=== PATIENT | male | born 1940 | race Caucasian/White ===

== ENCOUNTER 2017-08-28 09:26 | Emergency (ER) | payer MEDICARE, BC ==
[2017-08-28 09:41] VITALS: BP 140/85
[2017-08-28] MEDS ORDERED: Sulfamethoxazole/Trimethoprim 800-160 MG Tab PO ONE (10:42)
--- NOTE | 2017-08-28 10:45 | EDM.PDOC ---
ED HPI GENERAL MEDICAL PROBLEM - General Chief Complaint: Genitourinary Problem Stated Complaint: CATHETHER IS PLUGGED Time Seen by Provider: 08/28/17 10:15 Source of Information: Reports: Patient History Limitations: Reports: No Limitations - History of Present Illness INITIAL COMMENTS - FREE TEXT/NARRATIVE: 77-year-old male attends the ED due to dysfunction or malfunction of his suprapubic catheter which was just replaced 9 days ago. Patient has had a chronic indwelling suprapubic catheter for 20 years. 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 He states over the last 4 days usually been 100 mils of drainage of urine in his drainage bag. He states he is dribbling continues continuously through the penis of urine soaking his depends. He has no abdominal pain. Bladder scan done by nursing staff revealed only 12 mils of urine to be within the bladder. He denies any fever chills. 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 (see below) - Related Data Allergies Allergy/AdvReac Type Severity Reaction Status Date / Time No Known Allergies Allergy Verified 08/28/17 09:41 Home Meds: Home Meds Bicalutamide [Casodex] 50 mg PO DAILY 03/21/15 [History] Leuprolide Acetate [Lupron Depot] 1 dose IM ASDIRECTED 03/21/15 [History] Multivitamin [Multivitamins] 1 each PO DAILY 03/21/15 [History] Polyethylene Glycol 3350 [MiraLAX] 17 gm PO ASDIRECTED 03/21/15 [History] Simvastatin [Zocor] 40 mg PO DAILY 03/21/15 [History] metFORMIN [Glucophage] 500 mg PO DAILY 03/21/15 [History] Sertraline [Zoloft] 50 mg PO DAILY 08/28/17 [History] Past Medical History Other HEENT History: reading glasses Other Gastrointestinal History: currently having rectal bleeding Other Musculoskeletal History: chronic leg pain Other Oncologic History: transitional cell bladder cancer - Past Surgical History GI Surgical History: Reports: Colostomy Male Surgical History: Reports: Suprapubic Catheter Placement, TURP- Transurethral Resection of Prostate Other Male Surgeries/Procedures: prostatectomy, TURP, calculous of bladder, diverticulum of bladder Social & Family History - Tobacco Use Smoking Status *Q: Current Every Day Smoker Years of Tobacco use: 60 Packs/Tins Daily: 0.7 - Caffeine Use Caffeine Use: Reports: Coffee, Soda - Alcohol Use Days Per Week of Alcohol Use: 0 - Recreational Drug Use Recreational Drug Use: No Drug Use in Last 12 Months: No - Living Situation & Occupation Living situation: Reports: Occupation: Retired ED ROS GENERAL - Review of Systems Review Of Systems: See Below Constitutional: Denies: Fever, Chills, Malaise, Weakness, Fatigue, Weight Loss HEENT: Reports: No Symptoms Respiratory: Reports: Shortness of Breath, Cough Cardiovascular: Reports: Blood Pressure Problem. Denies: Chest Pain, Claudication, Dyspnea on Exertion, Edema, Lightheadedness, Orthopnea, Palpitations Endocrine: Reports: Fatigue GI/Abdominal: Reports: Other (Has a chronic suprapubic Cristina catheter. Patient has an colostomy left lower quadrant of the abdomen.). Denies: Abdominal Pain, Anorexia, Black Stool, Bloody Stool : Reports: Other (Chronic suprapubic Cristina catheter. Currently drooping urine per penile urethra for the last 3-4 days due to malfunction occlusion of his suprapubic catheter.) Skin: Reports: No Symptoms Neurological: Reports: No Symptoms Psychiatric: Reports: No Symptoms ED EXAM, RENAL/ - Physical Exam Exam: See Below Exam Limited By: No Limitations General Appearance: Alert, WD/WN, Anxious, Mild Distress GI/Abdominal: Other (Suprapubic catheter wound site is slightly erythematous. He has some intertrigo from skin abutting skin across the lower abdomen.). No: Abnormal Bowel Sounds (Male) Exam: No Hernia, Other (Is oozing clear urine from the penile urethra. His current depends is soaked with urine.) Extremities: Normal Inspection, Normal Range of Motion, Non-Tender, No Pedal Edema Neurological: Alert, CN II-XII Intact, Normal Cognition Psychiatric: Normal Affect, Normal Mood Skin Exam: Warm, Dry, Intact, Normal Color Course - Vital Signs Last Recorded V/S: Last Vital Signs Temp 36.8 C 08/28/17 09:37 Pulse 100 08/28/17 09:37 Resp 16 08/28/17 09:37 BP 140/85 08/28/17 09:37 Pulse Ox 100 08/28/17 09:37 - Orders/Labs/Meds Orders: Active Orders 24 hr Category Date Time Status Insert Cristina Catheter [Insert Urinary Catheter] [OM.PC] Care 08/28/17 10:45 Ordered Q24H Urinary Catheter Assessment [RC] ASDIRECTED Care 08/28/17 10:42 Active Meds: Medications Discontinued Medications Generic Name Dose Route Start Last Admin Trade Name Frebea PRN Reason Stop Dose Admin Trimethoprim/Sulfamethoxazole 1 tab 08/28/17 10:42 08/28/17 10:48 Septra Ds PO 08/28/17 10:43 1 tab ONETIME ONE Administration - Radiology Interpretation Free Text/Narrative:: 77-year-old male presents to the ED with malfunction of his suprapubic catheter for the last 3-4 days. States it's only drained about 100 mils into his drainage bag over the last 3-4 days. The catheter was recently replaced suprapubically 9 days ago and he states initially he was functioning very well. Patient has had any chronic indwelling suprapubic catheter for about 20 years due to radiation damage to the prostatic and penile urethra inability to pass water through the urethra and unable to be catheterized in this fashion due to stenosis. Bladder scan done by nursing staff revealed only 12 mils of urine in the bladder. We were able to instill 180 mils of saline into the bladder through the suprapubic catheter without any issue.But we could not withdraw any of the instilled fluid.Therefore the suprapubic catheter was removed and a new 18-gauge Coude tipped Cristina catheter was placed back into the urinary bladder with good urine flow. This is a 5 mL balloon. She was given Bactrim double strength tablet 1 per ora to prevent bacteremia from catheter change. He will follow-up as necessary. Departure - Departure Time of Disposition: 10:40 Disposition: Home, Self-Care 01 Condition: Fair Clinical Impression: Blocked suprapubic catheter Qualifiers: Encounter type: initial encounter Qualified Code(s): T83.090A - Other mechanical complication of cystostomy catheter, initial encounter - Discharge Information Instructions: Suprapubic Catheter Replacement Referrals: Silvano Gregorio MD [Primary Care Provider] - Forms: ED Department Discharge Additional Instructions: Evaluation the emergency room today in regards to suprapubic catheter malfunction. This catheter was just replaced last Friday i.e. 9 days ago and initially seemed to be functioning well. However the last 3 days has been very minimal drainage of urine from the suprapubic catheter into the drainage bag. As you appreciated there is continues losing her dripping of urine through the penis soaking your depends. Able to irrigate the catheter easily but unable to get any return. This suggests partial occlusion of the catheter with Crustacean substance. Therefore a new suprapubic Cristina catheter was placed with good drainage of urine from the bladder. You were given 1 tablet of Bactrim double strength due to catheter change to prevent any infection from occurring due to catheter change and stagnant urine within the urinary bladder due to failure to drain completely over the last 3 days. Follow-up with personal care provider return to the ED if any further problems occur. - My Orders Last 24 Hours: My Active Orders 08/28/17 10:42 Urinary Catheter Assessment [RC] ASDIRECTED 08/28/17 10:45 Insert Cristina Catheter [Insert Urinary Catheter] [OM.PC] Q24H - Assessment/Plan Last 24 Hours: My Active Orders 08/28/17 10:42 Urinary Catheter Assessment [RC] ASDIRECTED 08/28/17 10:45 Insert Cristina Catheter [Insert Urinary Catheter] [OM.PC] Q24H
== END 2017-08-28 11:10 | disposition home or self-care (01) ==
LOC: JD.ED 09:26
DX: T83.090A Other mechanical complication of cystostomy catheter, initial encounter (principal); C67.9 Malignant neoplasm of bladder, unspecified; F17.210 Nicotine dependence, cigarettes, uncomplicated; Z79.899 Other long term (current) drug therapy
CPT/HCPCS: 51102; 51798; 99283; A9270

== ENCOUNTER 2017-09-03 09:39 | Emergency (ER) | payer MEDICARE, BC ==
[2017-09-03 09:56] VITALS: BP 138/88
--- NOTE | 2017-09-03 11:01 | EDM.PDOC ---
ED HPI GENERAL MEDICAL PROBLEM - General Chief Complaint: Genitourinary Problem Stated Complaint: CATHETER ISSUES Time Seen by Provider: 09/03/17 10:12 Source of Information: Reports: Patient, RN Notes Reviewed - History of Present Illness INITIAL COMMENTS - FREE TEXT/NARRATIVE: 77-year-old male comes in with Cristina catheter concerns. He does have a pubic catheter which was just changed out a bit over a week ago. States he does have history of prostate and bladder cancer. He had A lot of radiation with subsequent scar tissue, difficulty voiding leading to suprapubic catheter placement about 3-4 months ago. His catheter did plug or quit draining about 10 days ago, was replaced and working well up until "last evening". However he he does not feel like his bladder is distended or full at this time. No lower abdominal pain or cramping. He states he actually was able to void quite normally this morning which she has not done in a long time. No fever chills nausea vomiting or other unusual symptomatology. - Related Data Allergies Allergy/AdvReac Type Severity Reaction Status Date / Time No Known Allergies Allergy Verified 09/03/17 09:56 Home Meds: Home Meds Bicalutamide [Casodex] 50 mg PO DAILY 03/21/15 [History] Leuprolide Acetate [Lupron Depot] 1 dose IM ASDIRECTED 03/21/15 [History] Multivitamin [Multivitamins] 1 each PO DAILY 03/21/15 [History] Polyethylene Glycol 3350 [MiraLAX] 17 gm PO ASDIRECTED 03/21/15 [History] Simvastatin [Zocor] 40 mg PO DAILY 03/21/15 [History] metFORMIN [Glucophage] 500 mg PO DAILY 03/21/15 [History] Sertraline [Zoloft] 50 mg PO DAILY 08/28/17 [History] Past Medical History Other HEENT History: reading glasses Other Gastrointestinal History: currently having rectal bleeding Other Musculoskeletal History: chronic leg pain Other Oncologic History: transitional cell bladder cancer - Past Surgical History GI Surgical History: Reports: Colostomy Male Surgical History: Reports: Suprapubic Catheter Placement, TURP- Transurethral Resection of Prostate Other Male Surgeries/Procedures: prostatectomy, TURP, calculous of bladder, diverticulum of bladder Social & Family History - Tobacco Use Smoking Status *Q: Current Every Day Smoker Years of Tobacco use: 60 Packs/Tins Daily: 0.5 - Caffeine Use Caffeine Use: Reports: Coffee - Alcohol Use Days Per Week of Alcohol Use: 0 - Recreational Drug Use Recreational Drug Use: No Drug Use in Last 12 Months: No - Living Situation & Occupation Living situation: Reports: Occupation: Retired ED ROS GENERAL - Review of Systems Review Of Systems: See Below Constitutional: Denies: Fever, Chills HEENT: Reports: No Symptoms Respiratory: Denies: Shortness of Breath Cardiovascular: Denies: Chest Pain GI/Abdominal: Denies: Abdominal Pain, Nausea, Vomiting : Reports: Other (Plugged catheter or catheter that has not been draining since last evening) Musculoskeletal: Reports: No Symptoms Skin: Reports: No Symptoms Neurological: Reports: No Symptoms ED EXAM, RENAL/ - Physical Exam Exam: See Below General Appearance: Alert, No Apparent Distress Throat/Mouth: Normal Inspection Head: Atraumatic Neck: Supple, Full Range of Motion Respiratory/Chest: No Respiratory Distress, Lungs Clear, Normal Breath Sounds Cardiovascular: Regular Rate, Rhythm GI/Abdominal: Soft, Non-Tender, Other (Suprapubic catheter present, no drainage at this time from around the catheter, lower abdomen and pelvis not distended, nontender) Extremities: Normal Inspection, Normal Range of Motion Neurological: Alert, Oriented, No Motor/Sensory Deficits Skin Exam: Warm, Dry, Normal Color Course - Vital Signs Last Recorded V/S: Last Vital Signs Temp 97.7 F 09/03/17 09:53 Pulse 100 09/03/17 09:53 Resp 16 09/03/17 09:53 BP 138/88 09/03/17 09:53 Pulse Ox 100 09/03/17 09:53 - Re-Assessments/Exams Free Text/Narrative Re-Assessment/Exam: 09/03/17 15:21 Bladder scan showed a very minimal amount of urine in the bladder. With irrigation there was no resistance to flow into the bladder and then this did drain out as well without any difficulty. Discharge instructions as documented. Departure - Departure Time of Disposition: 11:00 Disposition: Home, Self-Care 01 Clinical Impression: Complication, blocked Cristina catheter Qualifiers: Encounter type: initial encounter Qualified Code(s): T83.091A - Other mechanical complication of indwelling urethral catheter, initial encounter - Discharge Information Instructions: Suprapubic Catheter Home Guide Referrals: Silvano Gregorio MD [Primary Care Provider] - Forms: ED Department Discharge Additional Instructions: Drink plenty of water to maintain hydration, continue current Cristina catheter management. It irrigated and drained well while here in the ED at this time.
== END 2017-09-03 11:19 | disposition home or self-care (01) ==
LOC: JD.ED 09:39
DX: T83.091A Other mechanical complication of indwelling urethral catheter, initial encounter (principal); F17.210 Nicotine dependence, cigarettes, uncomplicated; Z79.84 Long term (current) use of oral hypoglycemic drugs; Z79.899 Other long term (current) drug therapy; Z85.46 Personal history of malignant neoplasm of prostate; Z85.51 Personal history of malignant neoplasm of bladder
CPT/HCPCS: 51700; 51798; 99283; 99283-25

== ENCOUNTER 2017-09-07 09:20 | Emergency (ER) | payer MEDICARE, BC ==
[2017-09-07 09:42] VITALS: BP 132/74
--- NOTE | 2017-09-07 10:11 | EDM.PDOC ---
ED HPI GENERAL MEDICAL PROBLEM - General Chief Complaint: Genitourinary Problem Stated Complaint: CATHETER ISSUE Time Seen by Provider: 09/07/17 09:54 Source of Information: Reports: Patient History Limitations: Reports: No Limitations - History of Present Illness INITIAL COMMENTS - FREE TEXT/NARRATIVE: The patient presents with a plugged suprapubic cath. He was here 2 weeks ago for the same and it was removed and a pederson cath was inserted in the existing hole. That got plugged last week and they flushed it and it worked for a few more days until Friday evening. He is not having any out now and some urine is leaking out of his penis. He had a suprapubic cath for about 20 years after cancer treatment and radiation. He cannot urinate out of his penis anymore. Onset: Gradual Duration: Day(s): (2) Severity: Moderate Improves with: Reports: None Worsens with: Reports: None Associated Symptoms: Reports: No Other Symptoms - Related Data Allergies Allergy/AdvReac Type Severity Reaction Status Date / Time No Known Allergies Allergy Verified 09/07/17 09:42 Home Meds: Home Meds Bicalutamide [Casodex] 50 mg PO DAILY 03/21/15 [History] Leuprolide Acetate [Lupron Depot] 1 dose IM ASDIRECTED 03/21/15 [History] Multivitamin [Multivitamins] 1 each PO DAILY 03/21/15 [History] Polyethylene Glycol 3350 [MiraLAX] 17 gm PO ASDIRECTED 03/21/15 [History] Simvastatin [Zocor] 40 mg PO DAILY 03/21/15 [History] metFORMIN [Glucophage] 500 mg PO DAILY 03/21/15 [History] Sertraline [Zoloft] 50 mg PO DAILY 08/28/17 [History] Past Medical History Other HEENT History: reading glasses Other Gastrointestinal History: currently having rectal bleeding Other Musculoskeletal History: chronic leg pain Other Oncologic History: transitional cell bladder cancer - Past Surgical History GI Surgical History: Reports: Colostomy Male Surgical History: Reports: Lithotripsy (ESWL), Prostatectomy, Suprapubic Catheter Placement, TURP-Transurethral Resection of Prostate Social & Family History - Tobacco Use Smoking Status *Q: Current Every Day Smoker Years of Tobacco use: 60 Packs/Tins Daily: 0.5 - Caffeine Use Caffeine Use: Reports: Coffee, Soda - Alcohol Use Days Per Week of Alcohol Use: 0 - Recreational Drug Use Recreational Drug Use: No Drug Use in Last 12 Months: No - Living Situation & Occupation Living situation: Reports: Occupation: Retired ED ROS GENERAL - Review of Systems Review Of Systems: See Below Constitutional: Reports: No Symptoms HEENT: Reports: No Symptoms Respiratory: Reports: No Symptoms Cardiovascular: Reports: No Symptoms Endocrine: Reports: No Symptoms GI/Abdominal: Reports: No Symptoms : Reports: Other (Suprapubic cath plugged) Musculoskeletal: Reports: No Symptoms ED EXAM, GI/ABD - Physical Exam Exam: See Below Exam Limited By: No Limitations General Appearance: Alert, No Apparent Distress Ears: Normal External Exam Nose: Normal Inspection Head: Atraumatic, Normocephalic Neck: Normal Inspection Respiratory/Chest: No Respiratory Distress GI/Abdominal Exam: Other (Soft nontender. Suprapubic cath in place and colostomy bag.) Course - Vital Signs Last Recorded V/S: Last Vital Signs Temp 97.6 F 09/07/17 09:40 Pulse 94 09/07/17 09:40 Resp 16 09/07/17 09:40 BP 132/74 09/07/17 09:40 Pulse Ox 100 09/07/17 09:40 - Orders/Labs/Meds Orders: Active Orders 24 hr Category Date Time Status UA W/MICROSCOPIC [URIN] Stat Lab 09/07/17 10:25 Ordered Suprapubic Catheter Management [OM.PC] Routine Oth 09/07/17 10:02 Ordered Labs: Laboratory Tests 09/07/17 Range/Units 10:25 Urine Color Yellow (Yellow) Urine Appearance Cloudy H (Clear) Urine pH 6.0 (5.0-8.0) Ur Specific [place] 1.025 (1.005-1.030) Urine Protein 2+ H (Negative) Urine Glucose (UA) Negative (Negative) Urine Ketones Negative (Negative) Urine Occult Blood 3+ H (Negative) Urine Nitrite Negative (Negative) Urine Bilirubin Negative (Negative) Urine Urobilinogen 0.2 (0.2-1.0) Ur Leukocyte Esterase 3+ H (Negative) Urine RBC 50-75 H (0-5) /hpf Urine WBC 30-40 H (0-5) /hpf Ur Epithelial Cells 0-5 (0-5) /hpf Amorphous Sediment Few H (NOT SEEN) /hpf Urine Bacteria Few (FEW) /hpf Urine Mucus Not seen (FEW) /hpf - Re-Assessments/Exams Free Text/Narrative Re-Assessment/Exam: 09/07/17 10:11 I will have my nurse put a pederson cath back in. 09/07/17 11:06 My nurse put it back in. His UA shows a UTI. He is on an antibiotic already. Departure - Departure Time of Disposition: 11:10 Disposition: Home, Self-Care 01 Condition: Good Clinical Impression: Blocked suprapubic catheter Qualifiers: Encounter type: initial encounter Qualified Code(s): T83.090A - Other mechanical complication of cystostomy catheter, initial encounter - Discharge Information Referrals: Silvano Gregorio MD [Primary Care Provider] - Forms: ED Department Discharge Additional Instructions: Take your medication as prescribed. Follow up with Dr Patel. Please return if you are worse. - My Orders Last 24 Hours: My Active Orders 09/07/17 10:02 Suprapubic Catheter Management [OM.PC] Routine 09/07/17 10:25 UA W/MICROSCOPIC [URIN] Stat - Assessment/Plan Last 24 Hours: My Active Orders 09/07/17 10:02 Suprapubic Catheter Management [OM.PC] Routine 09/07/17 10:25 UA W/MICROSCOPIC [URIN] Stat
== END 2017-09-07 11:13 | disposition home or self-care (01) ==
LOC: JD.ED 09:20
DX: T83.090A Other mechanical complication of cystostomy catheter, initial encounter (principal); F17.210 Nicotine dependence, cigarettes, uncomplicated; Z79.899 Other long term (current) drug therapy; Z79.84 Long term (current) use of oral hypoglycemic drugs; Z85.51 Personal history of malignant neoplasm of bladder
CPT/HCPCS: 51702; 51798; 81001; 99283; 99283-25

== ENCOUNTER 2018-01-18 10:29 | Emergency (ER) | payer MEDICARE, BC | END 2018-01-18 10:34 | LOC: JD.ED 10:29 | DX: Z53.21 Procedure and treatment not carried out due to patient leaving prior to being seen by health care provider (principal) ==

== ENCOUNTER 2019-01-24 10:09 | Emergency (ER) | payer MEDICARE, BC ==
[2019-01-24 11:05] VITALS: BP 148/73
--- NOTE | 2019-01-24 11:18 | EDM.PDOC ---
ED HPI GENERAL MEDICAL PROBLEM - General Chief Complaint: Genitourinary Problem Stated Complaint: CATHETER ISSUE Time Seen by Provider: 01/24/19 11:17 - History of Present Illness INITIAL COMMENTS - FREE TEXT/NARRATIVE: 78-year-old male presents emergency room after his suprapubic catheter came out This fell out in his sleep. He thinks approximately 6-7 hours prior to arrival here. He's not had any unusual symptoms associated with this. He's not any recent fevers or chills. He does provide the catheter that came out. This does not have any associated attachment devices the balloon is not inflated. - Related Data Allergies Allergy/AdvReac Type Severity Reaction Status Date / Time No Known Allergies Allergy Verified 09/07/17 09:42 Home Meds: Home Meds Bicalutamide [Casodex] 50 mg PO DAILY 03/21/15 [History] Leuprolide Acetate [Lupron Depot] 1 dose IM ASDIRECTED 03/21/15 [History] Multivitamin [Multivitamins] 1 each PO DAILY 03/21/15 [History] Polyethylene Glycol 3350 [MiraLAX] 17 gm PO ASDIRECTED 03/21/15 [History] Simvastatin [Zocor] 40 mg PO DAILY 03/21/15 [History] metFORMIN [Glucophage] 500 mg PO DAILY 03/21/15 [History] Sertraline [Zoloft] 50 mg PO DAILY 08/28/17 [History] Past Medical History Other HEENT History: reading glasses Other Gastrointestinal History: currently having rectal bleeding Genitourinary History: Reports: Other (See Below) Other Genitourinary History: Suprapubic cath for CA of bladder and complications from treatment Other Musculoskeletal History: chronic leg pain Endocrine/Metabolic History: Reports: Diabetes, Type II (Controlled with metformin.) Oncologic (Cancer) History: Reports: Metastatic (Has known metastatic disease to his left pelvis. Primary cancer of the prostate 21 years ago treated with radiation and cesium seed implants. Recently complicated by necrosis of the urinary bladder and distal colon with development of pelvic abscess. This required a diverting colostomy and IV antibiotics for 7 weeks clear. Infection. Subsequently his had a suprapubic catheter in place for longer than a year.) Other Oncologic History: transitional cell bladder cancer - Past Surgical History GI Surgical History: Reports: Colostomy Male Surgical History: Reports: Lithotripsy (ESWL), Prostatectomy, Suprapubic Catheter Placement, TURP-Transurethral Resection of Prostate Social & Family History - Caffeine Use Caffeine Use: Reports: Coffee - Living Situation & Occupation Living situation: Reports: Occupation: Retired ED ROS GENERAL - Review of Systems Review Of Systems: See Below Constitutional: Reports: No Symptoms HEENT: Reports: No Symptoms Respiratory: Reports: No Symptoms Cardiovascular: Reports: No Symptoms GI/Abdominal: Reports: No Symptoms : Reports: Other (No problems other than the catheter coming out) Neurological: Reports: No Symptoms ED EXAM, RENAL/ - Physical Exam Exam: See Below Exam Limited By: No Limitations General Appearance: Alert, No Apparent Distress Respiratory/Chest: No Respiratory Distress, Lungs Clear, Normal Breath Sounds Cardiovascular: Regular Rate, Rhythm, No Edema, No Murmur GI/Abdominal: Normal Bowel Sounds, Soft, Non-Tender, Other (2. Pubic site identified does not appear abnormal) Course - Vital Signs Last Recorded V/S: Last Vital Signs Temp 36.7 C 01/24/19 11:04 Pulse 100 01/24/19 11:04 Resp 20 01/24/19 11:04 BP 148/73 H 01/24/19 11:04 Pulse Ox 98 01/24/19 11:04 - Orders/Labs/Meds Orders: Active Orders 24 hr Category Date Time Status Urinary Catheter Assessment [RC] ASDIRECTED Care 01/24/19 12:01 Active Urinary Catheter Insertion [Insert Urinary Catheter] [ Care 01/24/19 11:00 Ordered OM.PC] Q24H Labs: Laboratory Tests 01/24/19 Range/Units 11:45 Urine Color Light yellow (Yellow) Urine Appearance Turbid H (Clear) Urine pH 7.0 (5.0-8.0) Ur Specific [place] 1.025 (1.005-1.030) Urine Protein 2+ H (Negative) Urine Glucose (UA) Negative (Negative) Urine Ketones Negative (Negative) Urine Occult Blood 3+ H (Negative) Urine Nitrite Negative (Negative) Urine Bilirubin Negative (Negative) Urine Urobilinogen 0.2 (0.2-1.0) Ur Leukocyte Esterase 3+ H (Negative) Urine RBC 10-20 H (0-5) /hpf Urine WBC 10-20 H (0-5) /hpf Ur Squamous Epith Cells 0-5 (0-5) /hpf Urine Bacteria Few (FEW) /hpf Urine Mucus Few (FEW) /hpf - Re-Assessments/Exams Free Text/Narrative Re-Assessment/Exam: 01/24/19 12:41 The patient's suprapubic catheter fell out 6-7 hours prior to arrival. We do not stock these here a 14 [place] coud was placed without difficulty with drain about 120 mL of urine out which isn't much for that time frame however the patient states he's only had one or 2 cups of coffee today urinalysis looks Like a contaminated suprapubic catheter specimen we will culture it but will not start anything. The patient will follow-up with his regular physician tomorrow to have his catheter replaced Departure - Departure Time of Disposition: 12:43 Disposition: Home, Self-Care 01 Clinical Impression: Suprapubic catheter dysfunction - Discharge Information Referrals: Silvano Gregorio MD [Primary Care Provider] - Forms: ED Department Discharge Additional Instructions: Follow-up with Dr. Gregorio tomorrow and have this catheter replaced by the proper device. Return to the emergency room with any questions or problems. A urine culture is pending - My Orders Last 24 Hours: My Active Orders 01/24/19 11:00 Urinary Catheter Insertion [Insert Urinary Catheter] [OM.PC] Q24H 01/24/19 12:01 Urinary Catheter Assessment [RC] ASDIRECTED - Assessment/Plan Last 24 Hours: My Active Orders 01/24/19 11:00 Urinary Catheter Insertion [Insert Urinary Catheter] [OM.PC] Q24H 01/24/19 12:01 Urinary Catheter Assessment [RC] ASDIRECTED
== END 2019-01-24 12:51 | disposition home or self-care (01) ==
LOC: JD.ED 10:09
DX: T83.098A Other mechanical complication of other urinary catheter, initial encounter (principal); E11.9 Type 2 diabetes mellitus without complications; Z79.84 Long term (current) use of oral hypoglycemic drugs; Z79.899 Other long term (current) drug therapy; Z90.79 Acquired absence of other genital organ(s)
CPT/HCPCS: 51703; 81001; 99282; 99283-25

== ENCOUNTER 2019-01-25 13:42 | Emergency (ER) | payer MEDICARE, BC ==
[2019-01-25 13:55] VITALS: BP 147/74
--- NOTE | 2019-01-25 13:55 | EDM.PDOC ---
ED HPI GENERAL MEDICAL PROBLEM - General Chief Complaint: Genitourinary Problem Stated Complaint: CATHETER PROBLEM Time Seen by Provider: 01/25/19 13:54 - History of Present Illness INITIAL COMMENTS - FREE TEXT/NARRATIVE: 78-year-old male returns to the emergency room with catheter issues. I saw the patient yesterday after suprapubic catheter fell out. Is able to get a 16 Citizen [place] coud in and he had no problems with this he followed up in his regular clinic today to have a super pubic catheter placed back in as we did not have access to one yesterday. However they could not get it in after removing the catheter I put in yesterday. - Related Data Allergies Allergy/AdvReac Type Severity Reaction Status Date / Time No Known Allergies Allergy Verified 01/25/19 13:55 Home Meds: Home Meds Bicalutamide [Casodex] 50 mg PO DAILY 03/21/15 [History] Leuprolide Acetate [Lupron Depot] 1 dose IM ASDIRECTED 03/21/15 [History] Multivitamin [Multivitamins] 1 each PO DAILY 03/21/15 [History] Polyethylene Glycol 3350 [MiraLAX] 17 gm PO ASDIRECTED 03/21/15 [History] Simvastatin [Zocor] 40 mg PO DAILY 03/21/15 [History] metFORMIN [Glucophage] 500 mg PO DAILY 03/21/15 [History] Sertraline [Zoloft] 50 mg PO DAILY 08/28/17 [History] Past Medical History HEENT History: Reports: Impaired Vision Other HEENT History: reading glasses Other Gastrointestinal History: currently having rectal bleeding Genitourinary History: Reports: Other (See Below) Other Genitourinary History: Suprapubic cath for CA of bladder and complications from treatment Other Musculoskeletal History: chronic leg pain Endocrine/Metabolic History: Reports: Diabetes, Type II (Controlled with metformin.) Oncologic (Cancer) History: Reports: Metastatic (Has known metastatic disease to his left pelvis. Primary cancer of the prostate 21 years ago treated with radiation and cesium seed implants. Recently complicated by necrosis of the urinary bladder and distal colon with development of pelvic abscess. This required a diverting colostomy and IV antibiotics for 7 weeks clear. Infection. Subsequently his had a suprapubic catheter in place for longer than a year.) Other Oncologic History: transitional cell bladder cancer - Past Surgical History GI Surgical History: Reports: Colostomy Male Surgical History: Reports: Lithotripsy (ESWL), Prostatectomy, Suprapubic Catheter Placement, TURP-Transurethral Resection of Prostate Social & Family History - Caffeine Use Caffeine Use: Reports: Coffee - Living Situation & Occupation Living situation: Reports: Occupation: Retired ED ROS GENERAL - Review of Systems Review Of Systems: See Below Constitutional: Reports: No Symptoms Respiratory: Reports: No Symptoms Cardiovascular: Reports: No Symptoms GI/Abdominal: Reports: No Symptoms ED EXAM, RENAL/ - Physical Exam Exam: See Below Exam Limited By: No Limitations General Appearance: Alert, No Apparent Distress Respiratory/Chest: No Respiratory Distress, Lungs Clear, Normal Breath Sounds Cardiovascular: Regular Rate, Rhythm, No Edema, No Murmur GI/Abdominal: Normal Bowel Sounds, Soft, Non-Tender Course - Vital Signs Last Recorded V/S: Last Vital Signs Temp 36.3 C 01/25/19 13:53 Pulse 116 H 01/25/19 13:53 Resp 16 01/25/19 13:53 BP 147/74 H 01/25/19 13:53 Pulse Ox 100 01/25/19 13:53 - Orders/Labs/Meds Meds: Medications Discontinued Medications Generic Name Dose Route Start Last Admin Trade Name Freq PRN Reason Stop Dose Admin Lidocaine HCl 10 ml 01/25/19 14:14 01/25/19 14:17 Xylocaine 2% Jelly MUCMEM 01/25/19 14:15 10 ml ONETIME ONE Administration Lidocaine HCl Confirm 01/25/19 14:13 01/25/19 14:17 Xylocaine 2% Jelly Administered 01/25/19 14:14 Not Given Dose 10 ml .ROUTE .STK-MED ONE - Re-Assessments/Exams Free Text/Narrative Re-Assessment/Exam: 01/25/19 15:24 With the assistance of Dr. Fernandez attempted to place a 20 [place] superpubic catheter in that was set up for initial placement however the catheter did not have a balloon on it. We attempted a 20 [place] coud catheter. But we cannot get this and we ultimately did get a 16 [place] coud in. Patient has follow-up with urology on . Departure - Departure Time of Disposition: 15:27 Disposition: Home, Self-Care 01 Clinical Impression: Encounter for suprapubic catheter care - Discharge Information Forms: ED Department Discharge Additional Instructions: Return to the emergency room with any questions problems or concerns. Follow-up with urology on as scheduled.
[2019-01-25] MEDS ORDERED: Lidocaine 2% Jelly 10 ML Urojet ONE (14:13)
[2019-01-25] MEDS ORDERED: Lidocaine 2% Jelly 10 ML Urojet MUCMEM ONE (14:14)
== END 2019-01-25 15:35 | disposition home or self-care (01) ==
LOC: JD.ED 13:42
DX: Z46.6 Encounter for fitting and adjustment of urinary device (principal); E11.9 Type 2 diabetes mellitus without complications; Z79.84 Long term (current) use of oral hypoglycemic drugs; Z79.899 Other long term (current) drug therapy
CPT/HCPCS: 51102; 99283

== ENCOUNTER 2019-11-27 13:03 | Emergency (ER) | payer MEDICARE, BC ==
[2019-11-27 13:16] VITALS: BP 152/84; PULSE 101
--- NOTE | 2019-11-27 13:37 | EDM.PDOC ---
ED HPI GENERAL MEDICAL PROBLEM - General Chief Complaint: Genitourinary Problem Stated Complaint: need cath changed Time Seen by Provider: 11/27/19 13:12 Source of Information: Reports: Patient History Limitations: Reports: No Limitations - History of Present Illness INITIAL COMMENTS - FREE TEXT/NARRATIVE: Patient is an 79-year-old male who presents to the emergency department after his suprapubic catheter fell out. He is unsure exactly when it occurred, but states it may have been during the night. He did bring the old catheter with and it is a 16 Serbian. He denies any pain or feelings of bladder distention. - Related Data Allergies Allergy/AdvReac Type Severity Reaction Status Date / Time No Known Allergies Allergy Verified 11/27/19 13:13 Home Meds: Home Meds Bicalutamide [Casodex] 50 mg PO DAILY 03/21/15 [History] Leuprolide Acetate [Lupron Depot] 1 dose IM ASDIRECTED 03/21/15 [History] Multivitamin [Multivitamins] 1 each PO DAILY 03/21/15 [History] Polyethylene Glycol 3350 [MiraLAX] 17 gm PO ASDIRECTED 03/21/15 [History] Simvastatin [Zocor] 40 mg PO DAILY 03/21/15 [History] metFORMIN [Glucophage] 500 mg PO DAILY 03/21/15 [History] Sertraline [Zoloft] 50 mg PO DAILY 08/28/17 [History] Past Medical History HEENT History: Reports: Impaired Vision Other HEENT History: reading glasses Other Gastrointestinal History: currently having rectal bleeding Genitourinary History: Reports: Other (See Below) Other Genitourinary History: Suprapubic cath for CA of bladder and complications from treatment Other Musculoskeletal History: chronic leg pain Endocrine/Metabolic History: Reports: Diabetes, Type II (Controlled with metformin.) Oncologic (Cancer) History: Reports: Metastatic (Has known metastatic disease to his left pelvis. Primary cancer of the prostate 21 years ago treated with radiation and cesium seed implants. Recently complicated by necrosis of the ur inary bladder and distal colon with development of pelvic abscess. This required a diverting colostomy and IV antibiotics for 7 weeks clear. Infection. Subsequently his had a suprapubic catheter in place for longer than a year.) Other Oncologic History: transitional cell bladder cancer - Past Surgical History GI Surgical History: Reports: Colostomy Male Surgical History: Reports: Lithotripsy (ESWL), Prostatectomy, Suprapubic Catheter Placement, TURP-Transurethral Resection of Prostate Social & Family History - Caffeine Use Caffeine Use: Reports: Coffee - Living Situation & Occupation Living situation: Reports: Occupation: Retired ED ROS GENERAL - Review of Systems Review Of Systems: Comprehensive ROS is negative, except as noted in HPI. ED EXAM, RENAL/ - Physical Exam Exam: See Below Exam Limited By: No Limitations General Appearance: Alert, WD/WN, No Apparent Distress Respiratory/Chest: No Respiratory Distress, Lungs Clear, Normal Breath Sounds, No Accessory Muscle Use, Chest Non-Tender Cardiovascular: Normal Peripheral Pulses, Regular Rate, Rhythm, No Edema, No Gallop, No JVD, No Murmur, No Rub GI/Abdominal: Other (Well-healed suprapubic catheter site. No signs of redness or infection.) Neurological: Alert, Oriented, CN II-XII Intact, Normal Cognition, Normal Gait, Normal Reflexes, No Motor/Sensory Deficits Psychiatric: Normal Affect, Normal Mood Skin Exam: Warm, Dry, Intact, Normal Color, No Rash Course - Vital Signs Last Recorded V/S: Last Vital Signs Temp 98.0 F 11/27/19 13:13 Pulse 101 H 11/27/19 13:13 Resp 16 11/27/19 13:13 BP 152/84 H 11/27/19 13:13 Pulse Ox 100 11/27/19 13:13 - Re-Assessments/Exams Free Text/Narrative Re-Assessment/Exam: 11/27/19 13:35 Attempted insertion of a 16 [place] suprapubic catheter, however was unable to pass the catheter through the opening. 14 [place] Cristina catheter inserted using sterile technique. Clear yellow urine returned. Patient tolerated procedure well. New leg bag applied. We will discharge the patient home. Departure - Departure Time of Disposition: 13:36 Disposition: Home, Self-Care 01 Condition: Good Clinical Impression: Suprapubic catheter dysfunction Qualifiers: Encounter type: initial encounter Qualified Code(s): T83.010A - Breakdown (mechanical) of cystostomy catheter, initial encounter - Discharge Information Instructions: Suprapubic Catheter Replacement, Suprapubic Catheter Home Guide Referrals: Silvano Gregorio MD [Primary Care Provider] - Forms: ED Department Discharge Additional Instructions: You were seen in the emergency department today after your suprapubic catheter fell out. A new 14 [place] catheter was inserted. Urine was returned after insertion. Continue to care for your catheter as previously. Return to the ER as needed. Sepsis Event Note (ED) - Evaluation Sepsis Screening Result: No Definite Risk
== END 2019-11-27 13:52 | disposition home or self-care (01) ==
LOC: JD.ED 13:03
DX: T83.090A Other mechanical complication of cystostomy catheter, initial encounter (principal); E11.9 Type 2 diabetes mellitus without complications; Z79.84 Long term (current) use of oral hypoglycemic drugs; Z79.899 Other long term (current) drug therapy
CPT/HCPCS: 51703; 51705; 99282; 99283-25

== ENCOUNTER 2019-12-25 18:59 | Inpatient (IN) | payer MEDICARE, BC ==
--- NOTE | 2019-12-25 19:59 | EDM.PDOC ---
ED HPI GENERAL MEDICAL PROBLEM - General Chief Complaint: Head Injury Stated Complaint: NELLY CRUZ Time Seen by Provider: 12/25/19 19:28 Source of Information: Reports: Patient History Limitations: Reports: No Limitations - History of Present Illness INITIAL COMMENTS - FREE TEXT/NARRATIVE: This is an 79-year-old male. He has a history of a colostomy due to a pelvic infection some years ago. He has a suprapubic catheter due to bladder cancer and he has had a prostatectomy. He is a [id number] diabetic. He says that his prostate has been good and his last check. His metastatic cancer which is transitional bladder cancer he had a good bill of health the last time he was seen. He apparently was weed eating outside about 3 weeks ago and hurt his lower back and is been bothering him for the last 3 weeks but he has not seen anyone. Over the last 3 days he has been having some abdominal cramps that come and go and nothing that he is taken [id number] seems to help. His morning apparently he got up to empty his catheter and he was rather weak and he fell into the bathtub and scraped the top of his head. He fell a second time according to the EMS between the bed and the wall and that is why they were called to pick him up. Patient states he feels weak all over and is having a hard time getting up. He denies any COVID exposure to anyone positive. He does have a slight cough this been going on for several days but it does not interfere with his breathing. He denies any fever or chills. No nausea or vomiting. The patient tells me he is not been drinking much fluids lately. - Related Data Allergies Allergy/AdvReac Type Severity Reaction Status Date / Time No Known Allergies Allergy Verified 11/27/19 13:13 Home Meds: Home Meds Bicalutamide [Casodex] 50 mg PO DAILY 03/21/15 [History] Leuprolide Acetate [Lupron Depot] 1 dose IM ASDIRECTED 03/21/15 [History] Multivitamin [Multivitamins] 1 each PO DAILY 03/21/15 [History] Simvastatin [Zocor] 40 mg PO DAILY 03/21/15 [History] metFORMIN [Glucophage] 500 mg PO DAILY 03/21/15 [History] Past Medical History HEENT History: Reports: Impaired Vision Other HEENT History: reading glasses Other Gastrointestinal History: currently having rectal bleeding Genitourinary History: Reports: Other (See Below) Other Genitourinary History: Suprapubic cath for CA of bladder and complications from treatment Other Musculoskeletal History: chronic leg pain Endocrine/Metabolic History: Reports: Diabetes, Type II Oncologic (Cancer) History: Reports: Metastatic Other Oncologic History: transitional cell bladder cancer - Past Surgical History GI Surgical History: Reports: Colostomy Male Surgical History: Reports: Lithotripsy (ESWL), Prostatectomy, Suprapubic Catheter Placement, TURP-Transurethral Resection of Prostate Social & Family History - Family History Family Medical History: Noncontributory - Tobacco Use Smoking Status *Q: Current Every Day Smoker Years of Tobacco use: 60 Packs/Tins Daily: 1 - Caffeine Use Caffeine Use: Reports: None - Recreational Drug Use Recreational Drug Use: No - Living Situation & Occupation Living situation: Reports: Occupation: Retired ED ROS GENERAL - Review of Systems Review Of Systems: See Below Constitutional: Reports: Weakness, Fatigue. Denies: Fever, Chills HEENT: Reports: No Symptoms Respiratory: Reports: Cough. Denies: Shortness of Breath Cardiovascular: Denies: Chest Pain Endocrine: Reports: No Symptoms GI/Abdominal: Reports: Abdominal Pain, Other (He has a colostomy it appears to be permanent). Denies: Diarrhea, Nausea, Vomiting : Reports: Other (He has a chronic suprapubic catheter) Musculoskeletal: Reports: Other (Patient states he feels weak all over) Skin: Reports: No Symptoms Neurological: Reports: No Symptoms Psychiatric: Reports: No Symptoms ED EXAM, HEAD INJURY - Physical Exam Exam: See Below Exam Limited By: No Limitations General Appearance: Alert, WD/WN, No Apparent Distress Head: Normocephalic, Other (He has an abrasion on the left upper scalp area above the forehead and he denies any headache.) Nexus Criteria: No: Posterior, Midline Cervical Tenderness Eyes: Bilateral Eye: Normal Inspection Ears: Normal External Exam Nose: Normal Inspection Throat/Mouth: Normal Inspection, Normal Lips, Normal Voice, No Airway Compromise, Other (His mucous membranes are very dry) Neck: Full Range of Motion Respiratory: No Respiratory Distress, Lungs Clear, Normal Breath Sounds Cardiovascular: Regular Rate, Rhythm, No Murmur, Tachycardia GI/Abdominal Exam: Soft, Non-Tender, Other (Bowel sounds are positive he complains of mid abdominal cramping at times but none when I was there) Extremities: Normal Inspection, Other (Complains of weakness of his extremities especially his lower extremities, but he will cross his legs and is able to lift his legs. He just says he cannot support his weight and he feels wobbly.) Neurologic: No Motor/Sensory Deficits, Alert, Normal Mood/Affect, Oriented x 3 Skin: Warm/Dry, Other (Skin turgor is poor) - [place] Coma Score Best Eye Response ([place]): (4) Open Spontaneously Best Verbal Response (Rachael): (5) Oriented Best Motor Response (Rachael): (6) Obeys Commands [place] Total: 15 Course - Vital Signs Last Recorded V/S: Last Vital Signs Temp 100.6 F 12/25/19 19:12 Pulse 114 H 12/25/19 19:12 Resp 16 12/25/19 19:12 BP 118/57 L 12/25/19 19:12 Pulse Ox 96 12/25/19 19:12 - Orders/Labs/Meds Orders: Active Orders 24 hr Category Date Time Status Head wo Cont [CT] Stat Exams 12/26/19 01:19 Taken CORONAVIRUS COVID-19 MELA [MOLEC] Stat Lab 12/26/19 02:19 Ordered CULTURE URINE [RM] Stat Lab 12/25/19 20:32 Received Sodium Chloride 0.9% [Normal Saline] 1,000 ml Med 12/25/19 20:00 Active IV ASDIRECTED Medication Orders Sodium Chloride (Normal Saline) 1,000 mls @ 1,000 mls/hr IV ASDIRECTED PHILL Last Admin: 12/25/19 20:26 Dose: 1,000 mls/hr Documented by: EUGENE Labs: Laboratory Tests 12/25/19 12/25/19 12/25/19 Range/Units 20:15 20:15 20:32 WBC 8.12 (4.23-9.07) K/mm3 RBC 3.85 L (4.63-6.08) M/mm3 Hgb 11.5 L D (13.7-17.5) gm/dl Hct 34.9 L (40.1-51.0) % MCV 90.6 (79.0-92.2) fl MCH 29.9 (25.7-32.2) pg MCHC 33.0 (32.2-35.5) g/dl RDW Std Deviation 44.3 H (35.1-43.9) fL Plt Count 208 D (163-337) K/mm3 MPV 9.8 (9.4-12.3) fl Neut % (Auto) 86.4 H (34.0-67.9) % Lymph % (Auto) 6.3 L (21.8-53.1) % [place] % (Auto) 6.8 (5.3-12.2) % Eos % (Auto) 0 L (0.8-7.0) Baso % (Auto) 0.1 (0.1-1.2) % Neut # (Auto) 7.02 H (1.78-5.38) K/mm3 Lymph # (Auto) 0.51 L (1.32-3.57) K/mm3 [place] # (Auto) 0.55 (0.30-0.82) K/mm3 Eos # (Auto) 0.00 L (0.04-0.54) K/mm3 Baso # (Auto) 0.01 (0.01-0.08) K/mm3 Manual Slide Review Abnormal smear Sodium 125 L (136-145) mEq/L Potassium 3.7 (3.5-5.1) mEq/L Chloride 91 L (98-107) mEq/L Carbon Dioxide 23 (21-32) mEq/L Anion Gap 14.7 (5-15) BUN 29 H (7-18) mg/dL Creatinine 1.9 H (0.7-1.3) mg/dL Est Cr Clr Drug Dosing 33.03 mL/min Estimated GFR (MDRD) 34 (>60) mL/min BUN/Creatinine Ratio 15.3 (14-18) Glucose 231 H (83-115) mg/dL Calcium 8.8 (8.5-10.1) mg/dL Magnesium 1.4 L (1.8-2.4) mg/dl Total Bilirubin 0.5 (0.2-1.0) mg/dL AST 30 (15-37) U/L ALT 22 (16-63) U/L Alkaline Phosphatase 98 (46-116) U/L Total Protein 7.5 (6.4-8.2) g/dl Albumin 3.2 L (3.4-5.0) g/dl Globulin 4.3 gm/dL Albumin/Globulin Ratio 0.7 L (1-2) Urine Color Yellow (Yellow) Urine Appearance Cloudy H (Clear) Urine pH 7.5 (5.0-8.0) Ur Specific [place] 1.020 (1.005-1.030) Urine Protein 2+ H (Negative) Urine Glucose (UA) Negative (Negative) Urine Ketones Negative (Negative) Urine Occult Blood Trace-intact H (Negative) Urine Nitrite Positive H (Negative) Urine Bilirubin Negative (Negative) Urine Urobilinogen 0.2 (0.2-1.0) Ur Leukocyte Esterase 2+ H (Negative) Urine RBC 0-5 (0-5) /hpf Urine WBC 20-30 H (0-5) /hpf Ur Squamous Epith Cells 0-5 (0-5) /hpf Triple Phos Crystals Few H (NONE) /hpf Amorphous Sediment Many H (NOT SEEN) /hpf Urine Bacteria Moderate H (FEW) /hpf Urine Mucus Rare (FEW) /hpf Meds: Medications Generic Name Dose Route Start Last Admin Trade Name Freq PRN Reason Stop Dose Admin Sodium Chloride 1,000 mls @ 1,000 mls/hr 12/25/19 20:00 12/25/19 20:26 Normal Saline IV 1,000 mls/hr ASDIRECTED PHILL Administration Discontinued Medications Generic Name Dose Route Start Last Admin Trade Name Freq PRN Reason Stop Dose Admin Lactated Ringer's 1,000 mls @ 999 mls/hr 12/25/19 21:27 12/25/19 21:31 Ringers, Lactated IV 12/25/19 22:27 999 mls/hr .BOLUS ONE Administration Lactated Ringer's 1,000 mls @ 999 mls/hr 12/25/19 23:18 12/25/19 23:19 Ringers, Lactated IV 12/26/19 00:18 999 mls/hr .BOLUS ONE Administration - Radiology Interpretation Free Text/Narrative:: CT scan of his head did not show any acute intracranial abnormalities - Re-Assessments/Exams Free Text/Narrative Re-Assessment/Exam: 12/26/19 02:23 Attempted to get the patient up and walk. It required 2 people holding him and he could not take a normal step or even close to normal step. When he tried to sit down he missed the bed and could not straighten his legs out to get back up on the bed and had to be lifted up to put on the bed. He failed his road test. I did speak to his regarding his weakness and apparently this is been happening over the last several days until he fell twice yesterday. I did speak to Dr. Padilla who agrees to accept the patient for admission. Departure - Departure Time of Disposition: 02:25 Disposition: Admitted As Inpatient 66 Condition: Poor Clinical Impression: Hyponatremia, Generalized weakness, Renal insufficiency, Moderate dehydration Fall Qualifiers: Encounter type: initial encounter Qualified Code(s): W19.XXXA - Unspecified fall, initial encounter - Discharge Information Sepsis Event Note (ED) - Evaluation Sepsis Screening Result: No Definite Risk - Focused Exam Vital Signs: Vital Signs Temp Pulse Resp BP Pulse Ox 12/25/19 19:12 100.6 F 114 H 16 118/57 L 96 ED Communication - ED Communication Date/Time Date: 12/26/19 Time Called: 02:24 - Discussed Case With (1) Discussed Case With (1): Admitting Provider Person/s Notified (1): Dr. Padilla (She will admit the patient for further evaluation and treatment) - My Orders Last 24 Hours: My Active Orders 12/25/19 20:00 Sodium Chloride 0.9% [Normal Saline] 1,000 ml IV ASDIRECTED 12/25/19 20:32 CULTURE URINE [RM] Stat 12/26/19 01:19 Head wo Cont [CT] Stat 12/26/19 02:19 CORONAVIRUS COVID-19 MELA [MOLEC] Stat - Assessment/Plan Last 24 Hours: My Active Orders 12/25/19 20:00 Sodium Chloride 0.9% [Normal Saline] 1,000 ml IV ASDIRECTED 12/25/19 20:32 CULTURE URINE [RM] Stat 12/26/19 01:19 Head wo Cont [CT] Stat 12/26/19 02:19 CORONAVIRUS COVID-19 MELA [MOLEC] Stat
[2019-12-25] MEDS ORDERED: Sodium Chloride 0.9% 1,000 ML IV SCH (20:00)
[2019-12-25] MEDS ORDERED: Lactated Ringers 1,000 ML IV ONE ×2 (21:27→23:18)
[2019-12-26] MEDS ORDERED: Acetaminophen 325 MG Tab PO PRN (03:49)
[2019-12-26] MEDS ORDERED: Sodium Chloride 0.9% 10 ML Syringe FLUSH PRN (03:53)
--- NOTE | 2019-12-26 06:30 | CT ---
Head CT Technique: Multiple axial sections through the brain were obtained. Intravenous contrast was not utilized. Comparison: No prior intracranial imaging is available. Findings: Ventricles along with basal cisterns and sulci over the convexities are mildly prominent. Diminished density noted within the periventricular and subcortical white matter compatible with small vessel ischemic demyelination change. No evidence of intracranial hemorrhage. No midline shift or mass-effect is seen. Atherosclerotic calcification seen within the vertebral vessels and within the carotid siphon. No acute calvarial finding is appreciated on bone window settings. Minimal fluid is seen within the right mastoid sinus. Visualized paranasal sinuses show nothing acute. Impression: 1. Senescent change as noted above. 2. Minimal fluid within the right mastoid sinus most likely relating to retained secretions. 3. Nothing acute is seen intracranially. Diagnostic code #2 This report was dictated in MDT I agree with preliminary report from Joanna, finalized on 12/26/19, 3:06 AM Central Daylight Time
--- NOTE | 2019-12-26 08:40 | PCM.HP.2 ---
H&P History of Present Illness - General Date of Service: 12/26/19 Admit Problem/Dx: Admission Diagnosis/Problem Admission Diagnosis/Problem Hyponatremia - History of Present Illness Initial Comments - Free Text/Narative: This is an 79-year-old male with past medical history of diabetes, suprapubic catheter and colostomy who comes to the ED brought by EMS by family after a fall. As per patient he had an episode 3 weeks ago when he hurt his back, after that his range of motion was decreased. 3 days ago he started having nausea with multiple episodes of vomiting for 48 hours with inability to tolerate PO. Yesterday patient went to the restroom to empty his urine container after which he fell into the bathtub and hit his head; he called his who came to try to get him up. was unable to do so for which she called their son who came to help. They were able to get patient up to his bed and while was helping him get comfortable he rolled of the bed and they both had to get him up again. At that time, they moved patient to his chair and later where unable to get him up as he couldn't hold himself up, it was at that time when they decided to call EMS. Once EMS arrived patient was able to stand up with 2 people assisting and took 2-3 steps to [facility]. Patient denies any fevers, chills, chest pain, shortness of breath, dizziness, headaches, loss of consciousness prior to fall but only lost his balance. Denies any prior falls, abdominal pain, distention, diarrhea, constipation. Does not drink enough water usually. - Related Data Allergies/Adverse Reactions: Allergies Allergy/AdvReac Type Severity Reaction Status Date / Time No Known Allergies Allergy Verified 12/26/19 05:46 Home Medications: Home Meds Bicalutamide [Casodex] 50 mg PO DAILY 03/21/15 [History] Leuprolide Acetate [Lupron Depot] 1 dose IM ASDIRECTED 03/21/15 [History] Simvastatin [Zocor] 40 mg PO DAILY 03/21/15 [History] Chlorthalidone 12.5 mg PO DAILY 12/26/19 [History] Glimepiride 1 mg PO DAILY 12/26/19 [History] Non-Formulary Medication [NF Drug] 1 applic TOP Q6H PRN 12/26/19 [History] Sodium Bicarbonate 1 tab PO BID 12/26/19 [History] Past Medical History HEENT History: Reports: None, Impaired Vision Other HEENT History: reading glasses Other Gastrointestinal History: currently having rectal bleeding Genitourinary History: Reports: Other (See Below) Other Genitourinary History: Suprapubic cath for CA of bladder and complications from treatment Other Musculoskeletal History: chronic leg pain Endocrine/Metabolic History: Reports: Diabetes, Type II Oncologic (Cancer) History: Reports: Metastatic Other Oncologic History: transitional cell bladder cancer - Past Surgical History GI Surgical History: Reports: Colostomy Male Surgical History: Reports: Lithotripsy (ESWL), Prostatectomy, Suprapubic Catheter Placement, TURP-Transurethral Resection of Prostate Social & Family History - Family History Family Medical History: Noncontributory - Tobacco Use Smoking Status *Q: Current Every Day Smoker Years of Tobacco use: 60 Packs/Tins Daily: 1 Used Tobacco, but Quit: No Second Hand Smoke Exposure: No - Caffeine Use Caffeine Use: Reports: Other Other Caffeine Use: unknown - Recreational Drug Use Recreational Drug Use: No - Living Situation & Occupation Living situation: Reports: Occupation: Retired H&P Review of Systems - Review of Systems: Review Of Systems: See Below General: Reports: Malaise, Weakness, Fatigue, Decreased Appetite. Denies: Fever, Chills, Night Sweats, Diaphoresis, Weight Loss, Weight Gain HEENT: Denies: Rhinitis, Post Nasal Drip, Sinus Congestion, Sore Throat, Vertigo, Visual Changes Pulmonary: Denies: Shortness of Breath, Wheezing, Pleuritic Chest Pain, Cough, Sputum, Hemoptysis Cardiovascular: Denies: Chest Pain, Palpitations, Dyspnea on Exertion, Orthopnea, PND, Edema, Lightheadedness, Syncope Gastrointestinal: Reports: Anorexia, Decreased Appetite, Nausea, Vomiting. Denies: Abdominal Pain, Black Stool, Bloody Stool, Constipation, Diarrhea, Difficulty Swallowing, Distension, Flatus, Hematemesis, Hematochezia, Melena, Stool Incontinence Genitourinary: Denies: Dysuria, Frequency, Burning, Pain, Urgency, Incontinence, Hematuria, Discharge, Retention Musculoskeletal: Denies: Joint Pain, Joint Swelling, Muscle Pain, Muscle Stiffness Skin: Denies: Cyanosis, Jaundice, Mottled, Pallor, Diaphoresis Psychiatric: Denies: Confusion, Depression, Mood Lability, Anxiety, Agitation Neurological: Reports: Weakness. Denies: Dizziness, Headache, Numbness, Paresthesia, Pre-Existing Deficit, Seizure, Syncope, Tingling, Tremors, Trouble Speaking, Difficulty Walking, Change in Speech, Gait Disturbance Hematologic/Lymphatic: Denies: Easy Bleeding, Easy Bruising Exam - Exam Exam: See Below - Vital Signs Vital Signs: Last Vital Signs Temp 101.2 F H 12/26/19 04:50 Pulse 114 H 12/25/19 19:12 Resp 16 12/25/19 19:12 BP 118/57 L 12/25/19 19:12 Pulse Ox 96 12/25/19 19:12 Weight: 84.822 kg - Exam General: Alert, Oriented, Cooperative. No: Mild Distress, Moderate Distress, Severe Distress HEENT: Conjunctiva Clear, EACs Clear, EOMI, Nares Patent. No: Mucosa Moist & [place] (dry without lesions) Neck: Supple, Trachea Midline, +2 Carotid Pulse wo Bruit, Full Range of Motion. No: Lymphadenopathy Lungs: Clear to Auscultation, Normal Respiratory Effort. No: Decreased Breath Sounds, Crackles, Rales, Rhonchi, Rub, Stridor, Wheezing Cardiovascular: Regular Rate, Regular Rhythm. No: Systolic Murmur, Diastolic Murmur, Rubs, Gallop/S3, Gallop/S4 GI/Abdominal Exam: Normal Bowel Sounds, Soft, Non-Tender, No Organomegaly, Other (colostomy in LLQ with no stool in bag, ostomy without surrounding erythema). No: Distended, Guarding, Rigid, Rebound (Male) Exam: No Hernia, Other (suprapubic catheter without erythema on insertion site, there is some drainge around it, catheter draining yellow urine with some fragments) Extremities: Normal Inspection, Non-Tender, No Pedal Edema, Normal Capillary Refill Peripheral Pulses: 2+: Radial (L), Radial (R) Neuro Extensive - Mental Status: Oriented x3, Normal Mood/Affect, Normal Cognition Psychiatric: Normal Affect, Normal Mood - Patient Data Result Diagrams: 12/25/19 20:15 12/26/19 04:07 Sepsis Event Note - Evaluation Sepsis Screening Result: No Definite Risk - Problem List (1) Volume depletion SNOMED Code(s): 011834404 ICD Code: E86.9 - VOLUME DEPLETION, UNSPECIFIED Status: Acute Current Visit: Yes (2) Rectal fistula SNOMED Code(s): 85787543 ICD Code: K60.4 - RECTAL FISTULA Status: Acute Current Visit: Yes (3) Suprapubic catheter SNOMED Code(s): 620437583, 321480439 ICD Code: Z93.59 - OTHER CYSTOSTOMY STATUS Status: Acute Current Visit: Yes (4) Colostomy in place SNOMED Code(s): 865209825, 743707667 ICD Code: Z93.3 - COLOSTOMY STATUS Status: Acute Current Visit: Yes (5) Diabetes mellitus SNOMED Code(s): 60989157 ICD Code: E11.9 - TYPE 2 DIABETES MELLITUS WITHOUT COMPLICATIONS Status: Acute Current Visit: Yes (6) Chronic back pain SNOMED Code(s): 426975337 ICD Code: M54.9 - DORSALGIA, UNSPECIFIED; G89.29 - OTHER CHRONIC PAIN Status: Acute Current Visit: Yes (7) Generalized weakness SNOMED Code(s): 49453953 ICD Code: R53.1 - WEAKNESS Status: Acute Current Visit: Yes (8) UTI, Urinary tract infectious disease SNOMED Code(s): 13263539 ICD Code: N39.0 - URINARY TRACT INFECTION, SITE NOT SPECIFIED Status: Acute Current Visit: No (9) Acute kidney injury SNOMED Code(s): 77699281, 86190932 ICD Code: N17.9 - ACUTE KIDNEY FAILURE, UNSPECIFIED Status: Acute Current Visit: Yes (10) Tachycardia SNOMED Code(s): 4237037 ICD Code: R00.0 - TACHYCARDIA, UNSPECIFIED Status: Acute Current Visit: Y es (11) Hyponatremia SNOMED Code(s): 50047260 ICD Code: E87.1 - HYPO-OSMOLALITY AND HYPONATREMIA Status: Acute Current Visit: Yes (12) Chronic kidney disease SNOMED Code(s): 811984512 ICD Code: N18.9 - CHRONIC KIDNEY DISEASE, UNSPECIFIED Status: Acute Current Visit: Yes (13) Head trauma SNOMED Code(s): 80465070 ICD Code: S09.90XA - UNSPECIFIED INJURY OF HEAD, INITIAL ENCOUNTER Status: Acute Current Visit: Yes (14) Fall SNOMED Code(s): 6521651, 215644740 ICD Code: W19.XXXA - UNSPECIFIED FALL, INITIAL ENCOUNTER Status: Acute Current Visit: Yes Qualifiers: Encounter type: initial encounter Qualified Code(s): W19.XXXA - Unspecified fall, initial encounter Problem List Initiated/Reviewed/Updated: Yes Assessment/Plan Comment:: Volume depletion 2/2 GI loss and poor oral intake Hyponatremia Acute vs acute on chronic kidney disease Generalized weakness Fall at home with subsequent head trauma Vomiting multiple times between and Friday - Inability to tolerate PO - Decreased oral intake Fall from own height at home - NO LOC, dizziness, chest pain, palpitations, shortness of breath, AMS prior or after episodes - Fell on his head into bathtub - called son to help her get him up, moved him to bed where he rolled off again - Moved him to chair--> unable to get up after despite help from and son--> EMS was called - Upon EMS arrival patient was able to stand up and take a couple of small steps to gurney - CT head negative for acute findings Na on admission 125 with GFR of 34 - Latest labs available in chart from 2013 within normal limits - Denies any known Na or kidney problems PLAN - Serum and urine Na, Cr and osmolality - Orthostatic VS - PT/OT evaluation - Repeat labs in AM - Request records to compare prior blood work UTI, Urinary tract infectious disease Suprapubic catheter with rectal fistula 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 subsequent pr ostate cancer - s/p suprapubic catheter placement - 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 - s/p TURP - s/p colostomy placement Suprapubic system is exchanged 1/month--> due to change this Friday - Some foul smell and possible drainage from insertion site, no erythema UA from admission with multiples abnormalities including proteinuria, leukocyturia, + nitrites, moderate bacteria, amorphous sediment and triphosphate crystals - Sample obtained from prior system--> will start Rocephin in the meantime to cover UTI until confirmed - states he was set up fro abdominal CT to evaluate for nephrolithiasis due to "crystals seen in urine" PLAN - Exchange suprapubic catheter system - Culture of insertion site - New urinalysis - Start Rocephin - CT abdomen once kidney function improves Diabetes mellitus, unknown HbA1c Glucose on BMP 231 On sulfonylurea at home, not ideal for a patient his age PLAN - Glucose checks before meals and 2h after - Hypoglycemia protocol - Evaluate glucose trend in AM for need for insulin during admission - New HbA1c Active smoker Smokes 1ppd for the past 60 years PLAN - 21mg Nicotine patch PROPHYLAXIS: DVT- compression stockings GI- not indicated CODE STATUS: FULL CODE DISPOSITION: Patient will be admitted to medical floor for hyponatremia work up and management as well as confirmation of UTI and evaluation by PT/OT. SOCIAL: Is retired and Lives in [place] with Independent on ADLs prior to admission PCP- Silvano Gregorio MD - Mortality Measure Prognosis:: Good
[2019-12-26] MEDS ORDERED: Magnesium Sulfate/Water 4 GM in Premix Bag 1 BAG IV ONE (09:44)
[2019-12-26] MEDS: Nicotine 21 MG/24 Hr Patch TRDERM SCH (10:51)
[2019-12-26] MEDS: Potassium Chloride 20 MEQ Tab.ER PO SCH ×3 (11:57→21:43)
[2019-12-26] MEDS: cefTRIAXone 2 GM in Sodium Chloride 0.9% 100 ML IV SCH (11:57)
[2019-12-26] MEDS ORDERED: Sodium Chloride 0.9% 1,000 ML IV SCH (14:45)
[2019-12-26] MEDS: Sodium Chloride 0.9% 1,000 ML IV SCH (16:05)
[2019-12-26] MEDS: Sodium Bicarbonate 650 MG Tab PO SCH (21:42)
[2019-12-27] MEDS: Sodium Chloride 0.9% 1,000 ML IV SCH ×2 (02:44→14:04)
[2019-12-27] MEDS: Sodium Bicarbonate 650 MG Tab PO SCH (09:26)
[2019-12-27] MEDS: cefTRIAXone 2 GM in Sodium Chloride 0.9% 100 ML IV SCH (09:26)
[2019-12-27] MEDS: Nicotine 21 MG/24 Hr Patch TRDERM SCH (09:27)
[2019-12-27] MEDS ORDERED: Sodium Phosphate 30 MMOLE in Sodium Chloride 0.9% 250 ML IV ONE (10:30)
[2019-12-27] MEDS: Sodium Chloride 1 GM Tab PO SCH ×2 (10:59→14:48)
--- NOTE | 2019-12-27 11:26 | PCM.DCSUM1 ---
Discharge Summary - Hospital Course HPI Initial Comments: This is an 79-year-old male with past medical history of diabetes, suprapubic catheter and colostomy who comes to the ED brought by EMS by family after a fall. As per patient he had an episode 3 weeks ago when he hurt his back, after that his range of motion was decreased. 3 days ago he started having nausea with multiple episodes of vomiting for 48 hours with inability to tolerate PO. Yesterday patient went to the restroom to empty his urine container after which he fell into the bathtub and hit his head; he called his who came to try to get him up. was unable to do so for which she called their son who came to help. They were able to get patient up to his bed and while was helping him get comfortable he rolled of the bed and they both had to get him up again. At that time, they moved patient to his chair and later where unable to get him up as he couldn't hold himself up, it was at that time when they decided to call EMS. Once EMS arrived patient was able to stand up with 2 people assisting and took 2-3 steps [place]. Patient denies any fevers, chills, chest pain, shortness of breath, dizziness, headaches, loss of consciousness prior to fall but only lost his balance. Denies any prior falls, abdominal pain, distention, diarrhea, constipation. Does not drink enough water usually. Diagnosis: Stroke: No - Discharge Data Discharge Date: 12/27/19 Discharge Disposition: Home, Self-Care 01 Condition: Stable - Referral to Home Health Primary Care Physician: Silvano Gregorio MD - Discharge Diagnosis/Problem(s) (1) Volume depletion SNOMED Code(s): 066802628 ICD Code: E86.9 - VOLUME DEPLETION, UNSPECIFIED Status: Acute Current Visit: Yes (2) Rectal fistula SNOMED Code(s): 33039920 ICD Code: K60.4 - RECTAL FISTULA Status: Acute Current Visit: Yes (3) Suprapubic catheter SNOMED Code(s): 937423008, 005001002 ICD Code: Z93.59 - OTHER CYSTOSTOMY STATUS Status: Acute Current Visit: Yes (4) Colostomy in place SNOMED Code(s): 767405758, 335258933 ICD Code: Z93.3 - COLOSTOMY STATUS Status: Acute Current Visit: Yes (5) Diabetes mellitus SNOMED Code(s): 10165701 ICD Code: E11.9 - TYPE 2 DIABETES MELLITUS WITHOUT COMPLICATIONS Status: Acute Current Visit: Yes (6) Chronic back pain SNOMED Code(s): 221426949 ICD Code: M54.9 - DORSALGIA, UNSPECIFIED; G89.29 - OTHER CHRONIC PAIN Status: Acute Current Visit: Yes (7) Generalized weakness SNOMED Code(s): 78395649 ICD Code: R53.1 - WEAKNESS Status: Acute Current Visit: Yes (8) UTI, Urinary tract infectious disease SNOMED Code(s): 51261119 ICD Code: N39.0 - URINARY TRACT INFECTION, SITE NOT SPECIFIED Status: Acute Current Visit: No (9) Acute kidney injury SNOMED Code(s): 42560579, 08824330 ICD Code: N17.9 - ACUTE KIDNEY FAILURE, UNSPECIFIED Status: Acute Current Visit: Yes (10) Tachycardia SNOMED Code(s): 4864011 ICD Code: R00.0 - TACHYCARDIA, UNSPECIFIED Status: Acute Current Visit: Yes (11) Hyponatremia SNOMED Code(s): 24241071 ICD Code: E87.1 - HYPO-OSMOLALITY AND HYPONATREMIA Status: Acute Current Visit: Yes (12) Chronic kidney disease SNOMED Code(s): 800524486 ICD Code: N18.9 - CHRONIC KIDNEY DISEASE, UNSPECIFIED Status: Acute Current Visit: Yes (13) Head trauma SNOMED Code(s): 35826206 ICD Code: S09.90XA - UNSPECIFIED INJURY OF HEAD, INITIAL ENCOUNTER Status: Acute Current Visit: Yes (14) Fall SNOMED Code(s): 7824533, 576793864 ICD Code: W19.XXXA - UNSPECIFIED FALL, INITIAL ENCOUNTER Status: Acute Current Visit: Yes Qualifiers: Encounter type: initial encounter Qualified Code(s): W19.XXXA - Unspecified fall, initial encounter (15) Hypophosphatemia SNOMED Code(s): 5401798 ICD Code: E83.39 - OTHER DISORDERS OF PHOSPHORUS METABOLISM Status: Acute Current Visit: Yes - Patient Summary/Data Consults: Consultations 12/27/19 08:51 Consult to Occupational Therapy [OT Evaluation and Treatment] [CONS] Routine Consult to Physical Therapy [PT Evaluation and Treatment] [CONS] Routine Labs Pending at D/C: Microbiology - Urine culture finalization - Suprapubic catheter insertion site culture - Blood cultures HbA1c Hospital Course: ADMISSION Vomiting multiple times between and Friday - Inability to tolerate PO - Decreased oral intake - Orthostatic Fall from own height at home - NO LOC, dizziness, chest pain, palpitations, shortness of breath, AMS prior or after episodes - Fell on his head into bathtub - called son to help her get him up, moved him to bed where he rolled off again - Moved him to chair--> unable to get up after despite help from and son--> EMS was called - Upon EMS arrival patient was able to stand up and take a couple of small steps to [facility] - CT head negative for acute findings Na on admission 125 with GFR of 34 - Latest labs available in chart from 2013 within normal limits - Denies any known Na or kidney problems History of transitional cell bladder cancer with recurrence and subsequent prostate cancer - s/p suprapubic catheter placement - 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 - s/p TURP - s/p colostomy placement Suprapubic system is exchanged 1/month--> due to change this Friday - Some foul smell and possible drainage from insertion site, no erythema UA from admission with multiples abnormalities including proteinuria, leukocyturia, + nitrites, moderate bacteria, amorphous sediment and triphosphate crystals - Sample obtained from prior system--> will start Rocephin in the meantime to cover UTI until confirmed - states he was set up fro abdominal CT to evaluate for nephrolithiasis due to "crystals seen in urine" On sulfonylurea at home, not ideal for a patient his age Smokes 1ppd for the past 60 years PLAN ON ADMISSION - Exchange suprapubic catheter system - Culture of insertion site - Start Rocephin - Nicotine patch ordered but patient refused 12/27/2019 Tolerated diet, slept through the night New lab results - Na up to 131 - GFR up to 42 - Magnesium up to 2.1 - PO4 down to 2.1 Replaced NaPO4 30Mmol and 2 Na tablets Changed Rocephin for Keflex - Urine culture growing gram negative rods - Wound culture pending - Blood cultures negative Vital signs - Afebrile since 5AM on 12/25 - BP trend 93-130/45-77 - HR trend 83-110 Adequate urine output of 1,350 Discharged to follow up with PCP for new blood work to complete 7 days of antibiotic therapy - Patient Instructions Diet: Heart Healthy Diet Activity: As Tolerated - Discharge Plan *PRESCRIPTION DRUG MONITORING PROGRAM REVIEWED*: Not Applicable *COPY OF PRESCRIPTION DRUG MONITORING REPORT IN PATIENT KYLE: Not Applicable Prescriptions/Med Rec: cephALEXin [Keflex] 500 mg PO Q8H #15 cap Home Medications: Home Meds Bicalutamide [Casodex] 50 mg PO DAILY 03/21/15 [History] Leuprolide Acetate [Lupron Depot] 1 dose IM ASDIRECTED 03/21/15 [History] Simvastatin [Zocor] 40 mg PO DAILY 03/21/15 [History] Chlorthalidone 12.5 mg PO DAILY 12/26/19 [History] Non-Formulary Medication [NF Drug] 1 applic TOP Q6H PRN 12/26/19 [History] Sodium Bicarbonate 1 tab PO BID 12/26/19 [History] cephALEXin [Keflex] 500 mg PO Q8H #15 cap 12/27/19 [Rx] Oxygen Therapy Mode: Room Air Patient Handouts: Indwelling Urinary Catheter Care, Adult, Colostomy Home Guide, Adult, Fluid Restriction, Sodium Test, Urinary Tract Infection, Adult, Low-Sodium Eating Plan, Sepsis, Self Care, Adult, Suprapubic Catheter Home Guide Referrals: Silvano Gregorio MD [Primary Care Provider] - - Discharge Summary/Plan Comment DC Time >30 min.: Yes - General Info Date of Service: 12/27/19 Subjective Update: Slept through the night Tolerating diet No complaints - Patient Data Vitals - Most Recent: Last Vital Signs Temp 97.9 F 12/27/19 09:16 Pulse 92 12/27/19 09:16 Resp 16 12/27/19 09:16 BP 107/61 12/27/19 09:16 Pulse Ox 99 12/27/19 09:16 Orthostatic Blood Pressure [ 94/48 Standing] Orthostatic Blood Pressure [ 96/66 Sitting] Orthostatic Blood Pressure [ 112/56 Supine] Weight - Most Recent: 86.772 kg - Exam General: Reports: Alert, Oriented, Cooperative, No Acute Distress HEENT: Reports: Pupils Equal, Pupils Reactive, EOMI, Mucous Membr. Moist/[place] Neck: Reports: Supple, Trachea Midline, No JVD, No Thyromegaly, +2 Carotid Pulse wo Bruit. Denies: Lymphadenopathy Lungs: Reports: Clear to Auscultation, Normal Respiratory Effort. Denies: Decreased Breath Sounds, Crackles, Rales, Rhonchi, Rub, Stridor, Wheezing Cardiovascular: Reports: Regular Rate, Regular Rhythm. Denies: Murmurs, Gallops, Rubs GI/Abdominal Exam: Normal Bowel Sounds, Soft, Non-Tender, Other (colostomy in place, suprapubic catheter in place-permeable) Back Exam: Reports: Normal Inspection Extremities: Normal Inspection, Normal Range of Motion, Non-Tender, No Pedal Edema, Normal Capillary Refill Skin: Reports: Warm, Dry, Intact Wound/Incisions: Reports: Healing Well Neurological: Reports: No New Focal Deficit Psy/Mental Status: Reports: Normal Affect, Normal Mood
[2019-12-27 11:52] LABS: HEMOGLOBIN A1C 6.3 % (4.50-6.20)
[2019-12-27 19:38] VITALS: BP 138/70; PULSE 87
[2019-12-28] MEDS ORDERED: Cephalexin 500 MG Cap PO SCH (07:00)
== END 2019-12-27 16:47 | disposition home or self-care (01) | DRG 699 ==
LOC: JD.ED 18:59 → SUPCPDRO 18:59 → JD.MS 12-26 02:26
PROVIDERS: ADMIT Internal Medicine; ATTEND Internal Medicine
DX: T83.510A Infection and inflammatory reaction due to cystostomy catheter, initial encounter (principal); N17.9 Acute kidney failure, unspecified; N39.0 Urinary tract infection, site not specified; E87.1 Hypo-osmolality and hyponatremia; K60.4 Rectal fistula; G89.29 Other chronic pain; M54.9 Dorsalgia, unspecified; N18.9 Chronic kidney disease, unspecified; S09.90XA Unspecified injury of head, initial encounter; W19.XXXA Unspecified fall, initial encounter; E83.39 Other disorders of phosphorus metabolism; Z20.828 Contact with and (suspected) exposure to other viral communicable diseases; E11.22 Type 2 diabetes mellitus with diabetic chronic kidney disease; H54.7 Unspecified visual loss; F17.210 Nicotine dependence, cigarettes, uncomplicated; Y92.009 Unspecified place in unspecified non-institutional (private) residence as the place of occurrence of the external cause; Z93.59 Other cystostomy status; Z93.3 Colostomy status; Z85.51 Personal history of malignant neoplasm of bladder; Z79.899 Other long term (current) drug therapy
CPT/HCPCS: 36415; 51702; 70450; 70450-26; 80048; 80053; 81001; 82570; 82728; 83036; 83605; 83615; 83735; 84100; 84300; 85025; 85379; 87040; 87070; 87077; 87086; 87088; 87181; 87184; 87186; 96360; 96361; 97162-GP; 97165-GO; 99222; 99239; 99285; 99285-25; A9270-GY; J0696; J3475; J7030; J7050; J7120; U0002

== ENCOUNTER 2020-03-23 00:58 | Emergency (ER) | payer MEDICARE, BC ==
[2020-03-23] MEDS ORDERED: Lidocaine 2% Jelly 10 ML Urojet ONE (01:09)
[2020-03-23 01:12] VITALS: BP 141/88; PULSE 101
== END 2020-03-23 01:29 | disposition home or self-care (01) ==
LOC: JD.ED 00:58
DX: Z46.6 Encounter for fitting and adjustment of urinary device (principal)
CPT/HCPCS: 99283

== ENCOUNTER 2020-04-04 21:32 | Emergency (ER) | payer MEDICARE, BC ==
[2020-04-04 21:48] VITALS: BP 159/67; PULSE 107
--- NOTE | 2020-04-04 21:59 | EDM.PDOC ---
ED HPI GENERAL MEDICAL PROBLEM - General Chief Complaint: Genitourinary Problem Stated Complaint: CATH CAME OUT Time Seen by Provider: 04/04/20 21:37 Source of Information: Reports: Patient History Limitations: Reports: No Limitations - History of Present Illness INITIAL COMMENTS - FREE TEXT/NARRATIVE: Patient is an 79-year-old male presenting to the emergency department after his suprapubic catheter fell out. He is unsure approximately how long ago it was, but states he has been leaking urine through his penis. He states that the balloon and the catheter broke. He has a chronic suprapubic catheter - Related Data Allergies Allergy/AdvReac Type Severity Reaction Status Date / Time No Known Allergies Allergy Verified 04/04/20 21:48 Home Meds: Home Meds Bicalutamide [Casodex] 50 mg PO DAILY 03/21/15 [History] Leuprolide Acetate [Lupron Depot] 1 dose IM ASDIRECTED 03/21/15 [History] Simvastatin [Zocor] 40 mg PO DAILY 03/21/15 [History] Chlorthalidone 12.5 mg PO DAILY 12/26/19 [History] Non-Formulary Medication [NF Drug] 1 applic TOP Q6H PRN 12/26/19 [History] Sodium Bicarbonate 1 tab PO BID 12/26/19 [History] cephALEXin [Keflex] 500 mg PO Q8H #15 cap 12/27/19 [Rx] Past Medical History HEENT History: Reports: None, Impaired Vision Other HEENT History: reading glasses Other Gastrointestinal History: currently having rectal bleeding Genitourinary History: Reports: Other (See Below) Other Genitourinary History: Suprapubic cath for CA of bladder and complications from treatment Other Musculoskeletal History: chronic leg pain Endocrine/Metabolic History: Reports: Diabetes, Type II Oncologic (Cancer) History: Reports: Metastatic Other Oncologic History: transitional cell bladder cancer - Past Surgical History GI Surgical History: Reports: Colostomy Male Surgical History: Reports: Lithotripsy ([facility]), Prostatectomy, Suprapubic Catheter Placement, TURP-Transurethral Resection of Prostate Social & Family History - Family History Family Medical History: Noncontributory - Tobacco Use Tobacco Use Status *Q: Current Every Day Tobacco User Years of Tobacco use: 60 Packs/Tins Daily: 0.5 Used Tobacco, but Quit: No - Caffeine Use Caffeine Use: Reports: Coffee Other Caffeine Use: unknown - Recreational Drug Use Recreational Drug Use: No - Living Situation & Occupation Living situation: Reports: Occupation: Retired ED ROS GENERAL - Review of Systems Review Of Systems: Comprehensive ROS is negative, except as noted in HPI. ED EXAM, RENAL/ - Physical Exam Exam: See Below General Appearance: Alert, WD/WN, No Apparent Distress Respiratory/Chest: No Respiratory Distress, Lungs Clear, Normal Breath Sounds, No Accessory Muscle Use, Chest Non-Tender Cardiovascular: Normal Peripheral Pulses, Regular Rate, Rhythm, No Edema, No Gallop, No JVD, No Murmur, No Rub GI/Abdominal: Normal Bowel Sounds, Soft, Non-Tender, No Organomegaly, No Distention, No Abnormal Bruit, No Mass (Male) Exam: Other (Well-healed suprapubic catheter site. No redness or drainage.) Neurological: Alert, Oriented, CN II-XII Intact, Normal Cognition, Normal Gait, Normal Reflexes, No Motor/Sensory Deficits Psychiatric: Normal Affect, Normal Mood Skin Exam: Warm, Dry, Intact, Normal Color, No Rash Course - Vital Signs Last Recorded V/S: Last Vital Signs Temp 96.9 F 04/04/20 21:45 Pulse 107 H 04/04/20 21:45 Resp 18 04/04/20 21:45 BP 159/67 H 04/04/20 21:45 Pulse Ox 98 04/04/20 21:45 - Re-Assessments/Exams Free Text/Narrative Re-Assessment/Exam: Patient is an 79-year-old male presenting to the emergency department with complaints of his suprapubic catheter falling out. On exam, the balloon broke. He did a 14 Barbadian catheter in, however states he normally uses a 16 Barbadian catheter. We were able to easily insert a 16 Barbadian catheter using sterile technique. There was a scant amount of bleeding to the suprapubic site. Clear yellow urine was returned. We will discharge him home. Discharge instructions as documented. Departure - Departure Time of Disposition: 21:58 Disposition: Home, Self-Care 01 Condition: Good Clinical Impression: Suprapubic catheter dysfunction Qualifiers: Encounter type: initial encounter Qualified Code(s): T83.010A - Breakdown (mechanical) of cystostomy catheter, initial encounter - Discharge Information *PRESCRIPTION DRUG MONITORING PROGRAM REVIEWED*: No *COPY OF PRESCRIPTION DRUG MONITORING REPORT IN PATIENT KYLE: No Instructions: Suprapubic Catheter Replacement Referrals: Silvano Gregorio MD [Primary Care Provider] - Additional Instructions: You were seen in the emergency department this evening after your suprapubic catheter fell out. A 16 Barbadian catheter was reinserted and it yielded clear yellow urine. Continue with your catheter cares per usual. Return to ER as needed. Sepsis Event Note (ED) - Evaluation Sepsis Screening Result: No Definite Risk - Focused Exam Vital Signs: Vital Signs Temp Pulse Resp BP Pulse Ox 04/04/20 21:45 96.9 F 107 H 18 159/67 H 98
== END 2020-04-04 22:10 | disposition home or self-care (01) ==
LOC: JD.ED 21:32
DX: T83.010A Breakdown (mechanical) of cystostomy catheter, initial encounter (principal)
CPT/HCPCS: 51102; 51705; 99283

== ENCOUNTER 2020-06-17 19:25 | Emergency (ER) | payer MEDICARE, BC ==
[2020-06-17 19:35] VITALS: BP 182/84; PULSE 100
--- NOTE | 2020-06-17 19:57 | EDM.PDOC ---
ED HPI GENERAL MEDICAL PROBLEM - General Chief Complaint: Genitourinary Problem Stated Complaint: CATH COMPLICATIONS Time Seen by Provider: 06/17/20 19:36 Source of Information: Reports: Patient History Limitations: Reports: No Limitations - History of Present Illness INITIAL COMMENTS - FREE TEXT/NARRATIVE: Mr. Irene is a very pleasant 79-year-old gentleman with a past medical history significant for both bladder cancer and prostate cancer status post surgical resection and radiation therapy, with subsequent damage to his bladder and colon, requiring a suprapubic catheter since early 2017 and a colostomy, who now presents to the ED stating that the balloon to his suprapubic catheter, placed 05/29/2020, burst sonja, causing her to fall out. He has no pain. He states that he simply needs to have a new catheter placed. Here in the ED, the patient's initial BP is found to be elevated at 182/84, otherwise, he is hemodynamically stable, afebrile, saturating 100% on room air. Other than sonja's suprapubic catheter issue, the patient denies having a recent fever, chills, sore throat, ear pain, nasal or sinus congestion, cough, dyspnea, chest pain, palpitations, nausea, vomiting, constipation, diarrhea, abdominal pain, urinary symptoms, recent weight gain or weight loss, recent bloody bowel movements or black bowel movements, recent joint aches, headaches, or rashes. The patient's PCP is Dr. Silvano Gregorio. His Urologist is Dr. Wesley Patel. He states that he already received an influenza vaccine this season. - Related Data Allergies Allergy/AdvReac Type Severity Reaction Status Date / Time No Known Allergies Allergy Verified 06/17/20 19:40 Home Meds: Home Meds Bicalutamide [Casodex] 50 mg PO DAILY 03/21/15 [History] Leuprolide Acetate [Lupron Depot] 1 dose IM ASDIRECTED 03/21/15 [History] Simvastatin [Zocor] 40 mg PO DAILY 03/21/15 [History] Chlorthalidone 12.5 mg PO DAILY 12/26/19 [History] Non-Formulary Medication [NF Drug] 1 applic TOP Q6H PRN 12/26/19 [History] Sodium Bicarbonate 1 tab PO BID 12/26/19 [History] Past Medical History HEENT History: Reports: Impaired Vision Genitourinary History: Reports: Retention, Urinary (s/p suprapubic catheter) Endocrine/Metabolic History: Reports: Diabetes, Type II Oncologic (Cancer) History: Reports: Bladder (transitional cell), Prostate - Past Surgical History GI Surgical History: Reports: Colon (hemicolectomy), Colostomy Male Surgical History: Reports: Suprapubic Catheter Placement (sarah 2018) Oncologic Surgical History: Reports: Other (See Below) (Prostatectomy) Social & Family History - Tobacco Use Tobacco Use Status *Q: Current Every Day Tobacco User Years of Tobacco use: 60 Packs/Tins Daily: 0.5 Packs/Tins Daily Comment: Down from >1 ppd - Caffeine Use Caffeine Use: Reports: Coffee Other Caffeine Use: unknown - Alcohol Use Alcohol Use History: Yes Alcohol Use Frequency: Rarely - Recreational Drug Use Recreational Drug Use: Yes Drug Use in Last 12 Months: No Recreational Drug Type: Reports: Marijuana/Hashish (last smoked around 1961) - Living Situation & Occupation Living situation: Reports: , with Spouse Occupation: Retired ED ROS GENERAL - Review of Systems Review Of Systems: Comprehensive ROS is negative, except as noted in HPI. ED EXAM, RENAL/ - Physical Exam Exam: See Below Exam Limited By: No Limitations General Appearance: Alert, WD/WN, No Apparent Distress Eye Exam: Bilateral Eye: EOMI, Normal Inspection Ears: Normal External Exam, Hearing Grossly Normal Nose: Normal Inspection Throat/Mouth: Normal Inspection, Normal Lips, Normal Voice, No Airway Compromise Head: Atraumatic, Normocephalic Neck: Normal Inspection, Full Range of Motion Respiratory/Chest: No Respiratory Distress, Lungs Clear, Normal Breath Sounds, No Accessory Muscle Use Cardiovascular: Normal Peripheral Pulses, Regular Rate, Rhythm, No Gallop, No JVD, No Murmur, No Rub GI/Abdominal: Normal Bowel Sounds, Soft, Non-Tender, No Organomegaly, No Distention, No Abnormal Bruit, No Mass, Other (Colostomy site LLQ C/D/I) (Male) Exam: Other (Suprapubic catheter stoma site C/D/I) Back Exam: Normal Inspection, Full Range of Motion, NT Extremities: Normal Inspection, Normal Range of Motion, Normal Capillary Refill Neurological: Alert, Oriented, Normal Cognition, No Motor/Sensory Deficits Psychiatric: Normal Affect Skin Exam: Warm, Dry, Intact, Normal Color, No Rash ED PROCEDURES - Suprapubic Catheter Insertion Consent Obtained: Reports: Patient Performed by:: Oli Farah Prep: Reports: Chlorhexidine Urine Description: Reports: Clear Complications:: No Course - Vital Signs Last Recorded V/S: Last Vital Signs Temp 36.6 C 06/17/20 19:33 Pulse 100 06/17/20 19:33 Resp 16 06/17/20 19:33 BP 182/84 H 06/17/20 19:33 Pulse Ox 100 06/17/20 19:33 - Re-Assessments/Exams Free Text/Narrative Re-Assessment/Exam: 06/17/20 19:52 As above, the balloon to the patient's 16 Fr suprapubic catheter burst earlier tonight, causing it to fall out. After evaluating the patient, I replaced the catheter with a new 16 Fr Cristina catheter by first cleaning the stoma site with chlorhexidine, lubricating the catheter, and inserting it into the stoma. The balloon was then filled with 10 cc of saline per Dinora EVANS, securing the catheter. The catheter was then attached to the patient's own leg bag, with urine output, confirming proper location. I will discharge him home. Departure - Departure Time of Disposition: 19:55 Disposition: Home, Self-Care 01 Condition: Good Clinical Impression: Suprapubic catheter dysfunction - Discharge Information *PRESCRIPTION DRUG MONITORING PROGRAM REVIEWED*: Not Applicable *COPY OF PRESCRIPTION DRUG MONITORING REPORT IN PATIENT KYLE: Not Applicable Instructions: Suprapubic Catheter Replacement Referrals: Silvano Gregorio MD [Primary Care Provider] - Wesley Patel MD [Ordering Only Provider] - Forms: ED Department Discharge Additional Instructions: You were seen in the emergency room after the balloon to your suprapubic catheter burst, causing it to fall out. The catheter was replaced with a new 16 Estonian catheter in the ER. Continue to manage your catheter as you ordinarily do. If any other problems, please do not hesitate to return to the ER. Sepsis Event Note (ED) - Evaluation Sepsis Screening Result: No Definite Risk - Focused Exam Vital Signs: Vital Signs Temp Pulse Resp BP Pulse Ox 06/17/20 19:33 36.6 C 100 16 182/84 H 100
== END 2020-06-17 20:13 | disposition home or self-care (01) ==
LOC: JD.ED 19:25
DX: T83.090A Other mechanical complication of cystostomy catheter, initial encounter (principal); E11.9 Type 2 diabetes mellitus without complications; Z79.899 Other long term (current) drug therapy; Z72.0 Tobacco use
CPT/HCPCS: 51102; 51702; 99282; 99283-25

== ENCOUNTER 2020-09-28 15:25 | Inpatient (IN) | payer MEDICARE, BC ==
[2020-09-28] MEDS ORDERED: Sodium Chloride 0.9% 10 ML Syringe FLUSH PRN (15:36)
[2020-09-28] MEDS ORDERED: Sodium Chloride 0.9% 1,000 ML IV STA (16:06)
--- NOTE | 2020-09-28 16:07 | EDM.PDOC ---
ED HPI GENERAL MEDICAL PROBLEM - General Chief Complaint: General Stated Complaint: WEAKNESS AND FATIGUE Time Seen by Provider: 09/28/20 15:30 Source of Information: Reports: Patient, Family, RN Notes Reviewed History Limitations: Reports: No Limitations - History of Present Illness INITIAL COMMENTS - FREE TEXT/NARRATIVE: Patient is an 80-year-old male presenting to the emergency department with complaints of generalized weakness and fatigue for the past 2 days. He states a few days ago he had a mild cough but that is since resolved. He denies any nausea, vomiting, or diarrhea. He has no chest pain or shortness of breath. He does have a suprapubic catheter due to a history of bladder cancer. He denies any known fevers at home, however temperature in triage was 100.1. He does have a history of urosepsis. states he was at 1 time hospitalized for 22 days for this. He is also tachycardic at 116. - Related Data Allergies Allergy/AdvReac Type Severity Reaction Status Date / Time No Known Allergies Allergy Verified 09/28/20 15:36 Home Meds: Home Meds Bicalutamide [Casodex] 50 mg PO DAILY 03/21/15 [History] Leuprolide Acetate [Lupron Depot] 1 dose IM ASDIRECTED 03/21/15 [History] Simvastatin [Zocor] 40 mg PO DAILY 03/21/15 [History] Chlorthalidone 12.5 mg PO DAILY 12/26/19 [History] Non-Formulary Medication [NF Drug] 1 applic TOP Q6H PRN 12/26/19 [History] Sodium Bicarbonate 650 mg PO BID 12/26/19 [History] Glimepiride 1 mg PO DAILY 09/28/20 [History] Past Medical History HEENT History: Reports: Cataract, Impaired Vision Other HEENT History: reading glasses Cardiovascular History: Reports: High Cholesterol Other Gastrointestinal History: currently having rectal bleeding Genitourinary History: Reports: Retention, Urinary Other Genitourinary History: Suprapubic cath for CA of bladder and complications from treatment Other Musculoskeletal History: chronic leg pain Endocrine/Metabolic History: Reports: Diabetes, Type II Immunologic History: Reports: Immunosuppression Oncologic (Cancer) History: Reports: Bladder, Prostate Other Oncologic History: transitional cell bladder cancer - Past Surgical History HEENT Surgical History: Reports: Cataract Surgery GI Surgical History: Reports: Colon, Colostomy Male Surgical History: Reports: Suprapubic Catheter Placement Other Male Surgeries/Procedures: prostatectomy, TURP, calculous of bladder, diverticulum of bladder Oncologic Surgical History: Reports: Other (See Below) Social & Family History - Family History Family Medical History: No Pertinent Family History - Tobacco Use Tobacco Use Status *Q: Current Every Day Tobacco User Years of Tobacco use: 60 Packs/Tins Daily: 1 - Caffeine Use Caffeine Use: Reports: Coffee Other Caffeine Use: unknown - Recreational Drug Use Recreational Drug Use: No - Living Situation & Occupation Living situation: Reports: , with Spouse Occupation: Retired ED ROS GENERAL - Review of Systems Review Of Systems: See Below Constitutional: Reports: Weakness, Fatigue. Denies: Fever, Chills HEENT: Reports: No Symptoms Respiratory: Reports: No Symptoms. Denies: Shortness of Breath, Cough Cardiovascular: Reports: No Symptoms. Denies: Chest Pain, Palpitations Endocrine: Reports: No Symptoms GI/Abdominal: Reports: No Symptoms. Denies: Abdominal Pain, Diarrhea, Nausea, Vomiting : Reports: No Symptoms Musculoskeletal: Reports: No Symptoms Skin: Reports: No Symptoms Neurological: Reports: No Symptoms Psychiatric: Reports: No Symptoms Hematologic/Lymphatic: Reports: No Symptoms Immunologic: Reports: No Symptoms ED EXAM, GENERAL - Physical Exam Exam: See Below General Appearance: Alert, WD/WN, No Apparent Distress Respiratory/Chest: No Respiratory Distress, Lungs Clear, Normal Breath Sounds, No Accessory Muscle Use, Chest Non-Tender Cardiovascular: Normal Peripheral Pulses, Regular Rate, Rhythm, No Edema, No Gallop, No JVD, No Murmur, No Rub GI/Abdominal: Normal Bowel Sounds, Soft, Non-Tender, No Organomegaly, No Distention, No Abnormal Bruit, No Mass, Other (ostomy to left abdomen. Suprapubic catheter.) Back Exam: Normal Inspection, Full Range of Motion. No: CVA Tenderness (L), CVA Tenderness (R) Neurological: Alert, Oriented, CN II-XII Intact, Normal Cognition, Normal Gait, Normal Reflexes, No Motor/Sensory Deficits Psychiatric: Normal Affect, Normal Mood Skin Exam: Warm, Dry, Intact, Normal Color, No Rash Course - Vital Signs Last Recorded V/S: Last Vital Signs Temp 99.5 F 09/28/20 19:30 Pulse 96 09/28/20 19:30 Resp 17 04/29/21 19:30 BP 138/54 L 09/28/20 19:30 Pulse Ox 97 09/28/20 19:30 - Orders/Labs/Meds Orders: Active Orders 24 hr Category Date Time Status CULTURE BLOOD [BC] Stat Lab 09/28/20 15:55 Received CULTURE BLOOD [BC] Stat Lab 09/28/20 16:02 Received CULTURE URINE [RM] Stat Lab 09/28/20 17:40 Received Sodium Chloride 0.9% [Normal Saline] 1,000 ml Med 09/28/20 16:06 Active IV NOW Sodium Chloride 0.9% [Saline Flush] Med 09/28/20 15:36 Active 10 ml FLUSH ASDIRECTED PRN Blood Culture x2 Reflex Set [OM.PC] Stat Oth 09/28/20 15:36 Ordered Saline Lock Insert [OM.PC] Stat Ot 09/28/20 15:36 Ordered Medication Orders Acetaminophen (Acetaminophen 325 Mg Tab) 650 mg PO Q6H PRN PRN Reason: Pain (Mild 1-3)/fever Albuterol/Ipratropium (Albuterol/Ipratropium 3.0-0.5 Mg/3 Ml Neb Soln) 3 ml NEB Q4H PRN PRN Reason: Shortness Of Breath/wheezing Chlorthalidone (Chlorthalidone 25 Mg Tab) 12.5 mg PO DAILY PHILL Docusate Sodium (Docusate Sodium 100 Mg Cap) 100 mg PO BID PRN PRN Reason: Constipation Heparin Sodium (Porcine) (Heparin Sodium 5,000 Units/Ml Vial) 5,000 units SUBCUT Q8HR [facility] Last Admin: 09/28/20 19:57 Dose: 5,000 units Documented by: TOBIAS Hydralazine HCl (Hydralazine 20 Mg/Ml Sdv) 10 mg IVPUSH Q4H PRN PRN Reason: Hypertension Sodium Chloride (Normal Saline) 1,000 mls @ 150 mls/hr IV NOW STA Stop: 09/28/20 22:45 Last Admin: 09/28/20 17:20 Dose: 150 mls/hr Documented by: LARA Lactated Ringer's (Ringers, Lactated) 1,000 mls @ 80 mls/hr IV ASDIRECTED PHILL Promethazine HCl 12.5 mg/ (Sodium Chloride) 50.5 mls @ 100 mls/hr IV Q6H PRN PRN Reason: Nausea/Vomiting Ceftriaxone Sodium 1 gm/ (Sodium Chloride) 100 mls @ 200 mls/hr IV Q24H PHILL Sodium Chloride (Normal Saline) 500 mls @ 200 mls/hr IV .BOLUS ONE Stop: 09/28/20 21:44 Insulin Human Lispro (Insulin Lispro 100 Units/Ml 3 Ml Vial) 0 unit SUBCUT QIDACANDBED PHILL; Protocol Morphine Sulfate (Morphine 2 Mg/Ml Syringe) 2 mg IVPUSH Q4H PRN PRN Reason: Pain (severe 7-10) Stop: 09/29/20 18:45 Non-Formulary Medication (Leuprolide Acetate) 1 dose IM ASDIRECTED PHILL Simvastatin (Simvastatin 40 Mg Tab) 40 mg PO DAILY PHILL Sodium Bicarbonate (Sodium Bicarbonate 650 Mg Tab) 650 mg PO BID [facility] Sodium Chloride (Sodium Chloride 0.9% 10 Ml Syringe) 10 ml FLUSH ASDIRECTED PRN PRN Reason: Keep Vein Open Last Admin: 09/28/20 16:00 Dose: 10 ml Documented by: LARA Labs: Laboratory Tests 09/28/20 09/28/20 09/28/20 Range/Units 15:55 15:55 15:55 WBC 14.71 H (4.23-9.07) K/mm3 RBC 3.78 L (4.63-6.08) M/mm3 Hgb 11.0 L (13.7-17.5) gm/dl Hct 34.0 L (40.1-51.0) % MCV 89.9 (79.0-92.2) fl MCH 29.1 (25.7-32.2) pg MCHC 32.4 (32.2-35.5) g/dl RDW Std Deviation 43.7 (35.1-43.9) fL Plt Count 283 D (163-337) K/mm3 MPV 9.6 (9.4-12.3) fl Neutrophils % (Manual) 84 H (40-60) % Band Neutrophils % 0 (0-10) % Lymphocytes % (Manual) 7 L (20-40) % Atypical Lymphs % 0 % Monocytes % (Manual) 9 (2-10) % Eosinophils % (Manual) 0 L (0.8-7.0) % Basophils % (Manual) 0 L (0.2-1.2) Toxic Granulation Few Platelet Estimate Adequate Poikilocytosis 1+ slight Ovalocytes 1+ slight RBC Morph Comment Normal PT 10.8 (9.7-12.0) SECONDS INR 1.01 Sodium 132 L (136-145) mEq/L Potassium 4.1 (3.5-5.1) mEq/L Chloride 95 L (98-107) mEq/L Carbon Dioxide 23 (21-32) mEq/L Anion Gap 18.1 H (5-15) BUN 34 H (7-18) mg/dL Creatinine 2.1 H (0.7-1.3) mg/dL Est Cr Clr Drug Dosing 29.38 mL/min Estimated GFR (MDRD) 30 (>60) mL/min BUN/Creatinine Ratio 16.2 (14-18) Glucose 128 H (83-115) mg/dL Lactic Acid (0.4-2.0) mmol/L Calcium 8.9 (8.5-10.1) mg/dL Total Bilirubin 0.5 (0.2-1.0) mg/dL AST 16 (15-37) U/L ALT 17 (16-63) U/L Alkaline Phosphatase 95 (46-116) U/L C-Reactive Protein 21.3 H* (<1.0) mg/dL Total Protein 8.0 (6.4-8.2) g/dl Albumin 3.2 L (3.4-5.0) g/dl Globulin 4.8 gm/dL Albumin/Globulin Ratio 0.7 L (1-2) Urine Color (Yellow) Urine Appearance (Clear) Urine pH (5.0-8.0) Ur Specific [place] (1.005-1.030) Urine Protein (Negative) Urine Glucose (UA) (Negative) Urine Ketones (Negative) Urine Occult Blood (Negative) Urine Nitrite (Negative) Urine Bilirubin (Negative) Urine Urobilinogen (0.2-1.0) Ur Leukocyte Esterase (Negative) Urine RBC (0-5) /hpf Urine WBC (0-5) /hpf Ur Squamous Epith Cells (0-5) /hpf Urine Bacteria (FEW) /hpf Urine Mucus (FEW) /hpf SARS-CoV-2 RNA (MELA) (NEGATIVE) 09/28/20 09/28/20 09/28/20 Range/Units 15:55 15:55 17:40 WBC (4.23-9.07) K/mm3 RBC (4.63-6.08) M/mm3 Hgb (13.7-17.5) gm/dl Hct (40.1-51.0) % MCV (79.0-92.2) fl MCH (25.7-32.2) pg MCHC (32.2-35.5) g/dl RDW Std Deviation (35.1-43.9) fL Plt Count (163-337) K/mm3 MPV (9.4-12.3) fl Neutrophils % (Manual) (40-60) % Band Neutrophils % (0-10) % Lymphocytes % (Manual) (20-40) % Atypical Lymphs % % Monocytes % (Manual) (2-10) % Eosinophils % (Manual) (0.8-7.0) % Basophils % (Manual) (0.2-1.2) Toxic Granulation Platelet Estimate Poikilocytosis Ovalocytes RBC Morph Comment PT (9.7-12.0) SECONDS INR Sodium (136-145) mEq/L Potassium (3.5-5.1) mEq/L Chloride (98-107) mEq/L Carbon Dioxide (21-32) mEq/L Anion Gap (5-15) BUN (7-18) mg/dL Creatinine (0.7-1.3) mg/dL Est Cr Clr Drug Dosing mL/min Estimated GFR (MDRD) (>60) mL/min BUN/Creatinine Ratio (14-18) Glucose (83-115) mg/dL Lactic Acid 2.3 H* (0.4-2.0) mmol/L Calcium (8.5-10.1) mg/dL Total Bilirubin (0.2-1.0) mg/dL AST (15-37) U/L ALT (16-63) U/L Alkaline Phosphatase (46-116) U/L C-Reactive Protein (<1.0) mg/dL Total Protein (6.4-8.2) g/dl Albumin (3.4-5.0) g/dl Globulin gm/dL Albumin/Globulin Ratio (1-2) Urine Color Yellow (Yellow) Urine Appearance Turbid H (Clear) Urine pH 5.5 (5.0-8.0) Ur Specific [place] 1.025 (1.005-1.030) Urine Protein 3+ H (Negative) Urine Glucose (UA) Negative (Negative) Urine Ketones Negative (Negative) Urine Occult Blood 3+ H (Negative) Urine Nitrite Positive H (Negative) Urine Bilirubin Negative (Negative) Urine Urobilinogen 0.2 (0.2-1.0) Ur Leukocyte Esterase 3+ H (Negative) Urine RBC 5-10 H (0-5) /hpf Urine WBC >100 H (0-5) /hpf Ur Squamous Epith Cells 0-5 (0-5) /hpf Urine Bacteria Many H (FEW) /hpf Urine Mucus Not seen (FEW) /hpf SARS-CoV-2 RNA (MELA) Negative (NEGATIVE) Meds: Medications Generic Name Dose Route Start Last Admin Trade Name Freq PRN Reason Stop Dose Admin Acetaminophen 650 mg 09/28/20 18:43 Acetaminophen 325 Mg Tab PO Q6H PRN Pain (Mild 1-3)/fever Albuterol/Ipratropium 3 ml 09/28/20 18:43 Albuterol/Ipratropium 3.0-0.5 Mg/3 Ml Neb Soln NEB Q4H PRN Shortness Of Breath/wheezing Chlorthalidone 12.5 mg 09/29/20 09:00 Chlorthalidone 25 Mg Tab PO DAILY PHILL Docusate Sodium 100 mg 09/28/20 18:43 Docusate Sodium 100 Mg Cap PO BID PRN Constipation Heparin Sodium (Porcine) 5,000 units 09/28/20 18:45 09/28/20 19:57 Heparin Sodium 5,000 Units/Ml Vial SUBCUT 5,000 units Q8HR PHILL Administration Hydralazine HCl 10 mg 09/28/20 19:07 Hydralazine 20 Mg/Ml Sdv IVPUSH Q4H PRN Hypertension Sodium Chloride 1,000 mls @ 150 mls/hr 09/28/20 16:06 09/28/20 17:20 Normal Saline IV 09/28/20 22:45 150 mls/hr NOW STA Administration Lactated Ringer's 1,000 mls @ 80 mls/hr 09/28/20 18:45 Ringers, Lactated IV ASDIRECTED PHILL Promethazine HCl 12.5 mg/ 50.5 mls @ 100 mls/hr 09/28/20 18:43 Sodium Chloride IV Q6H PRN Nausea/Vomiting Ceftriaxone Sodium 1 gm/ 100 mls @ 200 mls/hr 09/29/20 18:00 Sodium Chloride IV Q24H PHILL Sodium Chloride 500 mls @ 200 mls/hr 09/28/20 19:15 Normal Saline IV 09/28/20 21:44 .BOLUS ONE Insulin Human Lispro 0 unit 09/28/20 22:00 Insulin Lispro 100 Units/Ml 3 Ml Vial SUBCUT QIDACANDBED [facility] Protocol Morphine Sulfate 2 mg 09/28/20 18:43 Morphine 2 Mg/Ml Syringe IVPUSH 09/29/20 18:45 Q4H PRN Pain (severe 7-10) Non-Formulary Medication 1 dose 09/28/20 19:15 Leuprolide Acetate IM ASDIRECTED [facility] Simvastatin 40 mg 09/29/20 09:00 Simvastatin 40 Mg Tab PO DAILY PHILL Sodium Bicarbonate 650 mg 09/28/20 21:00 Sodium Bicarbonate 650 Mg Tab PO BID PHILL Sodium Chloride 10 ml 09/28/20 15:36 09/28/20 16:00 Sodium Chloride 0.9% 10 Ml Syringe FLUSH 10 ml ASDIRECTED PRN Administration Keep Vein Open Discontinued Medications Generic Name Dose Route Start Last Admin Trade Name Freq PRN Reason Stop Dose Admin Ceftriaxone Sodium 2 gm/ 100 mls @ 200 mls/hr 09/28/20 17:35 09/28/20 17:45 Sodium Chloride IV 09/28/20 18:04 200 mls/hr ONETIME ONE Administration - Re-Assessments/Exams Free Text/Narrative Re-Assessment/Exam: Patient is an 80-year-old male presenting to the emergency department with complaints of increased weakness and fatigue. He does have a chronic suprapubic catheter. States a few days ago he had some cough but this is since resolved. Denies any known fever but did have a temperature of 100.1 on triage. He was also mildly tachycardic in the low 100s. I have ordered a septic work-up. RN will replace the suprapubic catheter to collect a urine sample. I will start IV fluids of NS at 150 mils per hour. 09/28/20 1700 Hematology significant for WBC elevated at 14.71, hemoglobin low at 11.0, sodium low at 132, anion gap 18.1, BUN 34, creatinine 2.1, lactic acid at 2.3, CRP 21.3. Urinalysis is pending. Based on this criteria, patient does rule in for sepsis. He is not hypotensive, therefore I would not bolus fluid, however he does have NS going at 150 mils per hour. Once urine is collected I will start Rocephin 2 g IV. 09/28/20 18:05 Results of the chest x-ray show a small density within the left lung base other due to atelectasis or small area of pneumonia if patient has infectious symptoms. Urinalysis is grossly positive for urinary tract infection as evidenced by positive nitrites and 3+ leukocyte esterase. Micro is currently pending. I have ordered Rocephin 2 g IV to be given. 09/28/20 18:25 Case discussed with hospitalist, Dr. Parisi. He has accepted the patient for admission to the medical surgical floor with telemetry for urosepsis. Patient updated and is in agreement. Departure - Departure Time of Disposition: 18:25 Disposition: Admitted As Inpatient 65 Condition: Good Clinical Impression: UTI, Urinary tract infectious disease, Generalized weakness, Suprapubic catheter - Discharge Information Sepsis Event Note (ED) - Evaluation Sepsis Screening Result: No Definite Risk - Focused Exam Vital Signs: Vital Signs Temp Pulse Resp BP Pulse Ox 09/28/20 15:25 100.1 F 116 H 20 126/67 96 - My Orders Last 24 Hours: My Active Orders 09/28/20 15:36 Sodium Chloride 0.9% [Saline Flush] 10 ml FLUSH ASDIRECTED PRN Blood Culture x2 Reflex Set [OM.PC] Stat Saline Lock Insert [OM.PC] Stat 09/28/20 15:55 CULTURE BLOOD [BC] Stat 09/28/20 16:02 CULTURE BLOOD [BC] Stat 09/28/20 16:06 Sodium Chloride 0.9% [Normal Saline] 1,000 ml IV NOW 09/28/20 17:40 CULTURE URINE [RM] Stat - Assessment/Plan Last 24 Hours: My Active Orders 09/28/20 15:36 Sodium Chloride 0.9% [Saline Flush] 10 ml FLUSH ASDIRECTED PRN Blood Culture x2 Reflex Set [OM.PC] Stat Saline Lock Insert [OM.PC] Stat 09/28/20 15:55 CULTURE BLOOD [BC] Stat 09/28/20 16:02 CULTURE BLOOD [BC] Stat 09/28/20 16:06 Sodium Chloride 0.9% [Normal Saline] 1,000 ml IV NOW 09/28/20 17:40 CULTURE URINE [] Stat
--- NOTE | 2020-09-28 16:15 | CR ---
Chest: Portable view of the chest was obtained. Comparison: No prior chest imaging is available. Heart size is normal. Slight tortuosity of the thoracic aorta is seen. Small density is noted within the left lung base. Lungs otherwise are clear. Bony structures show nothing acute. Impression: 1. Small density within left lung base either due to atelectasis or small area of pneumonia if patient has infectious symptoms. 2. Nothing acute is otherwise seen. Diagnostic code #3
[2020-09-28] MEDS ORDERED: cefTRIAXone 2 GM in Sodium Chloride 0.9% 100 ML IV ONE (17:35)
[2020-09-28] MEDS ORDERED: Albuterol/Ipratropium 3.0-0.5 MG/3 ML Neb Soln NEB PRN (18:43)
[2020-09-28] MEDS ORDERED: Morphine 2 MG/ML SYRINGE IVPUSH PRN (18:43)
[2020-09-28] MEDS ORDERED: Acetaminophen 325 MG Tab PO PRN (18:43)
[2020-09-28] MEDS ORDERED: Promethazine 12.5 MG in Sodium Chloride 0.9% 50 ML IV PRN (18:43)
[2020-09-28] MEDS ORDERED: Docusate Sodium 100 MG Cap PO PRN (18:43)
[2020-09-28] MEDS ORDERED: hydrALAZINE 20 MG/ML SDV IVPUSH PRN (19:07)
--- NOTE | 2020-09-28 19:09 | PCM.HP.2 ---
H&P History of Present Illness - General Date of Service: 09/28/20 Admit Problem/Dx: Admission Diagnosis/Problem Admission Diagnosis/Problem Urosepsis Source of Information: Patient, Other (and chart) - History of Present Illness Initial Comments - Free Text/Narative: Patient is an 80-year-old male with a history of bladder cancer, prostate cancer and chronic use of suprapubic catheter for was brought to the ER due to generalized weakness and fatigue for 2 days. Otherwise the patient denies head ache, dizziness, chest pain, abdominal pain, nausea, vomiting, fever or chills. Patient recalled that he had a cough a few days ago. He was hospitalized due to urosepsis in the past. In the ER, urinalysis compatible with infection. Suprapubic catheter was replaced into the ER. chest x-ray show a small density within the left lung base other due to atelectasis or small area of pneumonia if patient has infectious symptoms. He was admitted to our hospital on 12/26/2019 due to UTI. - Related Data Allergies/Adverse Reactions: Allergies Allergy/AdvReac Type Severity Reaction Status Date / Time No Known Allergies Allergy Verified 09/28/20 20:12 Home Medications: Home Meds Bicalutamide [Casodex] 50 mg PO DAILY 03/21/15 [History] Leuprolide Acetate [Lupron Depot] 1 dose IM ASDIRECTED 03/21/15 [History] Simvastatin [Zocor] 40 mg PO DAILY 03/21/15 [History] Chlorthalidone 12.5 mg PO DAILY 12/26/19 [History] Non-Formulary Medication [NF Drug] 1 applic TOP Q6H PRN 12/26/19 [History] Sodium Bicarbonate 650 mg PO DAILY 12/26/19 [History] Glimepiride 1 mg PO DAILY 09/28/20 [History] Multivitamin 1 tab PO DAILY 09/28/20 [History] Past Medical History HEENT History: Reports: Cataract, Impaired Vision Other HEENT History: reading glasses Cardiovascular History: Reports: High Cholesterol Other Gastrointestinal History: currently having rectal bleeding Genitourinary History: Reports: Retention, Urinary Other Genitourinary History: Suprapubic cath for CA of bladder and complications from treatment Other Musculoskeletal History: chronic leg pain Endocrine/Metabolic History: Reports: Diabetes, Type II Immunologic History: Reports: Immunosuppression Oncologic (Cancer) History: Reports: Bladder, Prostate Other Oncologic History: transitional cell bladder cancer - Past Surgical History HEENT Surgical History: Reports: Cataract Surgery GI Surgical History: Reports: Colon, Colostomy Male Surgical History: Reports: Suprapubic Catheter Placement Other Male Surgeries/Procedures: prostatectomy, TURP, calculous of bladder, diverticulum of bladder Oncologic Surgical History: Reports: Other (See Below) Social & Family History - Family History Family Medical History: No Pertinent Family History (Denies genetic diseases in the family) - Tobacco Use Tobacco Use Status *Q: Current Every Day Tobacco User Years of Tobacco use: 60 Packs/Tins Daily: 1 - Caffeine Use Caffeine Use: Reports: Coffee Other Caffeine Use: unknown - Recreational Drug Use Recreational Drug Use: No - Living Situation & Occupation Living situation: Reports: , with Spouse Occupation: Retired H&P Review of Systems - Review of Systems: Review Of Systems: See Below General: Reports: Weakness, Fatigue HEENT: Reports: No Symptoms Pulmonary: Reports: No Symptoms Cardiovascular: Reports: No Symptoms Gastrointestinal: Reports: No Symptoms Genitourinary: Reports: No Symptoms Musculoskeletal: Reports: No Symptoms Skin: Reports: No Symptoms Psychiatric: Reports: No Symptoms Neurological: Reports: No Symptoms Hematologic/Lymphatic: Reports: No Symptoms Immunologic: Reports: No Symptoms Exam - Exam Exam: See Below - Vital Signs Vital Signs: Last Vital Signs Temp 37.8 C 09/28/20 15:25 Pulse 116 H 09/28/20 15:25 Resp 20 09/28/20 15:25 BP 126/67 09/28/20 15:25 Pulse Ox 96 09/28/20 15:25 Weight: 81.647 kg - Exam General: Alert, Oriented, Cooperative HEENT: Conjunctiva Clear, EOMI, Pupils Equal, Pupils Reactive, PERRLA Neck: Supple, Trachea Midline, Full Range of Motion Lungs: Clear to Auscultation, Normal Respiratory Effort Cardiovascular: Normal S1, Normal S2 GI/Abdominal Exam: Normal Bowel Sounds, Soft, Non-Tender, No Organomegaly, No Distention, Other (Colostomy bag in place) (Male) Exam: Other (Suprapubic catheter in place) Extremities: Normal Inspection, Normal Range of Motion, Non-Tender Skin: Warm, Dry, Intact Neurological: Strength Equal Bilateral, Normal Speech, Normal Tone, Sensation Intact Neuro Extensive - Mental Status: Alert, Oriented x3 Psychiatric: Normal Mood - Patient Data Lab Results Last 24 hrs: Laboratory Results - last 24 hr 09/28/20 09/28/20 09/28/20 Range/Units 15:55 15:55 15:55 WBC 14.71 H (4.23-9.07) K/mm3 RBC 3.78 L (4.63-6.08) M/mm3 Hgb 11.0 L (13.7-17.5) gm/dl Hct 34.0 L (40.1-51.0) % MCV 89.9 (79.0-92.2) fl MCH 29.1 (25.7-32.2) pg MCHC 32.4 (32.2-35.5) g/dl RDW Std Deviation 43.7 (35.1-43.9) fL Plt Count 283 D (163-337) K/mm3 MPV 9.6 (9.4-12.3) fl Neutrophils % (Manual) 84 H (40-60) % Band Neutrophils % 0 (0-10) % Lymphocytes % (Manual) 7 L (20-40) % Atypical Lymphs % 0 % Monocytes % (Manual) 9 (2-10) % Eosinophils % (Manual) 0 L (0.8-7.0) % Basophils % (Manual) 0 L (0.2-1.2) Toxic Granulation Few Platelet Estimate Adequate Poikilocytosis 1+ slight Ovalocytes 1+ slight RBC Morph Comment Normal PT 10.8 (9.7-12.0) SECONDS INR 1.01 Sodium 132 L (136-145) mEq/L Potassium 4.1 (3.5-5.1) mEq/L Chloride 95 L (98-107) mEq/L Carbon Dioxide 23 (21-32) mEq/L Anion Gap 18.1 H (5-15) BUN 34 H (7-18) mg/dL Creatinine 2.1 H (0.7-1.3) mg/dL Est Cr Clr Drug Dosing 29.38 mL/min Estimated GFR (MDRD) 30 (>60) mL/min BUN/Creatinine Ratio 16.2 (14-18) Glucose 128 H (83-115) mg/dL Lactic Acid (0.4-2.0) mmol/L Calcium 8.9 (8.5-10.1) mg/dL Total Bilirubin 0.5 (0.2-1.0) mg/dL AST 16 (15-37) U/L ALT 17 (16-63) U/L Alkaline Phosphatase 95 (46-116) U/L C-Reactive Protein 21.3 H* (<1.0) mg/dL Total Protein 8.0 (6.4-8.2) g/dl Albumin 3.2 L (3.4-5.0) g/dl Globulin 4.8 gm/dL Albumin/Globulin Ratio 0.7 L (1-2) Urine Color (Yellow) Urine Appearance (Clear) Urine pH (5.0-8.0) Ur Specific [place] (1.005-1.030) Urine Protein (Negative) Urine Glucose (UA) (Negative) Urine Ketones (Negative) Urine Occult Blood (Negative) Urine Nitrite (Negative) Urine Bilirubin (Negative) Urine Urobilinogen (0.2-1.0) Ur Leukocyte Esterase (Negative) Urine RBC (0-5) /hpf Urine WBC (0-5) /hpf Ur Squamous Epith Cells (0-5) /hpf Urine Bacteria (FEW) /hpf Urine Mucus (FEW) /hpf SARS-CoV-2 RNA (MELA) (NEGATIVE) 09/28/20 09/28/20 09/28/20 Range/Units 15:55 15:55 17:40 WBC (4.23-9.07) K/mm3 RBC (4.63-6.08) M/mm3 Hgb (13.7-17.5) gm/dl Hct (40.1-51.0) % MCV (79.0-92.2) fl MCH (25.7-32.2) pg MCHC (32.2-35.5) g/dl RDW Std Deviation (35.1-43.9) fL Plt Count (163-337) K/mm3 MPV (9.4-12.3) fl Neutrophils % (Manual) (40-60) % Band Neutrophils % (0-10) % Lymphocytes % (Manual) (20-40) % Atypical Lymphs % % Monocytes % (Manual) (2-10) % Eosinophils % (Manual) (0.8-7.0) % Basophils % (Manual) (0.2-1.2) Toxic Granulation Platelet Estimate Poikilocytosis Ovalocytes RBC Morph Comment PT (9.7-12.0) SECONDS INR Sodium (136-145) mEq/L Potassium (3.5-5.1) mEq/L Chloride (98-107) mEq/L Carbon Dioxide (21-32) mEq/L Anion Gap (5-15) BUN (7-18) mg/dL Creatinine (0.7-1.3) mg/dL Est Cr Clr Drug Dosing mL/min Estimated GFR (MDRD) (>60) mL/min BUN/Creatinine Ratio (14-18) Glucose (83-115) mg/dL Lactic Acid 2.3 H* (0.4-2.0) mmol/L Calcium (8.5-10.1) mg/dL Total Bilirubin (0.2-1.0) mg/dL AST (15-37) U/L ALT (16-63) U/L Alkaline Phosphatase (46-116) U/L C-Reactive Protein (<1.0) mg/dL Total Protein (6.4-8.2) g/dl Albumin (3.4-5.0) g/dl Globulin gm/dL Albumin/Globulin Ratio (1-2) Urine Color Yellow (Yellow) Urine Appearance Turbid H (Clear) Urine pH 5.5 (5.0-8.0) Ur Specific [place] 1.025 (1.005-1.030) Urine Protein 3+ H (Negative) Urine Glucose (UA) Negative (Negative) Urine Ketones Negative (Negative) Urine Occult Blood 3+ H (Negative) Urine Nitrite Positive H (Negative) Urine Bilirubin Negative (Negative) Urine Urobilinogen 0.2 (0.2-1.0) Ur Leukocyte Esterase 3+ H (Negative) Urine RBC 5-10 H (0-5) /hpf Urine WBC >100 H (0-5) /hpf Ur Squamous Epith Cells 0-5 (0-5) /hpf Urine Bacteria Many H (FEW) /hpf Urine Mucus Not seen (FEW) /hpf SARS-CoV-2 RNA (MELA) Negative (NEGATIVE) Result Diagrams: 09/29/20 05:06 09/29/20 05:06 Sepsis Event Note - Evaluation Sepsis Screening Result: Severe Sepsis Risk - Focused Exam Vital Signs: Vital Signs Temp Pulse Resp BP Pulse Ox 09/28/20 15:25 37.8 C 116 H 20 126/67 96 Problem List Initiated/Reviewed/Updated: Yes Orders Last 24hrs: Active Orders 24 hr Category Date Time Status Patient Status [ADT] Routine ADT 09/28/20 18:26 Active Bedrest Bedside Commode [RC] ASDIRECTED Care 09/28/20 18:43 Ordered Cardiac Monitoring [RC] CONTINUOUS Care 09/28/20 18:43 Ordered Intake and Output [RC] QSHIFT Care 09/28/20 18:43 Ordered Oxygen Therapy [RC] PRN Care 09/28/20 18:43 Ordered Pulse Oximetry [RC] CONTINUOUS Care 09/28/20 18:43 Ordered RT Aerosol Therapy [RC] ASDIRECTED Care 09/28/20 18:46 Ordered VTE/DVT Education [RC] PER UNIT ROUTINE Care 09/28/20 18:43 Ordered Vital Signs [RC] Q4H Care 09/28/20 18:43 Ordered OT Evaluation and Treatment [CONS] Routine Cons 09/28/20 18:43 Ordered PT Evaluation and Treatment [CONS] Routine Cons 09/28/20 18:43 Ordered Consistent Carbohydrate Diet [DIET] Diet 09/28/20 Breakfast Ordered CBC WITH AUTO DIFF [HEME] DAILY Lab 09/29/20 05:00 Ordered CBC WITH AUTO DIFF [HEME] DAILY Lab 09/30/20 05:00 Ordered CBC WITH AUTO DIFF [HEME] DAILY Lab 10/01/20 05:00 Ordered CBC WITH AUTO DIFF [HEME] DAILY Lab 10/02/20 05:00 Ordered CBC WITH AUTO DIFF [HEME] DAILY Lab 10/03/20 05:00 Ordered COMPREHENSIVE METABOLIC PN,CMP [CHEM] DAILY Lab 09/29/20 05:00 Ordered COMPREHENSIVE METABOLIC PN,CMP [CHEM] DAILY Lab 09/30/20 05:00 Ordered COMPREHENSIVE METABOLIC PN,CMP [CHEM] DAILY Lab 10/01/20 05:00 Ordered COMPREHENSIVE METABOLIC PN,CMP [CHEM] DAILY Lab 10/02/20 05:00 Ordered COMPREHENSIVE METABOLIC PN,CMP [CHEM] DAILY Lab 10/03/20 05:00 Ordered CULTURE BLOOD [BC] Stat Lab 09/28/20 15:55 Received CULTURE BLOOD [BC] Stat Lab 09/28/20 16:02 Received CULTURE URINE [RM] Stat Lab 09/28/20 17:40 Received LACTIC ACID [CHEM] Routine Lab 09/28/20 18:50 Ordered MAGNESIUM [CHEM] Routine Lab 09/28/20 18:43 Ordered PHOSPHORUS [CHEM] Routine Lab 09/28/20 18:43 Ordered PRO B-TYPE NATRIUR PEPT,BNPPRO [CHEM] Routine Lab 09/28/20 18:49 Ordered TROPONIN I [CHEM] Routine Lab 09/28/20 18:43 Ordered Acetaminophen [TylenoL] Med 09/28/20 18:43 Ordered 650 mg PO Q6H PRN Albuterol/Ipratropium [DuoNeb 3.0-0.5 MG/3 ML] Med 09/28/20 18:43 Ordered 3 ml NEB Q4H PRN Chlorthalidone Med 09/29/20 09:00 Ordered 12.5 mg PO DAILY Docusate Sodium [Colace] Med 09/28/20 18:43 Ordered 100 mg PO BID PRN Heparin Sodium Med 09/28/20 18:45 Ordered 5,000 units SUBCUT Q8H Lactated Ringers [Ringers, Lactated] 1,000 ml Med 09/28/20 18:45 Ordered IV ASDIRECTED Leuprolide Acetate Med 09/28/20 19:15 Ordered 1 dose IM ASDIRECTED Morphine Med 09/28/20 18:43 Ordered 2 mg IVPUSH Q4H PRN Promethazine [Phenergan] 12.5 mg Med 09/28/20 18:43 Ordered Sodium Chloride 0.9% [Normal Saline] 50 ml IV Q6H Simvastatin [Zocor] Med 09/29/20 09:00 Ordered 40 mg PO DAILY Sodium Bicarbonate Med 09/28/20 21:00 Ordered 650 mg PO BID Sodium Chloride 0.9% [Normal Saline] 1,000 ml Med 09/28/20 16:06 Active IV NOW Sodium Chloride 0.9% [Normal Saline] 500 ml Med 09/28/20 19:15 Ordered IV .BOLUS Sodium Chloride 0.9% [Saline Flush] Med 09/28/20 15:36 Active 10 ml FLUSH ASDIRECTED PRN cefTRIAXone [Rocephin] 1 gm Med 09/28/20 19:00 Ordered Sodium Chloride 0.9% [Normal Saline] 100 ml IV Q24H hydrALAZINE [Apresoline] Med 09/28/20 19:07 Ordered 10 mg IVPUSH Q4H PRN Blood Culture x2 Reflex Set [OM.PC] Stat Oth 09/28/20 15:36 Ordered Saline Lock Insert [OM.PC] Stat Oth 09/28/20 15:36 Ordered Medication Orders Acetaminophen (Acetaminophen 325 Mg Tab) 650 mg PO Q6H PRN PRN Reason: Pain (Mild 1-3)/fever Albuterol/Ipratropium (Albuterol/Ipratropium 3.0-0.5 Mg/3 Ml Neb Soln) 3 ml NEB Q4H PRN PRN Reason: Shortness Of Breath/wheezing Chlorthalidone (Chlorthalidone 25 Mg Tab) 12.5 mg PO DAILY PHILL Docusate Sodium (Docusate Sodium 100 Mg Cap) 100 mg PO BID PRN PRN Reason: Constipation Heparin Sodium (Porcine) (Heparin Sodium 5,000 Units/Ml Vial) 5,000 units SUBCUT Q8HR PHILL Hydralazine HCl (Hydralazine 20 Mg/Ml Sdv) 10 mg IVPUSH Q4H PRN PRN Reason: Hypertension Sodium Chloride (Normal Saline) 1,000 mls @ 150 mls/hr IV NOW STA Stop: 09/28/20 22:45 Last Admin: 09/28/20 17:20 Dose: 150 mls/hr Documented by: LARA Lactated Ringer's (Ringers, Lactated) 1,000 mls @ 80 mls/hr IV ASDIRECTED [facility] Promethazine HCl 12.5 mg/ (Sodium Chloride) 50.5 mls @ 100 mls/hr IV Q6H PRN PRN Reason: Nausea/Vomiting Ceftriaxone Sodium 1 gm/ (Sodium Chloride) 100 mls @ 200 mls/hr IV Q24H [facility] Sodium Chloride (Normal Saline) 500 mls @ 200 mls/hr IV .BOLUS ONE Stop: 09/28/20 21:44 Morphine Sulfate (Morphine 2 Mg/Ml Syringe) 2 mg IVPUSH Q4H PRN PRN Reason: Pain (severe 7-10) Stop: 09/29/20 18:45 Non-Formulary Medication (Leuprolide Acetate) 1 dose IM ASDIRECTED [facility] Simvastatin (Simvastatin 40 Mg Tab) 40 mg PO DAILY [facility] Sodium Bicarbonate (Sodium Bicarbonate 650 Mg Tab) 650 mg PO BID [facility] Sodium Chloride (Sodium Chloride 0.9% 10 Ml Syringe) 10 ml FLUSH ASDIRECTED PRN PRN Reason: Keep Vein Open Last Admin: 09/28/20 16:00 Dose: 10 ml Documented by: LARA Assessment/Plan Comment:: Patient is an 80-year-old male with a history of bladder cancer, prostate cancer and chronic use of suprapubic catheter for was brought to the ER due to generalized weakness and fatigue for 2 days. Assessment: Early sepsis 2nd to UTI and possible pneumonia LA 2.3 UTI, chronic use of suprapubic cath, which was replaced in the ER today, recurrent Pneumonia, LLL CXR - small density within left lung base either due to atelectasis or small area of pneumonia. 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 Creatinine has been around 1.8 since 12/25/2019 Tobacco use disorder Plan: 1. he will be admitted to hospital on inpatient telemetry. 2. Patient could have early sepsis. Patient has a tachycardia and blood pressure is lower than his usual. Lactic acid 2.3. He does not have tachypnea. Blood culture IV fluid resuscitation 3. Urine culture. I would like to start with the ceftriaxone. pending urine culture. 4. I will treat his pneumonia as a community-acquired pneumonia with ceftriaxone and azithromycin. Sputum culture MRSA screen 5. 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 Diabetic diet. Home medication glimepiride is on hold. Insulin sliding scale. Adjust insulin based on sugar levels 7. Avoid nephrotoxic meds. Repeat renal function in morning 8. Smoking cessation counseled. Nicotine patch if necessary 9. DVT prophylaxis: Heparin 10. CODE STATUS: Full - Mortality Measure Prognosis:: Poor
[2020-09-28] MEDS ORDERED: Sodium Chloride 0.9% 500 ML IV ONE (19:15)
[2020-09-28] MEDS ORDERED: LEUPROLIDE ACETATE 45 MG IM SCH (19:15)
[2020-09-28] MEDS: Heparin Sodium 5,000 Units/ML Vial SUBCUT SCH (19:57)
[2020-09-28] MEDS ORDERED: Sodium Bicarbonate 650 MG Tab PO SCH (21:00)
[2020-09-28] MEDS: Insulin Lispro 100 Units/ML 3 ML Vial SUBCUT SCH (21:39)
[2020-09-28] MEDS: Lactated Ringers 1,000 ML IV SCH (22:38)
[2020-09-29] MEDS: Heparin Sodium 5,000 Units/ML Vial SUBCUT SCH ×3 (05:15→21:20)
[2020-09-29] MEDS: Insulin Lispro 100 Units/ML 3 ML Vial SUBCUT SCH ×4 (06:24→21:21)
[2020-09-29] MEDS: Simvastatin 40 MG Tab PO SCH (09:05)
[2020-09-29] MEDS: Sodium Bicarbonate 650 MG Tab PO SCH (09:05)
[2020-09-29] MEDS: Chlorthalidone 25 MG Tab PO SCH (09:05)
--- NOTE | 2020-09-29 13:01 | PCM.PN ---
- General Info Date of Service: 09/29/20 Admission Dx/Problem (Free Text): Admission Diagnosis/Problem Admission Diagnosis/Problem Urosepsis Subjective Update: Patient is an 80-year-old male with a history of bladder cancer, prostate cancer and chronic use of suprapubic catheter for was brought to the ER due to generalized weakness and fatigue for 2 days. Patient feels better today. But that he still has generalized weakness. Otherwise denies nausea, vomiting, or abdominal pain. Vital signs are stable and acceptable. WBC 9.23 which was a 14.75 yesterday Hemoglobin 9.8 Sodium 134 Creatinine 1.8 BNP 650 - Review of Systems Systems Review Comment:: General: Reports: Weakness, Fatigue HEENT: Reports: No Symptoms Pulmonary: Reports: No Symptoms Cardiovascular: Reports: No Symptoms Gastrointestinal: Reports: No Symptoms Genitourinary: Reports: No Symptoms Musculoskeletal: Reports: No Symptoms Skin: Reports: No Symptoms Psychiatric: Reports: No Symptoms Neurological: Reports: No Symptoms Hematologic/Lymphatic: Reports: No Symptoms Immunologic: Reports: No Symptoms - Patient Data Vitals - Most Recent: Last Vital Signs Temp 36.8 C 09/29/20 12:16 Pulse 82 09/29/20 12:16 Resp 12 09/29/20 12:16 BP 109/62 09/29/20 12:16 Pulse Ox 97 09/29/20 12:16 Weight - Most Recent: 85.956 kg I&O - Last 24 Hours: Intake & Output 09/28/20 09/29/20 09/29/20 22:59 06:59 14:59 Intake Total 1217 Output Total 60 860 Balance -60 357 Lab Results Last 24 Hours: Laboratory Results - last 24 hr 09/28/20 09/28/20 09/28/20 Range/Units 15:55 15:55 15:55 WBC 14.71 H (4.23-9.07) K/mm3 RBC 3.78 L (4.63-6.08) M/mm3 Hgb 11.0 L (13.7-17.5) gm/dl Hct 34.0 L (40.1-51.0) % MCV 89.9 (79.0-92.2) fl MCH 29.1 (25.7-32.2) pg MCHC 32.4 (32.2-35.5) g/dl RDW Std Deviation 43.7 (35.1-43.9) fL Plt Count 283 D (163-337) K/mm3 MPV 9.6 (9.4-12.3) fl Neut % (Auto) (34.0-67.9) % Lymph % (Auto) (21.8-53.1) % Tate % (Auto) (5.3-12.2) % Eos % (Auto) (0.8-7.0) Baso % (Auto) (0.1-1.2) % Neut # (Auto) (1.78-5.38) K/mm3 Lymph # (Auto) (1.32-3.57) K/mm3 Tate # (Auto) (0.30-0.82) K/mm3 Eos # (Auto) (0.04-0.54) K/mm3 Baso # (Auto) (0.01-0.08) K/mm3 Neutrophils % (Manual) 84 H (40-60) % Band Neutrophils % 0 (0-10) % Lymphocytes % (Manual) 7 L (20-40) % Atypical Lymphs % 0 % Monocytes % (Manual) 9 (2-10) % Eosinophils % (Manual) 0 L (0.8-7.0) % Basophils % (Manual) 0 L (0.2-1.2) Toxic Granulation Few Platelet Estimate Adequate Poikilocytosis 1+ slight Ovalocytes 1+ slight RBC Morph Comment Normal PT 10.8 (9.7-12.0) SECONDS INR 1.01 Sodium 132 L (136-145) mEq/L Potassium 4.1 (3.5-5.1) mEq/L Chloride 95 L (98-107) mEq/L Carbon Dioxide 23 (21-32) mEq/L Anion Gap 18.1 H (5-15) BUN 34 H (7-18) mg/dL Creatinine 2.1 H (0.7-1.3) mg/dL Est Cr Clr Drug Dosing 29.38 mL/min Estimated GFR (MDRD) 30 (>60) mL/min BUN/Creatinine Ratio 16.2 (14-18) Glucose 128 H (83-115) mg/dL POC Glucose (70-99) mg/dL Lactic Acid (0.4-2.0) mmol/L Calcium 8.9 (8.5-10.1) mg/dL Phosphorus (2.6-4.7) mg/dL Magnesium (1.8-2.4) mg/dl Total Bilirubin 0.5 (0.2-1.0) mg/dL AST 16 (15-37) U/L ALT 17 (16-63) U/L Alkaline Phosphatase 95 (46-116) U/L Troponin I (0.00-0.056) ng/mL C-Reactive Protein 21.3 H* (<1.0) mg/dL NT-Pro-B Natriuret Pep (0-450) pg/mL Total Protein 8.0 (6.4-8.2) g/dl Albumin 3.2 L (3.4-5.0) g/dl Globulin 4.8 gm/dL Albumin/Globulin Ratio 0.7 L (1-2) Urine Color (Yellow) Urine Appearance (Clear) Urine pH (5.0-8.0) Ur Specific [place] (1.005-1.030) Urine Protein (Negative) Urine Glucose (UA) (Negative) Urine Ketones (Negative) Urine Occult Blood (Negative) Urine Nitrite (Negative) Urine Bilirubin (Negative) Urine Urobilinogen (0.2-1.0) Ur Leukocyte Esterase (Negative) Urine RBC (0-5) /hpf Urine WBC (0-5) /hpf Ur Squamous Epith Cells (0-5) /hpf Urine Bacteria (FEW) /hpf Urine Mucus (FEW) /hpf SARS-CoV-2 RNA (MELA) (NEGATIVE) 09/28/20 09/28/20 09/28/20 Range/Units 15:55 15:55 17:40 WBC (4.23-9.07) K/mm3 RBC (4.63-6.08) M/mm3 Hgb (13.7-17.5) gm/dl Hct (40.1-51.0) % MCV (79.0-92.2) fl MCH (25.7-32.2) pg MCHC (32.2-35.5) g/dl RDW Std Deviation (35.1-43.9) fL Plt Count (163-337) K/mm3 MPV (9.4-12.3) fl Neut % (Auto) (34.0-67.9) % Lymph % (Auto) (21.8-53.1) % Tate % (Auto) (5.3-12.2) % Eos % (Auto) (0.8-7.0) Baso % (Auto) (0.1-1.2) % Neut # (Auto) (1.78-5.38) K/mm3 Lymph # (Auto) (1.32-3.57) K/mm3 Tate # (Auto) (0.30-0.82) K/mm3 Eos # (Auto) (0.04-0.54) K/mm3 Baso # (Auto) (0.01-0.08) K/mm3 Neutrophils % (Manual) (40-60) % Band Neutrophils % (0-10) % Lymphocytes % (Manual) (20-40) % Atypical Lymphs % % Monocytes % (Manual) (2-10) % Eosinophils % (Manual) (0.8-7.0) % Basophils % (Manual) (0.2-1.2) Toxic Granulation Platelet Estimate Poikilocytosis Ovalocytes RBC Morph Comment PT (9.7-12.0) SECONDS INR Sodium (136-145) mEq/L Potassium (3.5-5.1) mEq/L Chloride (98-107) mEq/L Carbon Dioxide (21-32) mEq/L Anion Gap (5-15) BUN (7-18) mg/dL Creatinine (0.7-1.3) mg/dL Est Cr Clr Drug Dosing mL/min Estimated GFR (MDRD) (>60) mL/min BUN/Creatinine Ratio (14-18) Glucose (83-115) mg/dL POC Glucose (70-99) mg/dL Lactic Acid 2.3 H* (0.4-2.0) mmol/L Calcium (8.5-10.1) mg/dL Phosphorus (2.6-4.7) mg/dL Magnesium (1.8-2.4) mg/dl Total Bilirubin (0.2-1.0) mg/dL AST (15-37) U/L ALT (16-63) U/L Alkaline Phosphatase (46-116) U/L Troponin I (0.00-0.056) ng/mL C-Reactive Protein (<1.0) mg/dL NT-Pro-B Natriuret Pep (0-450) pg/mL Total Protein (6.4-8.2) g/dl Albumin (3.4-5.0) g/dl Globulin gm/dL Albumin/Globulin Ratio (1-2) Urine Color Yellow (Yellow) Urine Appearance Turbid H (Clear) Urine pH 5.5 (5.0-8.0) Ur Specific [place] 1.025 (1.005-1.030) Urine Protein 3+ H (Negative) Urine Glucose (UA) Negative (Negative) Urine Ketones Negative (Negative) Urine Occult Blood 3+ H (Negative) Urine Nitrite Positive H (Negative) Urine Bilirubin Negative (Negative) Urine Urobilinogen 0.2 (0.2-1.0) Ur Leukocyte Esterase 3+ H (Negative) Urine RBC 5-10 H (0-5) /hpf Urine WBC >100 H (0-5) /hpf Ur Squamous Epith Cells 0-5 (0-5) /hpf Urine Bacteria Many H (FEW) /hpf Urine Mucus Not seen (FEW) /hpf SARS-CoV-2 RNA (MELA) Negative (NEGATIVE) 09/28/20 09/28/20 09/28/20 Range/Units 19:10 19:10 19:10 WBC (4.23-9.07) K/mm3 RBC (4.63-6.08) M/mm3 Hgb (13.7-17.5) gm/dl Hct (40.1-51.0) % MCV (79.0-92.2) fl MCH (25.7-32.2) pg MCHC (32.2-35.5) g/dl RDW Std Deviation (35.1-43.9) fL Plt Count (163-337) K/mm3 MPV (9.4-12.3) fl Neut % (Auto) (34.0-67.9) % Lymph % (Auto) (21.8-53.1) % Tate % (Auto) (5.3-12.2) % Eos % (Auto) (0.8-7.0) Baso % (Auto) (0.1-1.2) % Neut # (Auto) (1.78-5.38) K/mm3 Lymph # (Auto) (1.32-3.57) K/mm3 Tate # (Auto) (0.30-0.82) K/mm3 Eos # (Auto) (0.04-0.54) K/mm3 Baso # (Auto) (0.01-0.08) K/mm3 Neutrophils % (Manual) (40-60) % Band Neutrophils % (0-10) % Lymphocytes % (Manual) (20-40) % Atypical Lymphs % % Monocytes % (Manual) (2-10) % Eosinophils % (Manual) (0.8-7.0) % Basophils % (Manual) (0.2-1.2) Toxic Granulation Platelet Estimate Poikilocytosis Ovalocytes RBC Morph Comment PT (9.7-12.0) SECONDS INR Sodium (136-145) mEq/L Potassium (3.5-5.1) mEq/L Chloride (98-107) mEq/L Carbon Dioxide (21-32) mEq/L Anion Gap (5-15) BUN (7-18) mg/dL Creatinine (0.7-1.3) mg/dL Est Cr Clr Drug Dosing mL/min Estimated GFR (MDRD) (>60) mL/min BUN/Creatinine Ratio (14-18) Glucose (83-115) mg/dL POC Glucose (70-99) mg/dL Lactic Acid 0.6 (0.4-2.0) mmol/L Calcium (8.5-10.1) mg/dL Phosphorus 2.8 (2.6-4.7) mg/dL Magnesium 2.1 (1.8-2.4) mg/dl Total Bilirubin (0.2-1.0) mg/dL AST (15-37) U/L ALT (16-63) U/L Alkaline Phosphatase (46-116) U/L Troponin I 0.028 (0.00-0.056) ng/mL C-Reactive Protein (<1.0) mg/dL NT-Pro-B Natriuret Pep 650 H (0-450) pg/mL Total Protein (6.4-8.2) g/dl Albumin (3.4-5.0) g/dl Globulin gm/dL Albumin/Globulin Ratio (1-2) Urine Color (Yellow) Urine Appearance (Clear) Urine pH (5.0-8.0) Ur Specific [place] (1.005-1.030) Urine Protein (Negative) Urine Glucose (UA) (Negative) Urine Ketones (Negative) Urine Occult Blood (Negative) Urine Nitrite (Negative) Urine Bilirubin (Negative) Urine Urobilinogen (0.2-1.0) Ur Leukocyte Esterase (Negative) Urine RBC (0-5) /hpf Urine WBC (0-5) /hpf Ur Squamous Epith Cells (0-5) /hpf Urine Bacteria (FEW) /hpf Urine Mucus (FEW) /hpf SARS-CoV-2 RNA (MELA) (NEGATIVE) 09/28/20 09/29/20 09/29/20 Range/Units 21:33 05:06 05:06 WBC 9.33 H (4.23-9.07) K/mm3 RBC 3.40 L (4.63-6.08) M/mm3 Hgb 9.8 L (13.7-17.5) gm/dl Hct 30.7 L (40.1-51.0) % MCV 90.3 (79.0-92.2) fl MCH 28.8 (25.7-32.2) pg MCHC 31.9 L (32.2-35.5) g/dl RDW Std Deviation 44.0 H (35.1-43.9) fL Plt Count 236 (163-337) K/mm3 MPV 9.4 (9.4-12.3) fl Neut % (Auto) 72.1 H (34.0-67.9) % Lymph % (Auto) 16.1 L (21.8-53.1) % Tate % (Auto) 10.9 (5.3-12.2) % Eos % (Auto) 0.5 L (0.8-7.0) Baso % (Auto) 0.2 (0.1-1.2) % Neut # (Auto) 6.72 H (1.78-5.38) K/mm3 Lymph # (Auto) 1.50 (1.32-3.57) K/mm3 Tate # (Auto) 1.02 H (0.30-0.82) K/mm3 Eos # (Auto) 0.05 (0.04-0.54) K/mm3 Baso # (Auto) 0.02 (0.01-0.08) K/mm3 Neutrophils % (Manual) (40-60) % Band Neutrophils % (0-10) % Lymphocytes % (Manual) (20-40) % Atypical Lymphs % % Monocytes % (Manual) (2-10) % Eosinophils % (Manual) (0.8-7.0) % Basophils % (Manual) (0.2-1.2) Toxic Granulation Platelet Estimate Poikilocytosis Ovalocytes RBC Morph Comment PT (9.7-12.0) SECONDS INR Sodium 134 L (136-145) mEq/L Potassium 3.6 (3.5-5.1) mEq/L Chloride 100 (98-107) mEq/L Carbon Dioxide 23 (21-32) mEq/L Anion Gap 14.6 (5-15) BUN 32 H (7-18) mg/dL Creatinine 1.8 H (0.7-1.3) mg/dL Est Cr Clr Drug Dosing 34.28 mL/min Estimated GFR (MDRD) 36 (>60) mL/min BUN/Creatinine Ratio 17.8 (14-18) Glucose 93 (83-115) mg/dL POC Glucose 149 H (70-99) mg/dL Lactic Acid (0.4-2.0) mmol/L Calcium 8.2 L (8.5-10.1) mg/dL Phosphorus (2.6-4.7) mg/dL Magnesium (1.8-2.4) mg/dl Total Bilirubin 0.4 (0.2-1.0) mg/dL AST 15 (15-37) U/L ALT 17 (16-63) U/L Alkaline Phosphatase 84 (46-116) U/L Troponin I (0.00-0.056) ng/mL C-Reactive Protein (<1.0) mg/dL NT-Pro-B Natriuret Pep (0-450) pg/mL Total Protein 6.8 (6.4-8.2) g/dl Albumin 2.6 L (3.4-5.0) g/dl Globulin 4.2 gm/dL Albumin/Globulin Ratio 0.6 L (1-2) Urine Color (Yellow) Urine Appearance (Clear) Urine pH (5.0-8.0) Ur Specific [place] (1.005-1.030) Urine Protein (Negative) Urine Glucose (UA) (Negative) Urine Ketones (Negative) Urine Occult Blood (Negative) Urine Nitrite (Negative) Urine Bilirubin (Negative) Urine Urobilinogen (0.2-1.0) Ur Leukocyte Esterase (Negative) Urine RBC (0-5) /hpf Urine WBC (0-5) /hpf Ur Squamous Epith Cells (0-5) /hpf Urine Bacteria (FEW) /hpf Urine Mucus (FEW) /hpf SARS-CoV-2 RNA (MELA) (NEGATIVE) 09/29/20 09/29/20 Range/Units 05:07 12:18 WBC (4.23-9.07) K/mm3 RBC (4.63-6.08) M/mm3 Hgb (13.7-17.5) gm/dl Hct (40.1-51.0) % MCV (79.0-92.2) fl MCH (25.7-32.2) pg MCHC (32.2-35.5) g/dl RDW Std Deviation (35.1-43.9) fL Plt Count (163-337) K/mm3 MPV (9.4-12.3) fl Neut % (Auto) (34.0-67.9) % Lymph % (Auto) (21.8-53.1) % Tate % (Auto) (5.3-12.2) % Eos % (Auto) (0.8-7.0) Baso % (Auto) (0.1-1.2) % Neut # (Auto) (1.78-5.38) K/mm3 Lymph # (Auto) (1.32-3.57) K/mm3 Tate # (Auto) (0.30-0.82) K/mm3 Eos # (Auto) (0.04-0.54) K/mm3 Baso # (Auto) (0.01-0.08) K/mm3 Neutrophils % (Manual) (40-60) % Band Neutrophils % (0-10) % Lymphocytes % (Manual) (20-40) % Atypical Lymphs % % Monocytes % (Manual) (2-10) % Eosinophils % (Manual) (0.8-7.0) % Basophils % (Manual) (0.2-1.2) Toxic Granulation Platelet Estimate Poikilocytosis Ovalocytes RBC Morph Comment PT (9.7-12.0) SECONDS INR Sodium (136-145) mEq/L Potassium (3.5-5.1) mEq/L Chloride (98-107) mEq/L Carbon Dioxide (21-32) mEq/L Anion Gap (5-15) BUN (7-18) mg/dL Creatinine (0.7-1.3) mg/dL Est Cr Clr Drug Dosing mL/min Estimated GFR (MDRD) (>60) mL/min BUN/Creatinine Ratio (14-18) Glucose (83-115) mg/dL POC Glucose 88 126 H (70-99) mg/dL Lactic Acid (0.4-2.0) mmol/L Calcium (8.5-10.1) mg/dL Phosphorus (2.6-4.7) mg/dL Magnesium (1.8-2.4) mg/dl Total Bilirubin (0.2-1.0) mg/dL AST (15-37) U/L ALT (16-63) U/L Alkaline Phosphatase (46-116) U/L Troponin I (0.00-0.056) ng/mL C-Reactive Protein (<1.0) mg/dL NT-Pro-B Natriuret Pep (0-450) pg/mL Total Protein (6.4-8.2) g/dl Albumin (3.4-5.0) g/dl Globulin gm/dL Albumin/Globulin Ratio (1-2) Urine Color (Yellow) Urine Appearance (Clear) Urine pH (5.0-8.0) Ur Specific [place] (1.005-1.030) Urine Protein (Negative) Urine Glucose (UA) (Negative) Urine Ketones (Negative) Urine Occult Blood (Negative) Urine Nitrite (Negative) Urine Bilirubin (Negative) Urine Urobilinogen (0.2-1.0) Ur Leukocyte Esterase (Negative) Urine RBC (0-5) /hpf Urine WBC (0-5) /hpf Ur Squamous Epith Cells (0-5) /hpf Urine Bacteria (FEW) /hpf Urine Mucus (FEW) /hpf SARS-CoV-2 RNA (MELA) (NEGATIVE) Dino Results Last 24 Hours: Microbiology 09/28/20 17:40 Urine Culture - Preliminary Urine, Suprapubic Bladder Asp Gram Negative Rods Med Orders - Current: Current Medications Acetaminophen (Acetaminophen 325 Mg Tab) 650 mg PO Q6H PRN PRN Reason: Pain (Mild 1-3)/fever Albuterol/Ipratropium (Albuterol/Ipratropium 3.0-0.5 Mg/3 Ml Neb Soln) 3 ml NEB Q4H PRN PRN Reason: Shortness Of Breath/wheezing Chlorthalidone (Chlorthalidone 25 Mg Tab) 12.5 mg PO DAILY [facility] Last Admin: 09/29/20 09:05 Dose: 12.5 mg Documented by: Docusate Sodium (Docusate Sodium 100 Mg Cap) 100 mg PO BID PRN PRN Reason: Constipation Heparin Sodium (Porcine) (Heparin Sodium 5,000 Units/Ml Vial) 5,000 units SUBCUT Q8HR [facility] Last Admin: 09/29/20 05:15 Dose: 5,000 units Documented by: Hydralazine HCl (Hydralazine 20 Mg/Ml Sdv) 10 mg IVPUSH Q4H PRN PRN Reason: Hypertension Lactated Ringer's (Ringers, Lactated) 1,000 mls @ 80 mls/hr IV ASDIRECTED [facility] Last Admin: 09/28/20 22:38 Dose: 80 mls/hr Documented by: Promethazine HCl 12.5 mg/ (Sodium Chloride) 50.5 mls @ 100 mls/hr IV Q6H PRN PRN Reason: Nausea/Vomiting Ceftriaxone Sodium 1 gm/ (Sodium Chloride) 100 mls @ 200 mls/hr IV Q24H [facility] Azithromycin 500 mg/ Sodium (Chloride) 250 mls @ 250 mls/hr IV Q24H [facility] Insulin Human Lispro (Insulin Lispro 100 Units/Ml 3 Ml Vial) 0 unit SUBCUT QIDACANDBED [facility]; Protocol Last Admin: 09/29/20 12:37 Dose: Not Given Documented by: Morphine Sulfate (Morphine 2 Mg/Ml Syringe) 2 mg IVPUSH Q4H PRN PRN Reason: Pain (severe 7-10) Stop: 09/29/20 18:45 Multivitamins/Minerals/Vitamin C (Multivitamin Tab) 1 tab PO DAILY [facility] Simvastatin (Simvastatin 40 Mg Tab) 40 mg PO DAILY [facility] Last Admin: 09/29/20 09:05 Dose: 40 mg Documented by: Sodium Bicarbonate (Sodium Bicarbonate 650 Mg Tab) 650 mg PO DAILY [facility] Last Admin: 09/29/20 09:05 Dose: 650 mg Documented by: Sodium Chloride (Sodium Chloride 0.9% 10 Ml Syringe) 10 ml FLUSH ASDIRECTED PRN PRN Reason: Keep Vein Open Last Admin: 09/28/20 16:00 Dose: 10 ml Documented by: Discontinued Medications Sodium Chloride (Normal Saline) 1,000 mls @ 150 mls/hr IV NOW STA Stop: 09/28/20 22:45 Last Admin: 09/28/20 17:20 Dose: 150 mls/hr Documented by: Ceftriaxone Sodium 2 gm/ (Sodium Chloride) 100 mls @ 200 mls/hr IV ONETIME ONE Stop: 09/28/20 18:04 Last Admin: 09/28/20 17:45 Dose: 200 mls/hr Documented by: Sodium Chloride (Normal Saline) 500 mls @ 200 mls/hr IV .BOLUS ONE Stop: 09/28/20 21:44 Last Admin: 09/28/20 20:00 Dose: 200 mls/hr Documented by: Non-Formulary Medication (Leuprolide Acetate) 1 dose IM ASDIRECTED PHILL Sodium Bicarbonate (Sodium Bicarbonate 650 Mg Tab) 650 mg PO BID PHILL - Exam Physical Findings Comments:: General: Alert, Oriented, Cooperative HEENT: Conjunctiva Clear, EOMI, Pupils Equal, Pupils Reactive, PERRLA Neck: Supple, Trachea Midline, Full Range of Motion Lungs: Clear to Auscultation, Normal Respiratory Effort Cardiovascular: Normal S1, Normal S2 GI/Abdominal Exam: Normal Bowel Sounds, Soft, Non-Tender, No Organomegaly, No Distention, Other (Colostomy bag in place) (Male) Exam: Other (Suprapubic catheter in place) Extremities: Normal Inspection, Normal Range of Motion, Non-Tender Skin: Warm, Dry, Intact Neurological: Strength Equal Bilateral, Normal Speech, Normal Tone, Sensation Intact Neuro Extensive - Mental Status: Alert, Oriented x3 Psychiatric: Normal Mood - Patient Data Lab Results Last 24 hrs: Laboratory Results - last 24 hr 09/28/20 09/28/20 09/28/20 Range/Units 15:55 15:55 15:55 WBC 14.71 H (4.23-9.07) K/mm3 RBC 3.78 L (4.63-6.08) M/mm3 Hgb 11.0 L (13.7-17.5) gm/dl Hct 34.0 L (40.1-51.0) % MCV 89.9 (79.0-92.2) fl MCH 29.1 (25.7-32.2) pg MCHC 32.4 (32.2-35.5) g/dl RDW Std Deviation 43.7 (35.1-43.9) fL Plt Count 283 D (163-337) K/mm3 MPV 9.6 (9.4-12.3) fl Neut % (Auto) (34.0-67.9) % Lymph % (Auto) (21.8-53.1) % Tate % (Auto) (5.3-12.2) % Eos % (Auto) (0.8-7.0) Baso % (Auto) (0.1-1.2) % Neut # (Auto) (1.78-5.38) K/mm3 Lymph # (Auto) (1.32-3.57) K/mm3 Tate # (Auto) (0.30-0.82) K/mm3 Eos # (Auto) (0.04-0.54) K/mm3 Baso # (Auto) (0.01-0.08) K/mm3 Neutrophils % (Manual) 84 H (40-60) % Band Neutrophils % 0 (0-10) % Lymphocytes % (Manual) 7 L (20-40) % Atypical Lymphs % 0 % Monocytes % (Manual) 9 (2-10) % Eosinophils % (Manual) 0 L (0.8-7.0) % Basophils % (Manual) 0 L (0.2-1.2) Toxic Granulation Few Platelet Estimate Adequate Poikilocytosis 1+ slight Ovalocytes 1+ slight RBC Morph Comment Normal PT 10.8 (9.7-12.0) SECONDS INR 1.01 Sodium 132 L (136-145) mEq/L Potassium 4.1 (3.5-5.1) mEq/L Chloride 95 L (98-107) mEq/L Carbon Dioxide 23 (21-32) mEq/L Anion Gap 18.1 H (5-15) BUN 34 H (7-18) mg/dL Creatinine 2.1 H (0.7-1.3) mg/dL Est Cr Clr Drug Dosing 29.38 mL/min Estimated GFR (MDRD) 30 (>60) mL/min BUN/Creatinine Ratio 16.2 (14-18) Glucose 128 H (83-115) mg/dL POC Glucose (70-99) mg/dL Lactic Acid (0.4-2.0) mmol/L Calcium 8.9 (8.5-10.1) mg/dL Phosphorus (2.6-4.7) mg/dL Magnesium (1.8-2.4) mg/dl Total Bilirubin 0.5 (0.2-1.0) mg/dL AST 16 (15-37) U/L ALT 17 (16-63) U/L Alkaline Phosphatase 95 (46-116) U/L Troponin I (0.00-0.056) ng/mL C-Reactive Protein 21.3 H* (<1.0) mg/dL NT-Pro-B Natriuret Pep (0-450) pg/mL Total Protein 8.0 (6.4-8.2) g/dl Albumin 3.2 L (3.4-5.0) g/dl Globulin 4.8 gm/dL Albumin/Globulin Ratio 0.7 L (1-2) Urine Color (Yellow) Urine Appearance (Clear) Urine pH (5.0-8.0) Ur Specific [place] (1.005-1.030) Urine Protein (Negative) Urine Glucose (UA) (Negative) Urine Ketones (Negative) Urine Occult Blood (Negative) Urine Nitrite (Negative) Urine Bilirubin (Negative) Urine Urobilinogen (0.2-1.0) Ur Leukocyte Esterase (Negative) Urine RBC (0-5) /hpf Urine WBC (0-5) /hpf Ur Squamous Epith Cells (0-5) /hpf Urine Bacteria (FEW) /hpf Urine Mucus (FEW) /hpf SARS-CoV-2 RNA (MELA) (NEGATIVE) 09/28/20 09/28/20 09/28/20 Range/Units 15:55 15:55 17:40 WBC (4.23-9.07) K/mm3 RBC (4.63-6.08) M/mm3 Hgb (13.7-17.5) gm/dl Hct (40.1-51.0) % MCV (79.0-92.2) fl MCH (25.7-32.2) pg MCHC (32.2-35.5) g/dl RDW Std Deviation (35.1-43.9) fL Plt Count (163-337) K/mm3 MPV (9.4-12.3) fl Neut % (Auto) (34.0-67.9) % Lymph % (Auto) (21.8-53.1) % Tate % (Auto) (5.3-12.2) % Eos % (Auto) (0.8-7.0) Baso % (Auto) (0.1-1.2) % Neut # (Auto) (1.78-5.38) K/mm3 Lymph # (Auto) (1.32-3.57) K/mm3 Tate # (Auto) (0.30-0.82) K/mm3 Eos # (Auto) (0.04-0.54) K/mm3 Baso # (Auto) (0.01-0.08) K/mm3 Neutrophils % (Manual) (40-60) % Band Neutrophils % (0-10) % Lymphocytes % (Manual) (20-40) % Atypical Lymphs % % Monocytes % (Manual) (2-10) % Eosinophils % (Manual) (0.8-7.0) % Basophils % (Manual) (0.2-1.2) Toxic Granulation Platelet Estimate Poikilocytosis Ovalocytes RBC Morph Comment PT (9.7-12.0) SECONDS INR Sodium (136-145) mEq/L Potassium (3.5-5.1) mEq/L Chloride (98-107) mEq/L Carbon Dioxide (21-32) mEq/L Anion Gap (5-15) BUN (7-18) mg/dL Creatinine (0.7-1.3) mg/dL Est Cr Clr Drug Dosing mL/min Estimated GFR (MDRD) (>60) mL/min BUN/Creatinine Ratio (14-18) Glucose (83-115) mg/dL POC Glucose (70-99) mg/dL Lactic Acid 2.3 H* (0.4-2.0) mmol/L Calcium (8.5-10.1) mg/dL Phosphorus (2.6-4.7) mg/dL Magnesium (1.8-2.4) mg/dl Total Bilirubin (0.2-1.0) mg/dL AST (15-37) U/L ALT (16-63) U/L Alkaline Phosphatase (46-116) U/L Troponin I (0.00-0.056) ng/mL C-Reactive Protein (<1.0) mg/dL NT-Pro-B Natriuret Pep (0-450) pg/mL Total Protein (6.4-8.2) g/dl Albumin (3.4-5.0) g/dl Globulin gm/dL Albumin/Globulin Ratio (1-2) Urine Color Yellow (Yellow) Urine Appearance Turbid H (Clear) Urine pH 5.5 (5.0-8.0) Ur Specific [place] 1.025 (1.005-1.030) Urine Protein 3+ H (Negative) Urine Glucose (UA) Negative (Negative) Urine Ketones Negative (Negative) Urine Occult Blood 3+ H (Negative) Urine Nitrite Positive H (Negative) Urine Bilirubin Negative (Negative) Urine Urobilinogen 0.2 (0.2-1.0) Ur Leukocyte Esterase 3+ H (Negative) Urine RBC 5-10 H (0-5) /hpf Urine WBC >100 H (0-5) /hpf Ur Squamous Epith Cells 0-5 (0-5) /hpf Urine Bacteria Many H (FEW) /hpf Urine Mucus Not seen (FEW) /hpf SARS-CoV-2 RNA (MELA) Negative (NEGATIVE) 09/28/20 09/28/20 09/28/20 Range/Units 19:10 19:10 19:10 WBC (4.23-9.07) K/mm3 RBC (4.63-6.08) M/mm3 Hgb (13.7-17.5) gm/dl Hct (40.1-51.0) % MCV (79.0-92.2) fl MCH (25.7-32.2) pg MCHC (32.2-35.5) g/dl RDW Std Deviation (35.1-43.9) fL Plt Count (163-337) K/mm3 MPV (9.4-12.3) fl Neut % (Auto) (34.0-67.9) % Lymph % (Auto) (21.8-53.1) % Tate % (Auto) (5.3-12.2) % Eos % (Auto) (0.8-7.0) Baso % (Auto) (0.1-1.2) % Neut # (Auto) (1.78-5.38) K/mm3 Lymph # (Auto) (1.32-3.57) K/mm3 Tate # (Auto) (0.30-0.82) K/mm3 Eos # (Auto) (0.04-0.54) K/mm3 Baso # (Auto) (0.01-0.08) K/mm3 Neutrophils % (Manual) (40-60) % Band Neutrophils % (0-10) % Lymphocytes % (Manual) (20-40) % Atypical Lymphs % % Monocytes % (Manual) (2-10) % Eosinophils % (Manual) (0.8-7.0) % Basophils % (Manual) (0.2-1.2) Toxic Granulation Platelet Estimate Poikilocytosis Ovalocytes RBC Morph Comment PT (9.7-12.0) SECONDS INR Sodium (136-145) mEq/L Potassium (3.5-5.1) mEq/L Chloride (98-107) mEq/L Carbon Dioxide (21-32) mEq/L Anion Gap (5-15) BUN (7-18) mg/dL Creatinine (0.7-1.3) mg/dL Est Cr Clr Drug Dosing mL/min Estimated GFR (MDRD) (>60) mL/min BUN/Creatinine Ratio (14-18) Glucose (83-115) mg/dL POC Glucose (70-99) mg/dL Lactic Acid 0.6 (0.4-2.0) mmol/L Calcium (8.5-10.1) mg/dL Phosphorus 2.8 (2.6-4.7) mg/dL Magnesium 2.1 (1.8-2.4) mg/dl Total Bilirubin (0.2-1.0) mg/dL AST (15-37) U/L ALT (16-63) U/L Alkaline Phosphatase (46-116) U/L Troponin I 0.028 (0.00-0.056) ng/mL C-Reactive Protein (<1.0) mg/dL NT-Pro-B Natriuret Pep 650 H (0-450) pg/mL Total Protein (6.4-8.2) g/dl Albumin (3.4-5.0) g/dl Globulin gm/dL Albumin/Globulin Ratio (1-2) Urine Color (Yellow) Urine Appearance (Clear) Urine pH (5.0-8.0) Ur Specific [place] (1.005-1.030) Urine Protein (Negative) Urine Glucose (UA) (Negative) Urine Ketones (Negative) Urine Occult Blood (Negative) Urine Nitrite (Negative) Urine Bilirubin (Negative) Urine Urobilinogen (0.2-1.0) Ur Leukocyte Esterase (Negative) Urine RBC (0-5) /hpf Urine WBC (0-5) /hpf Ur Squamous Epith Cells (0-5) /hpf Urine Bacteria (FEW) /hpf Urine Mucus (FEW) /hpf SARS-CoV-2 RNA (MELA) (NEGATIVE) 09/28/20 09/29/20 09/29/20 Range/Units 21:33 05:06 05:06 WBC 9.33 H (4.23-9.07) K/mm3 RBC 3.40 L (4.63-6.08) M/mm3 Hgb 9.8 L (13.7-17.5) gm/dl Hct 30.7 L (40.1-51.0) % MCV 90.3 (79.0-92.2) fl MCH 28.8 (25.7-32.2) pg MCHC 31.9 L (32.2-35.5) g/dl RDW Std Deviation 44.0 H (35.1-43.9) fL Plt Count 236 (163-337) K/mm3 MPV 9.4 (9.4-12.3) fl Neut % (Auto) 72.1 H (34.0-67.9) % Lymph % (Auto) 16.1 L (21.8-53.1) % Tate % (Auto) 10.9 (5.3-12.2) % Eos % (Auto) 0.5 L (0.8-7.0) Baso % (Auto) 0.2 (0.1-1.2) % Neut # (Auto) 6.72 H (1.78-5.38) K/mm3 Lymph # (Auto) 1.50 (1.32-3.57) K/mm3 Tate # (Auto) 1.02 H (0.30-0.82) K/mm3 Eos # (Auto) 0.05 (0.04-0.54) K/mm3 Baso # (Auto) 0.02 (0.01-0.08) K/mm3 Neutrophils % (Manual) (40-60) % Band Neutrophils % (0-10) % Lymphocytes % (Manual) (20-40) % Atypical Lymphs % % Monocytes % (Manual) (2-10) % Eosinophils % (Manual) (0.8-7.0) % Basophils % (Manual) (0.2-1.2) Toxic Granulation Platelet Estimate Poikilocytosis Ovalocytes RBC Morph Comment PT (9.7-12.0) SECONDS INR Sodium 134 L (136-145) mEq/L Potassium 3.6 (3.5-5.1) mEq/L Chloride 100 (98-107) mEq/L Carbon Dioxide 23 (21-32) mEq/L Anion Gap 14.6 (5-15) BUN 32 H (7-18) mg/dL Creatinine 1.8 H (0.7-1.3) mg/dL Est Cr Clr Drug Dosing 34.28 mL/min Estimated GFR (MDRD) 36 (>60) mL/min BUN/Creatinine Ratio 17.8 (14-18) Glucose 93 (83-115) mg/dL POC Glucose 149 H (70-99) mg/dL Lactic Acid (0.4-2.0) mmol/L Calcium 8.2 L (8.5-10.1) mg/dL Phosphorus (2.6-4.7) mg/dL Magnesium (1.8-2.4) mg/dl Total Bilirubin 0.4 (0.2-1.0) mg/dL AST 15 (15-37) U/L ALT 17 (16-63) U/L Alkaline Phosphatase 84 (46-116) U/L Troponin I (0.00-0.056) ng/mL C-Reactive Protein (<1.0) mg/dL NT-Pro-B Natriuret Pep (0-450) pg/mL Total Protein 6.8 (6.4-8.2) g/dl Albumin 2.6 L (3.4-5.0) g/dl Globulin 4.2 gm/dL Albumin/Globulin Ratio 0.6 L (1-2) Urine Color (Yellow) Urine Appearance (Clear) Urine pH (5.0-8.0) Ur Specific [place] (1.005-1.030) Urine Protein (Negative) Urine Glucose (UA) (Negative) Urine Ketones (Negative) Urine Occult Blood (Negative) Urine Nitrite (Negative) Urine Bilirubin (Negative) Urine Urobilinogen (0.2-1.0) Ur Leukocyte Esterase (Negative) Urine RBC (0-5) /hpf Urine WBC (0-5) /hpf Ur Squamous Epith Cells (0-5) /hpf Urine Bacteria (FEW) /hpf Urine Mucus (FEW) /hpf SARS-CoV-2 RNA (MELA) (NEGATIVE) 09/29/20 09/29/20 Range/Units 05:07 12:18 WBC (4.23-9.07) K/mm3 RBC (4.63-6.08) M/mm3 Hgb (13.7-17.5) gm/dl Hct (40.1-51.0) % MCV (79.0-92.2) fl MCH (25.7-32.2) pg MCHC (32.2-35.5) g/dl RDW Std Deviation (35.1-43.9) fL Plt Count (163-337) K/mm3 MPV (9.4-12.3) fl Neut % (Auto) (34.0-67.9) % Lymph % (Auto) (21.8-53.1) % [place] % (Auto) (5.3-12.2) % Eos % (Auto) (0.8-7.0) Baso % (Auto) (0.1-1.2) % Neut # (Auto) (1.78-5.38) K/mm3 Lymph # (Auto) (1.32-3.57) K/mm3 [place] # (Auto) (0.30-0.82) K/mm3 Eos # (Auto) (0.04-0.54) K/mm3 Baso # (Auto) (0.01-0.08) K/mm3 Neutrophils % (Manual) (40-60) % Band Neutrophils % (0-10) % Lymphocytes % (Manual) (20-40) % Atypical Lymphs % % Monocytes % (Manual) (2-10) % Eosinophils % (Manual) (0.8-7.0) % Basophils % (Manual) (0.2-1.2) Toxic Granulation Platelet Estimate Poikilocytosis Ovalocytes RBC Morph Comment PT (9.7-12.0) SECONDS INR Sodium (136-145) mEq/L Potassium (3.5-5.1) mEq/L Chloride (98-107) mEq/L Carbon Dioxide (21-32) mEq/L Anion Gap (5-15) BUN (7-18) mg/dL Creatinine (0.7-1.3) mg/dL Est Cr Clr Drug Dosing mL/min Estimated GFR (MDRD) (>60) mL/min BUN/Creatinine Ratio (14-18) Glucose (83-115) mg/dL POC Glucose 88 126 H (70-99) mg/dL Lactic Acid (0.4-2.0) mmol/L Calcium (8.5-10.1) mg/dL Phosphorus (2.6-4.7) mg/dL Magnesium (1.8-2.4) mg/dl Total Bilirubin (0.2-1.0) mg/dL AST (15-37) U/L ALT (16-63) U/L Alkaline Phosphatase (46-116) U/L Troponin I (0.00-0.056) ng/mL C-Reactive Protein (<1.0) mg/dL NT-Pro-B Natriuret Pep (0-450) pg/mL Total Protein (6.4-8.2) g/dl Albumin (3.4-5.0) g/dl Globulin gm/dL Albumin/Globulin Ratio (1-2) Urine Color (Yellow) Urine Appearance (Clear) Urine pH (5.0-8.0) Ur Specific [place] (1.005-1.030) Urine Protein (Negative) Urine Glucose (UA) (Negative) Urine Ketones (Negative) Urine Occult Blood (Negative) Urine Nitrite (Negative) Urine Bilirubin (Negative) Urine Urobilinogen (0.2-1.0) Ur Leukocyte Esterase (Negative) Urine RBC (0-5) /hpf Urine WBC (0-5) /hpf Ur Squamous Epith Cells (0-5) /hpf Urine Bacteria (FEW) /hpf Urine Mucus (FEW) /hpf SARS-CoV-2 RNA (MELA) (NEGATIVE) Result Diagrams: 09/29/20 05:06 09/29/20 05:06 Dino Results Last 24 hrs: Microbiology 09/28/20 17:40 Urine Culture - Preliminary Urine, Suprapubic Bladder Asp Gram Negative Rods Sepsis Event Note - Evaluation Sepsis Screening Result: No Definite Risk - Focused Exam Vital Signs: Vital Signs Temp Temp Pulse Resp BP BP Pulse Ox 09/29/20 12:16 36.8 C 82 12 109/62 97 09/29/20 08:17 36.6 C 83 14 106/56 L 97 09/29/20 06:19 09/29/20 04:00 37.2 C 17 132/49 L 96 Pulse Ox 09/29/20 12:16 09/29/20 08:17 09/29/20 06:19 93 L 09/29/20 04:00 - Problem List Review Problem List Initiated/Reviewed/Updated: Yes - My Orders Last 24 Hours: My Active Orders 09/28/20 18:43 Bedrest Bedside Commode [RC] ASDIRECTED Cardiac Monitoring [RC] CONTINUOUS Intake and Output [RC] 16 Oxygen Therapy [RC] PRN VTE/DVT Education [RC] BID Vital Signs [RC] Q4HR OT Evaluation and Treatment [CONS] Routine PT Evaluation and Treatment [CONS] Routine Acetaminophen [TylenoL] 650 mg PO Q6H PRN Albuterol/Ipratropium [DuoNeb 3.0-0.5 MG/3 ML] 3 ml NEB Q4H PRN Docusate Sodium [Colace] 100 mg PO BID PRN Morphine 2 mg IVPUSH Q4H PRN Promethazine [Phenergan] 12.5 mg Sodium Chloride 0.9% [Normal Saline] 50 ml IV Q6H 09/28/20 18:45 Heparin Sodium 5,000 units SUBCUT Q8HR Lactated Ringers [Ringers, Lactated] 1,000 ml IV ASDIRECTED 09/28/20 18:46 RT Aerosol Therapy [RC] ASDIRECTED 09/28/20 19:07 hydrALAZINE [Apresoline] 10 mg IVPUSH Q4H PRN 09/28/20 20:28 Code Status [Resuscitation Status] Routine 09/28/20 20:54 Blood Glucose Check, Bedside [RC] WITHMEALSANDBED 09/28/20 22:00 Insulin Lispro [HumaLOG] See Protocol SUBCUT QIDACANDBED 09/29/20 09:00 Chlorthalidone 12.5 mg PO DAILY Simvastatin [Zocor] 40 mg PO DAILY Sodium Bicarbonate 650 mg PO DAILY 09/29/20 11:44 Patient Status [ADT] Routine 09/29/20 13:00 Azithromycin [Zithromax] 500 mg Sodium Chloride 0.9% [Normal Saline (AdvBag)] 250 ml IV Q24H 09/29/20 18:00 cefTRIAXone [Rocephin] 1 gm Sodium Chloride 0.9% [Normal Saline] 100 ml IV Q24H 09/30/20 05:00 CBC WITH AUTO DIFF [HEME] DAILY COMPREHENSIVE METABOLIC PN,CMP [CHEM] DAILY 09/30/20 09:00 Multivitamins [Tab-A-Davis] 1 tab PO DAILY 10/01/20 05:00 CBC WITH AUTO DIFF [HEME] DAILY COMPREHENSIVE METABOLIC PN,CMP [CHEM] DAILY 10/02/20 05:00 CBC WITH AUTO DIFF [HEME] DAILY COMPREHENSIVE METABOLIC PN,CMP [CHEM] DAILY 10/03/20 05:00 CBC WITH AUTO DIFF [HEME] DAILY COMPREHENSIVE METABOLIC PN,CMP [CHEM] DAILY - Plan Plan:: Patient is an 80-year-old male with a history of bladder cancer, prostate cancer and chronic use of suprapubic catheter for was brought to the ER due to gener alized weakness and fatigue for 2 days. Assessment: Early sepsis 2nd to UTI and possible pneumonia LA 2.3 UTI, chronic use of suprapubic cath, which was replaced in the ER today, recurrent Pneumonia, LLL CXR - small density within left lung base either due to atelectasis or small area of pneumonia. 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 Creatinine has been around 1.8 since 12/25/2019 Tobacco use disorder Plan: 1. he will be admitted to hospital on inpatient telemetry. 2. Patient could have early sepsis. Patient has a tachycardia and blood pressure is lower than his usual. Lactic acid 2.3. He does not have tachypnea. Blood culture IV fluid resuscitation 3. Urine culture -positive for gram-negative rods. Sensitivity pending Continue ceftriaxone. Awaiting for urine culture. 4. I will treat his pneumonia as a community-acquired pneumonia with ceftriaxone and azithromycin. Sputum culture pending MRSA screen 5. 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 Diabetic diet. Home medication glimepiride is on hold. Insulin sliding scale. Adjust insulin based on sugar levels 7. Avoid nephrotoxic meds. Repeat renal function in morning 8. Smoking cessation counseled. Nicotine patch if necessary 9. DVT prophylaxis: Heparin 10. CODE STATUS: Full Deposition Outpatient PT 1 or 2 more days
[2020-09-29] MEDS: Azithromycin 500 MG in Sodium Chloride 0.9% 250 ML IV SCH (14:17)
[2020-09-29] MEDS: Lactated Ringers 1,000 ML IV SCH (16:15)
[2020-09-29] MEDS: cefTRIAXone 1 GM in Sodium Chloride 0.9% 100 ML IV SCH (18:08)
[2020-09-30] MEDS: Lactated Ringers 1,000 ML IV SCH (05:18)
[2020-09-30] MEDS: Heparin Sodium 5,000 Units/ML Vial SUBCUT SCH ×3 (05:18→21:11)
[2020-09-30] MEDS: Insulin Lispro 100 Units/ML 3 ML Vial SUBCUT SCH ×3 (08:03→17:51)
[2020-09-30] MEDS: Sodium Bicarbonate 650 MG Tab PO SCH (08:41)
[2020-09-30] MEDS: Multivitamin Tab PO SCH (08:41)
[2020-09-30] MEDS: Simvastatin 40 MG Tab PO SCH (08:41)
[2020-09-30] MEDS: Chlorthalidone 25 MG Tab PO SCH (08:41)
[2020-09-30] MEDS: Azithromycin 500 MG in Sodium Chloride 0.9% 250 ML IV SCH (13:34)
--- NOTE | 2020-09-30 14:59 | PCM.PN ---
- General Info Date of Service: 09/30/20 Admission Dx/Problem (Free Text): Admission Diagnosis/Problem Admission Diagnosis/Problem Urosepsis Subjective Update: Patient is an 80-year-old male with a history of bladder cancer, prostate cancer and chronic use of suprapubic catheter for was brought to the ER due to generalized weakness and fatigue for 2 days. Patient feels fine today. But that he still has generalized weakness. Otherwise denies nausea, vomiting, or abdominal pain. Afebrile. He is on room air with good oxygen saturation WBC went down to normal 5.26, which was 9.33 yesterday Creatinine 1.7 Phos 2.8, mag 2.1 Urine culture showed gram-negative rods, sensitivity pending - Review of Systems Systems Review Comment:: General: Reports: Weakness, Fatigue HEENT: Reports: No Symptoms Pulmonary: Reports: No Symptoms Cardiovascular: Reports: No Symptoms Gastrointestinal: Reports: No Symptoms Genitourinary: Reports: No Symptoms Musculoskeletal: Reports: No Symptoms Skin: Reports: No Symptoms Psychiatric: Reports: No Symptoms Neurological: Reports: No Symptoms Hematologic/Lymphatic: Reports: No Symptoms Immunologic: Reports: No Symptoms - Patient Data Vitals - Most Recent: Last Vital Signs Temp 36.7 C 09/30/20 11:07 Pulse 83 09/30/20 11:07 Resp 14 09/30/20 11:07 BP 131/67 09/30/20 11:07 Pulse Ox 99 09/30/20 11:07 Weight - Most Recent: 85.956 kg I&O - Last 24 Hours: Intake & Output 09/29/20 09/30/20 09/30/20 22:59 06:59 14:59 Intake Total 1430 1761 Output Total 800 1400 Balance 630 361 Lab Results Last 24 Hours: Laboratory Results - last 24 hr 09/29/20 09/29/20 09/30/20 Range/Units 17:39 20:58 04:56 WBC 5.26 (4.23-9.07) K/mm3 RBC 3.46 L (4.63-6.08) M/mm3 Hgb 10.1 L (13.7-17.5) gm/dl Hct 31.3 L (40.1-51.0) % MCV 90.5 (79.0-92.2) fl MCH 29.2 (25.7-32.2) pg MCHC 32.3 (32.2-35.5) g/dl RDW Std Deviation 43.2 (35.1-43.9) fL Plt Count 219 (163-337) K/mm3 MPV 9.5 (9.4-12.3) fl Neut % (Auto) 53.6 (34.0-67.9) % Lymph % (Auto) 31.0 (21.8-53.1) % [place] % (Auto) 12.5 H (5.3-12.2) % Eos % (Auto) 2.5 (0.8-7.0) Baso % (Auto) 0.4 (0.1-1.2) % Neut # (Auto) 2.82 (1.78-5.38) K/mm3 Lymph # (Auto) 1.63 (1.32-3.57) K/mm3 [place] # (Auto) 0.66 (0.30-0.82) K/mm3 Eos # (Auto) 0.13 (0.04-0.54) K/mm3 Baso # (Auto) 0.02 (0.01-0.08) K/mm3 Sodium (136-145) mEq/L Potassium (3.5-5.1) mEq/L Chloride (98-107) mEq/L Carbon Dioxide (21-32) mEq/L Anion Gap (5-15) BUN (7-18) mg/dL Creatinine (0.7-1.3) mg/dL Est Cr Clr Drug Dosing mL/min Estimated GFR (MDRD) (>60) mL/min BUN/Creatinine Ratio (14-18) Glucose (83-115) mg/dL POC Glucose 173 H 98 (70-99) mg/dL Calcium (8.5-10.1) mg/dL Total Bilirubin (0.2-1.0) mg/dL AST (15-37) U/L ALT (16-63) U/L Alkaline Phosphatase (46-116) U/L Total Protein (6.4-8.2) g/dl Albumin (3.4-5.0) g/dl Globulin gm/dL Albumin/Globulin Ratio (1-2) 09/30/20 09/30/20 09/30/20 Range/Units 04:56 06:44 11:09 WBC (4.23-9.07) K/mm3 RBC (4.63-6.08) M/mm3 Hgb (13.7-17.5) gm/dl Hct (40.1-51.0) % MCV (79.0-92.2) fl MCH (25.7-32.2) pg MCHC (32.2-35.5) g/dl RDW Std Deviation (35.1-43.9) fL Plt Count (163-337) K/mm3 MPV (9.4-12.3) fl Neut % (Auto) (34.0-67.9) % Lymph % (Auto) (21.8-53.1) % [place] % (Auto) (5.3-12.2) % Eos % (Auto) (0.8-7.0) Baso % (Auto) (0.1-1.2) % Neut # (Auto) (1.78-5.38) K/mm3 Lymph # (Auto) (1.32-3.57) K/mm3 [place] # (Auto) (0.30-0.82) K/mm3 Eos # (Auto) (0.04-0.54) K/mm3 Baso # (Auto) (0.01-0.08) K/mm3 Sodium 137 (136-145) mEq/L Potassium 3.9 (3.5-5.1) mEq/L Chloride 102 (98-107) mEq/L Carbon Dioxide 25 (21-32) mEq/L Anion Gap 13.9 (5-15) BUN 27 H (7-18) mg/dL Creatinine 1.7 H (0.7-1.3) mg/dL Est Cr Clr Drug Dosing 36.30 mL/min Estimated GFR (MDRD) 39 (>60) mL/min BUN/Creatinine Ratio 15.9 (14-18) Glucose 114 (83-115) mg/dL POC Glucose 114 H 149 H (70-99) mg/dL Calcium 8.3 L (8.5-10.1) mg/dL Total Bilirubin 0.3 (0.2-1.0) mg/dL AST 27 (15-37) U/L ALT 28 (16-63) U/L Alkaline Phosphatase 81 (46-116) U/L Total Protein 6.7 (6.4-8.2) g/dl Albumin 2.5 L (3.4-5.0) g/dl Globulin 4.2 gm/dL Albumin/Globulin Ratio 0.6 L (1-2) Dino Results Last 24 Hours: Microbiology 09/28/20 17:40 Urine Culture - Preliminary Urine, Suprapubic Bladder Asp Gram Negative Rods 09/28/20 16:02 Aerobic Blood Culture - Preliminary Blood - Venous - Lab Draw NO GROWTH AFTER 1 DAY Anaerobic Blood Culture - Preliminary NO GROWTH AFTER 1 DAY 09/28/20 15:55 Aerobic Blood Culture - Preliminary Blood - Venous NO GROWTH AFTER 1 DAY Anaerobic Blood Culture - Preliminary NO GROWTH AFTER 1 DAY Med Orders - Current: Current Medications Acetaminophen (Acetaminophen 325 Mg Tab) 650 mg PO Q6H PRN PRN Reason: Pain (Mild 1-3)/fever Last Admin: 09/29/20 23:27 Dose: 650 mg Documented by: Albuterol/Ipratropium (Albuterol/Ipratropium 3.0-0.5 Mg/3 Ml Neb Soln) 3 ml NEB Q4H PRN PRN Reason: Shortness Of Breath/wheezing Chlorthalidone (Chlorthalidone 25 Mg Tab) 12.5 mg PO DAILY [facility] Last Admin: 09/30/20 08:41 Dose: 12.5 mg Documented by: Docusate Sodium (Docusate Sodium 100 Mg Cap) 100 mg PO BID PRN PRN Reason: Constipation Heparin Sodium (Porcine) (Heparin Sodium 5,000 Units/Ml Vial) 5,000 units SUBCUT Q8HR [facility] Last Admin: 09/30/20 13:35 Dose: 5,000 units Documented by: Hydralazine HCl (Hydralazine 20 Mg/Ml Sdv) 10 mg IVPUSH Q4H PRN PRN Reason: Hypertension Promethazine HCl 12.5 mg/ (Sodium Chloride) 50.5 mls @ 100 mls/hr IV Q6H PRN PRN Reason: Nausea/Vomiting Ceftriaxone Sodium 1 gm/ (Sodium Chloride) 100 mls @ 200 mls/hr IV Q24H [facility] Last Admin: 09/29/20 18:08 Dose: 200 mls/hr Documented by: Azithromycin 500 mg/ Sodium (Chloride) 250 mls @ 250 mls/hr IV Q24H [facility] Last Admin: 09/30/20 13:34 Dose: 250 mls/hr Documented by: Insulin Human Lispro (Insulin Lispro 100 Units/Ml 3 Ml Vial) 0 unit SUBCUT Q IDACANDBED [facility]; Protocol Last Admin: 09/30/20 11:58 Dose: Not Given Documented by: Multivitamins/Minerals/Vitamin C (Multivitamin Tab) 1 tab PO DAILY [facility] Last Admin: 09/30/20 08:41 Dose: 1 tab Documented by: Simvastatin (Simvastatin 40 Mg Tab) 40 mg PO DAILY [facility] Last Admin: 09/30/20 08:41 Dose: 40 mg Documented by: Sodium Bicarbonate (Sodium Bicarbonate 650 Mg Tab) 650 mg PO DAILY [facility] Last Admin: 09/30/20 08:41 Dose: 650 mg Documented by: Sodium Chloride (Sodium Chloride 0.9% 10 Ml Syringe) 10 ml FLUSH ASDIRECTED PRN PRN Reason: Keep Vein Open Last Admin: 09/28/20 16:00 Dose: 10 ml Documented by: Discontinued Medications Sodium Chloride (Normal Saline) 1,000 mls @ 150 mls/hr IV NOW STA Stop: 09/28/20 22:45 Last Admin: 09/28/20 17:20 Dose: 150 mls/hr Documented by: Ceftriaxone Sodium 2 gm/ (Sodium Chloride) 100 mls @ 200 mls/hr IV ONETIME ONE Stop: 09/28/20 18:04 Last Admin: 09/28/20 17:45 Dose: 200 mls/hr Documented by: Lactated Ringer's (Ringers, Lactated) 1,000 mls @ 80 mls/hr IV ASDIRECTED [facility] Last Admin: 09/30/20 05:18 Dose: 80 mls/hr Documented by: Sodium Chloride (Normal Saline) 500 mls @ 200 mls/hr IV .BOLUS ONE Stop: 09/28/20 21:44 Last Admin: 09/28/20 20:00 Dose: 200 mls/hr Documented by: Morphine Sulfate (Morphine 2 Mg/Ml Syringe) 2 mg IVPUSH Q4H PRN PRN Reason: Pain (severe 7-10) Stop: 09/29/20 18:45 Non-Formulary Medication (Leuprolide Acetate) 1 dose IM ASDIRECTED [facility] Sodium Bicarbonate (Sodium Bicarbonate 650 Mg Tab) 650 mg PO BID [facility] - Exam Physical Findings Comments:: General: Alert, Oriented, Cooperative HEENT: Conjunctiva Clear, EOMI, Pupils Equal, Pupils Reactive, PERRLA Neck: Supple, Trachea Midline, Full Range of Motion Lungs: Clear to Auscultation, Normal Respiratory Effort Cardiovascular: Normal S1, Normal S2 GI/Abdominal Exam: Normal Bowel Sounds, Soft, Non-Tender, No Organomegaly, No Distention, Other (Colostomy bag in place) (Male) Exam: Other (Suprapubic catheter in place) Extremities: Normal Inspection, Normal Range of Motion, Non-Tender Skin: Warm, Dry, Intact Neurological: Strength Equal Bilateral, Normal Speech, Normal Tone, Sensation Intact Neuro Extensive - Mental Status: Alert, Oriented x3 Psychiatric: Normal Mood - Patient Data Lab Results Last 24 hrs: Laboratory Results - last 24 hr 09/29/20 09/29/20 09/30/20 Range/Units 17:39 20:58 04:56 WBC 5.26 (4.23-9.07) K/mm3 RBC 3.46 L (4.63-6.08) M/mm3 Hgb 10.1 L (13.7-17.5) gm/dl Hct 31.3 L (40.1-51.0) % MCV 90.5 (79.0-92.2) fl MCH 29.2 (25.7-32.2) pg MCHC 32.3 (32.2-35.5) g/dl RDW Std Deviation 43.2 (35.1-43.9) fL Plt Count 219 (163-337) K/mm3 MPV 9.5 (9.4-12.3) fl Neut % (Auto) 53.6 (34.0-67.9) % Lymph % (Auto) 31.0 (21.8-53.1) % [place] % (Auto) 12.5 H (5.3-12.2) % Eos % (Auto) 2.5 (0.8-7.0) Baso % (Auto) 0.4 (0.1-1.2) % Neut # (Auto) 2.82 (1.78-5.38) K/mm3 Lymph # (Auto) 1.63 (1.32-3.57) K/mm3 [place] # (Auto) 0.66 (0.30-0.82) K/mm3 Eos # (Auto) 0.13 (0.04-0.54) K/mm3 Baso # (Auto) 0.02 (0.01-0.08) K/mm3 Sodium (136-145) mEq/L Potassium (3.5-5.1) mEq/L Chloride (98-107) mEq/L Carbon Dioxide (21-32) mEq/L Anion Gap (5-15) BUN (7-18) mg/dL Creatinine (0.7-1.3) mg/dL Est Cr Clr Drug Dosing mL/min Estimated GFR (MDRD) (>60) mL/min BUN/Creatinine Ratio (14-18) Glucose (83-115) mg/dL POC Glucose 173 H 98 (70-99) mg/dL Calcium (8.5-10.1) mg/dL Total Bilirubin (0.2-1.0) mg/dL AST (15-37) U/L ALT (16-63) U/L Alkaline Phosphatase (46-116) U/L Total Protein (6.4-8.2) g/dl Albumin (3.4-5.0) g/dl Globulin gm/dL Albumin/Globulin Ratio (1-2) 09/30/20 09/30/20 09/30/20 Range/Units 04:56 06:44 11:09 WBC (4.23-9.07) K/mm3 RBC (4.63-6.08) M/mm3 Hgb (13.7-17.5) gm/dl Hct (40.1-51.0) % MCV (79.0-92.2) fl MCH (25.7-32.2) pg MCHC (32.2-35.5) g/dl RDW Std Deviation (35.1-43.9) fL Plt Count (163-337) K/mm3 MPV (9.4-12.3) fl Neut % (Auto) (34.0-67.9) % Lymph % (Auto) (21.8-53.1) % [place] % (Auto) (5.3-12.2) % Eos % (Auto) (0.8-7.0) Baso % (Auto) (0.1-1.2) % Neut # (Auto) (1.78-5.38) K/mm3 Lymph # (Auto) (1.32-3.57) K/mm3 [place] # (Auto) (0.30-0.82) K/mm3 Eos # (Auto) (0.04-0.54) K/mm3 Baso # (Auto) (0.01-0.08) K/mm3 Sodium 137 (136-145) mEq/L Potassium 3.9 (3.5-5.1) mEq/L Chloride 102 (98-107) mEq/L Carbon Dioxide 25 (21-32) mEq/L Anion Gap 13.9 (5-15) BUN 27 H (7-18) mg/dL Creatinine 1.7 H (0.7-1.3) mg/dL Est Cr Clr Drug Dosing 36.30 mL/min Estimated GFR (MDRD) 39 (>60) mL/min BUN/Creatinine Ratio 15.9 (14-18) Glucose 114 (83-115) mg/dL POC Glucose 114 H 149 H (70-99) mg/dL Calcium 8.3 L (8.5-10.1) mg/dL Total Bilirubin 0.3 (0.2-1.0) mg/dL AST 27 (15-37) U/L ALT 28 (16-63) U/L Alkaline Phosphatase 81 (46-116) U/L Total Protein 6.7 (6.4-8.2) g/dl Albumin 2.5 L (3.4-5.0) g/dl Globulin 4.2 gm/dL Albumin/Globulin Ratio 0.6 L (1-2) Result Diagrams: 09/30/20 04:56 09/30/20 04:56 Dino Results Last 24 hrs: Microbiology 09/28/20 17:40 Urine Culture - Preliminary Urine, Suprapubic Bladder Asp Gram Negative Rods 09/28/20 16:02 Aerobic Blood Culture - Preliminary Blood - Venous - Lab Draw NO GROWTH AFTER 1 DAY Anaerobic Blood Culture - Preliminary NO GROWTH AFTER 1 DAY 09/28/20 15:55 Aerobic Blood Culture - Preliminary Blood - Venous NO GROWTH AFTER 1 DAY Anaerobic Blood Culture - Preliminary NO GROWTH AFTER 1 DAY Sepsis Event Note - Evaluation Sepsis Screening Result: No Definite Risk - Focused Exam Vital Signs: Vital Signs Temp Pulse Resp BP Pulse Ox 09/30/20 11:07 36.7 C 83 14 131/67 99 09/30/20 07:57 36.3 C 71 12 107/73 99 09/30/20 05:23 36.6 C 77 20 131/73 99 - Problem List Review Problem List Initiated/Reviewed/Updated: Yes - My Orders Last 24 Hours: My Active Orders 09/29/20 18:00 cefTRIAXone [Rocephin] 1 gm Sodium Chloride 0.9% [Normal Saline] 100 ml IV Q24H 09/30/20 09:00 Multivitamins [Tab-A-Davis] 1 tab PO DAILY 09/30/20 13:53 Up With Assistance [RC] ASDIRECTED 10/01/20 05:00 CBC WITH AUTO DIFF [HEME] DAILY COMPREHENSIVE METABOLIC PN,CMP [CHEM] DAILY 10/02/20 05:00 CBC WITH AUTO DIFF [HEME] DAILY COMPREHENSIVE METABOLIC PN,CMP [CHEM] DAILY 10/03/20 05:00 CBC WITH AUTO DIFF [HEME] DAILY COMPREHENSIVE METABOLIC PN,CMP [CHEM] DAILY - Plan Plan:: Patient is an 80-year-old male with a history of bladder cancer, prostate cancer and chronic use of suprapubic catheter for was brought to the ER due to generalized weakness and fatigue for 2 days. Assessment: Early sepsis 2nd to UTI and possible pneumonia, resolved LA 2.3 UTI, chronic use of suprapubic cath, which was replaced in the ER today, recurrent Pneumonia, LLL CXR - small density within left lung base either due to atelectasis or small area of pneumonia. 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 Creatinine has been around 1.8 since 12/25/2019 Tobacco use disorder Plan: 1. Continue to be monitored in telemetry. 2. Urine culture -positive for gram-negative rods. Sensitivity pending Continue ceftriaxone. Awaiting for sensitivity 3. Continue to treat his pneumonia as a community-acquired pneumonia with ceftriaxone and azithromycin. Sputum culture pending MRSA screen pending 4. 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 Diabetic diet. Home medication glimepiride is on hold. Insulin sliding scale. Adjust insulin based on sugar levels 6. Creatinine 1.7. Avoid nephrotoxic meds. Repeat renal function in morning 7. Smoking cessation counseled. Nicotine patch if necessary 8. DVT prophylaxis: Heparin 9. CODE STATUS: Full Deposition Outpatient PT 1 or 2 more days
[2020-09-30] MEDS: cefTRIAXone 1 GM in Sodium Chloride 0.9% 100 ML IV SCH (17:32)
[2020-09-30] MEDS: Insulin Lispro 100 UNIT/ML 10 ML Vial SUBCUT SCH (21:11)
[2020-10-01] MEDS: Heparin Sodium 5,000 Units/ML Vial SUBCUT SCH ×3 (05:34→21:58)
--- NOTE | 2020-10-01 08:11 | PCM.PN ---
- General Info Date of Service: 10/01/20 Subjective Update: Overnight no events reported per patient and nursing staff. At this time patient has no complaints. - Review of Systems General: Reports: No Symptoms - Patient Data Vitals - Most Recent: Last Vital Signs Temp 97.3 F 10/01/20 04:39 Pulse 78 10/01/20 04:39 Resp 16 10/01/20 04:39 BP 104/68 10/01/20 04:39 Pulse Ox 98 10/01/20 04:39 Weight - Most Recent: 189 lb 8 oz I&O - Last 24 Hours: Intake & Output 09/30/20 10/01/20 10/01/20 22:59 06:59 14:59 Intake Total 1370 600 Output Total 1450 1000 Balance -80 -400 Lab Results Last 24 Hours: Laboratory Results - last 24 hr 09/30/20 09/30/20 09/30/20 Range/Units 11:09 16:53 21:06 WBC (4.23-9.07) K/mm3 RBC (4.63-6.08) M/mm3 Hgb (13.7-17.5) gm/dl Hct (40.1-51.0) % MCV (79.0-92.2) fl MCH (25.7-32.2) pg MCHC (32.2-35.5) g/dl RDW Std Deviation (35.1-43.9) fL Plt Count (163-337) K/mm3 MPV (9.4-12.3) fl Neut % (Auto) (34.0-67.9) % Lymph % (Auto) (21.8-53.1) % [place] % (Auto) (5.3-12.2) % Eos % (Auto) (0.8-7.0) Baso % (Auto) (0.1-1.2) % Neut # (Auto) (1.78-5.38) K/mm3 Lymph # (Auto) (1.32-3.57) K/mm3 [place] # (Auto) (0.30-0.82) K/mm3 Eos # (Auto) (0.04-0.54) K/mm3 Baso # (Auto) (0.01-0.08) K/mm3 Sodium (136-145) mEq/L Potassium (3.5-5.1) mEq/L Chloride (98-107) mEq/L Carbon Dioxide (21-32) mEq/L Anion Gap (5-15) BUN (7-18) mg/dL Creatinine (0.7-1.3) mg/dL Est Cr Clr Drug Dosing mL/min Estimated GFR (MDRD) (>60) mL/min BUN/Creatinine Ratio (14-18) Glucose (83-115) mg/dL POC Glucose 149 H 214 H 199 H (70-99) mg/dL Calcium (8.5-10.1) mg/dL Total Bilirubin (0.2-1.0) mg/dL AST (15-37) U/L ALT (16-63) U/L Alkaline Phosphatase (46-116) U/L Total Protein (6.4-8.2) g/dl Albumin (3.4-5.0) g/dl Globulin gm/dL Albumin/Globulin Ratio (1-2) 10/01/20 10/01/20 10/01/20 Range/Units 05:01 05:01 07:46 WBC 5.60 (4.23-9.07) K/mm3 RBC 3.71 L (4.63-6.08) M/mm3 Hgb 10.7 L (13.7-17.5) gm/dl Hct 33.1 L (40.1-51.0) % MCV 89.2 (79.0-92.2) fl MCH 28.8 (25.7-32.2) pg MCHC 32.3 (32.2-35.5) g/dl RDW Std Deviation 41.9 (35.1-43.9) fL Plt Count 246 (163-337) K/mm3 MPV 9.9 (9.4-12.3) fl Neut % (Auto) 51.4 (34.0-67.9) % Lymph % (Auto) 29.3 (21.8-53.1) % [place] % (Auto) 15.0 H (5.3-12.2) % Eos % (Auto) 3.6 (0.8-7.0) Baso % (Auto) 0.5 (0.1-1.2) % Neut # (Auto) 2.88 (1.78-5.38) K/mm3 Lymph # (Auto) 1.64 (1.32-3.57) K/mm3 [place] # (Auto) 0.84 H (0.30-0.82) K/mm3 Eos # (Auto) 0.20 (0.04-0.54) K/mm3 Baso # (Auto) 0.03 (0.01-0.08) K/mm3 Sodium 132 L (136-145) mEq/L Potassium 3.9 (3.5-5.1) mEq/L Chloride 98 (98-107) mEq/L Carbon Dioxide 23 (21-32) mEq/L Anion Gap 14.9 (5-15) BUN 22 H (7-18) mg/dL Creatinine 1.6 H (0.7-1.3) mg/dL Est Cr Clr Drug Dosing 38.57 mL/min Estimated GFR (MDRD) 42 (>60) mL/min BUN/Creatinine Ratio 13.8 L (14-18) Glucose 129 H (83-115) mg/dL POC Glucose 138 H (70-99) mg/dL Calcium 8.4 L (8.5-10.1) mg/dL Total Bilirubin 0.2 (0.2-1.0) mg/dL AST 27 (15-37) U/L ALT 34 (16-63) U/L Alkaline Phosphatase 87 (46-116) U/L Total Protein 7.2 (6.4-8.2) g/dl Albumin 2.7 L (3.4-5.0) g/dl Globulin 4.5 gm/dL Albumin/Globulin Ratio 0.6 L (1-2) Dino Results Last 24 Hours: Microbiology 09/28/20 16:02 Aerobic Blood Culture - Preliminary Blood - Venous - Lab Draw NO GROWTH AFTER 2 DAYS Anaerobic Blood Culture - Preliminary NO GROWTH AFTER 2 DAYS 09/28/20 15:55 Aerobic Blood Culture - Preliminary Blood - Venous NO GROWTH AFTER 2 DAYS Anaerobic Blood Culture - Preliminary NO GROWTH AFTER 2 DAYS 09/28/20 17:40 Urine Culture - Preliminary Urine, Suprapubic Bladder Asp Gram Negative Rods Med Orders - Current: Current Medications Acetaminophen (Acetaminophen 325 Mg Tab) 650 mg PO Q6H PRN PRN Reason: Pain (Mild 1-3)/fever Last Admin: 09/29/20 23:27 Dose: 650 mg Documented by: Albuterol/Ipratropium (Albuterol/Ipratropium 3.0-0.5 Mg/3 Ml Neb Soln) 3 ml NEB Q4H PRN PRN Reason: Shortness Of Breath/wheezing Chlorthalidone (Chlorthalidone 25 Mg Tab) 12.5 mg PO DAILY [facility] Last Admin: 09/30/20 08:41 Dose: 12.5 mg Documented by: Docusate Sodium (Docusate Sodium 100 Mg Cap) 100 mg PO BID PRN PRN Reason: Constipation Heparin Sodium (Porcine) (Heparin Sodium 5,000 Units/Ml Vial) 5,000 units SUBCUT Q8HR [facility] Last Admin: 10/01/20 05:34 Dose: 5,000 units Documented by: Hydralazine HCl (Hydralazine 20 Mg/Ml Sdv) 10 mg IVPUSH Q4H PRN PRN Reason: Hypertension Promethazine HCl 12.5 mg/ (Sodium Chloride) 50.5 mls @ 100 mls/hr IV Q6H PRN PRN Reason: Nausea/Vomiting Ceftriaxone Sodium 1 gm/ (Sodium Chloride) 100 mls @ 200 mls/hr IV Q24H [facility] Last Admin: 09/30/20 17:32 Dose: 200 mls/hr Documented by: Azithromycin 500 mg/ Sodium (Chloride) 250 mls @ 250 mls/hr IV Q24H [facility] Last Admin: 09/30/20 13:34 Dose: 250 mls/hr Documented by: Insulin Human Lispro (Insulin Lispro 100 Unit/Ml) 0 unit SUBCUT QIDACANDBED [facility]; Protocol Last Admin: 09/30/20 21:11 Dose: Not Given Documented by: Multivitamins/Minerals/Vitamin C (Multivitamin Tab) 1 tab PO DAILY [facility] Last Admin: 09/30/20 08:41 Dose: 1 tab Documented by: Simvastatin (Simvastatin 40 Mg Tab) 40 mg PO DAILY [facility] Last Admin: 09/30/20 08:41 Dose: 40 mg Documented by: Sodium Bicarbonate (Sodium Bicarbonate 650 Mg Tab) 650 mg PO DAILY [facility] Last Admin: 09/30/20 08:41 Dose: 650 mg Documented by: Sodium Chloride (Sodium Chloride 0.9% 10 Ml Syringe) 10 ml FLUSH ASDIRECTED PRN PRN Reason: Keep Vein Open Last Admin: 09/28/20 16:00 Dose: 10 ml Documented by: Discontinued Medications Sodium Chloride (Normal Saline) 1,000 mls @ 150 mls/hr IV NOW STA Stop: 09/28/20 22:45 Last Admin: 09/28/20 17:20 Dose: 150 mls/hr Documented by: Ceftriaxone Sodium 2 gm/ (Sodium Chloride) 100 mls @ 200 mls/hr IV ONETIME ONE Stop: 09/28/20 18:04 Last Admin: 09/28/20 17:45 Dose: 200 mls/hr Documented by: Lactated Ringer's (Ringers, Lactated) 1,000 mls @ 80 mls/hr IV ASDIRECTED [facility] Last Admin: 09/30/20 05:18 Dose: 80 mls/hr Documented by: Sodium Chloride (Normal Saline) 500 mls @ 200 mls/hr IV .BOLUS ONE Stop: 09/28/20 21:44 Last Admin: 09/28/20 20:00 Dose: 200 mls/hr Documented by: Insulin Human Lispro (Insulin Lispro 100 Units/Ml 3 Ml Vial) 0 unit SUBCUT QIDACANDBED [facility]; Protocol Last Admin: 09/30/20 17:51 Dose: Not Given Documented by: Morphine Sulfate (Morphine 2 Mg/Ml Syringe) 2 mg IVPUSH Q4H PRN PRN Reason: Pain (severe 7-10) Stop: 09/29/20 18:45 Non-Formulary Medication (Leuprolide Acetate) 1 dose IM ASDIRECTED [facility] Sodium Bicarbonate (Sodium Bicarbonate 650 Mg Tab) 650 mg PO BID [facility] - Exam Quality Assessment: No: Supplemental Oxygen General: Alert, Oriented HEENT: Pupils Equal Neck: No JVD Lungs: Clear to Auscultation, Normal Respiratory Effort Cardiovascular: Regular Rate, Regular Rhythm GI/Abdominal Exam: Normal Bowel Sounds, Soft, Non-Tender, No Organomegaly, No Distention, Other (Colostomy in place with normal output) (Male) Exam: Other (Suprapubic catheter in place) Back Exam: Normal Inspection Extremities: Normal Inspection, Non-Tender, No Pedal Edema Skin: Warm, Dry, Intact Neurological: Normal Speech Psy/Mental Status: Alert, Normal Affect, Normal Mood - Patient Data Lab Results Last 24 hrs: Laboratory Results - last 24 hr 09/30/20 09/30/20 09/30/20 Range/Units 11:09 16:53 21:06 WBC (4.23-9.07) K/mm3 RBC (4.63-6.08) M/mm3 Hgb (13.7-17.5) gm/dl Hct (40.1-51.0) % MCV (79.0-92.2) fl MCH (25.7-32.2) pg MCHC (32.2-35.5) g/dl RDW Std Deviation (35.1-43.9) fL Plt Count (163-337) K/mm3 MPV (9.4-12.3) fl Neut % (Auto) (34.0-67.9) % Lymph % (Auto) (21.8-53.1) % [place] % (Auto) (5.3-12.2) % Eos % (Auto) (0.8-7.0) Baso % (Auto) (0.1-1.2) % Neut # (Auto) (1.78-5.38) K/mm3 Lymph # (Auto) (1.32-3.57) K/mm3 [place] # (Auto) (0.30-0.82) K/mm3 Eos # (Auto) (0.04-0.54) K/mm3 Baso # (Auto) (0.01-0.08) K/mm3 Sodium (136-145) mEq/L Potassium (3.5-5.1) mEq/L Chloride (98-107) mEq/L Carbon Dioxide (21-32) mEq/L Anion Gap (5-15) BUN (7-18) mg/dL Creatinine (0.7-1.3) mg/dL Est Cr Clr Drug Dosing mL/min Estimated GFR (MDRD) (>60) mL/min BUN/Creatinine Ratio (14-18) Glucose (83-115) mg/dL POC Glucose 149 H 214 H 199 H (70-99) mg/dL Calcium (8.5-10.1) mg/dL Total Bilirubin (0.2-1.0) mg/dL AST (15-37) U/L ALT (16-63) U/L Alkaline Phosphatase (46-116) U/L Total Protein (6.4-8.2) g/dl Albumin (3.4-5.0) g/dl Globulin gm/dL Albumin/Globulin Ratio (1-2) 05/02/21 05/02/21 05/02/21 Range/Units 05:01 05:01 07:46 WBC 5.60 (4.23-9.07) K/mm3 RBC 3.71 L (4.63-6.08) M/mm3 Hgb 10.7 L (13.7-17.5) gm/dl Hct 33.1 L (40.1-51.0) % MCV 89.2 (79.0-92.2) fl MCH 28.8 (25.7-32.2) pg MCHC 32.3 (32.2-35.5) g/dl RDW Std Deviation 41.9 (35.1-43.9) fL Plt Count 246 (163-337) K/mm3 MPV 9.9 (9.4-12.3) fl Neut % (Auto) 51.4 (34.0-67.9) % Lymph % (Auto) 29.3 (21.8-53.1) % [place] % (Auto) 15.0 H (5.3-12.2) % Eos % (Auto) 3.6 (0.8-7.0) Baso % (Auto) 0.5 (0.1-1.2) % Neut # (Auto) 2.88 (1.78-5.38) K/mm3 Lymph # (Auto) 1.64 (1.32-3.57) K/mm3 [place] # (Auto) 0.84 H (0.30-0.82) K/mm3 Eos # (Auto) 0.20 (0.04-0.54) K/mm3 Baso # (Auto) 0.03 (0.01-0.08) K/mm3 Sodium 132 L (136-145) mEq/L Potassium 3.9 (3.5-5.1) mEq/L Chloride 98 (98-107) mEq/L Carbon Dioxide 23 (21-32) mEq/L Anion Gap 14.9 (5-15) BUN 22 H (7-18) mg/dL Creatinine 1.6 H (0.7-1.3) mg/dL Est Cr Clr Drug Dosing 38.57 mL/min Estimated GFR (MDRD) 42 (>60) mL/min BUN/Creatinine Ratio 13.8 L (14-18) Glucose 129 H (83-115) mg/dL POC Glucose 138 H (70-99) mg/dL Calcium 8.4 L (8.5-10.1) mg/dL Total Bilirubin 0.2 (0.2-1.0) mg/dL AST 27 (15-37) U/L ALT 34 (16-63) U/L Alkaline Phosphatase 87 (46-116) U/L Total Protein 7.2 (6.4-8.2) g/dl Albumin 2.7 L (3.4-5.0) g/dl Globulin 4.5 gm/dL Albumin/Globulin Ratio 0.6 L (1-2) Result Diagrams: 10/01/20 05:01 10/01/20 05:01 Dino Results Last 24 hrs: Microbiology 09/28/20 16:02 Aerobic Blood Culture - Preliminary Blood - Venous - Lab Draw NO GROWTH AFTER 2 DAYS Anaerobic Blood Culture - Preliminary NO GROWTH AFTER 2 DAYS 09/28/20 15:55 Aerobic Blood Culture - Preliminary Blood - Venous NO GROWTH AFTER 2 DAYS Anaerobic Blood Culture - Preliminary NO GROWTH AFTER 2 DAYS 09/28/20 17:40 Urine Culture - Preliminary Urine, Suprapubic Bladder Asp Gram Negative Rods Sepsis Event Note - Evaluation Sepsis Screening Result: No Definite Risk - Focused Exam Vital Signs: Vital Signs Temp Pulse Resp BP Pulse Ox 10/01/20 04:39 97.3 F 78 16 104/68 98 09/30/20 21:09 98.4 F 77 20 130/66 96 - Problem List Review Problem List Initiated/Reviewed/Updated: Yes - Assessment Assessment:: UTI -UC 09/28: Growing gram negative rods -Afebrile, normal white blood cell count -Previous urine cultures on 12/25/2019 show Klebsiella,Providencia, Abiotrophia consistent with chronic conization in the setting of suprapubic catheter -[place]esico-rectal fistula history Leukocytosis -Resolving, cell count 14.71 on admission now 5.60 -In setting of urinary tract infection as above -Left lung base pna vs atelectasis, favor atelectasis given clinical presentation Anemia -Hemoglobin stable at 10.7 hematocrit 33 SERGEY on Chronic kidney disease -Cr currently 1.6, which did improve from 2.1 at time of admission. 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 Sensitivity pending Continue ceftriaxone. Awaiting for sensitivity Continue to treat his pneumonia as a community-acquired pneumonia with ceftriaxone and azithromycin. Sputum culture pending MRSA screen pending Follow with PCP and his urology/oncology Diabetic diet. Home medication glimepiride is on hold. Insulin sliding scale. Adjust insulin based on sugar levels Avoid nephrotoxic meds. Repeat renal function in morning Smoking cessation counseled. Nicotine patch if necessary DVT prophylaxis: Heparin CODE STATUS: Full Dispo: Discharge home when final sensitivity reported on urine culture to make sure patient doesnt have a resistant organism given suprapubic catheter and active colo-vesicular fistula.
[2020-10-01] MEDS: Insulin Lispro 100 UNIT/ML 10 ML Vial SUBCUT SCH ×4 (09:01→21:59)
[2020-10-01] MEDS: Sodium Bicarbonate 650 MG Tab PO SCH (09:02)
[2020-10-01] MEDS: Chlorthalidone 25 MG Tab PO SCH (09:02)
[2020-10-01] MEDS: Multivitamin Tab PO SCH (09:02)
[2020-10-01] MEDS: Simvastatin 40 MG Tab PO SCH (09:03)
[2020-10-01] MEDS: Azithromycin 500 MG in Sodium Chloride 0.9% 250 ML IV SCH (13:40)
[2020-10-01] MEDS ORDERED: Ertapenem 1 GM in Sodium Chloride 0.9% 50 ML IV SCH (17:00)
[2020-10-02] MEDS: Heparin Sodium 5,000 Units/ML Vial SUBCUT SCH ×2 (05:40→14:45)
[2020-10-02] MEDS: Insulin Lispro 100 UNIT/ML 10 ML Vial SUBCUT SCH ×2 (06:42→12:44)
[2020-10-02] MEDS: Multivitamin Tab PO SCH (08:09)
[2020-10-02] MEDS: Simvastatin 40 MG Tab PO SCH (08:09)
[2020-10-02] MEDS: Sodium Bicarbonate 650 MG Tab PO SCH (08:09)
[2020-10-02] MEDS: Chlorthalidone 25 MG Tab PO SCH (08:09)
--- NOTE | 2020-10-02 11:28 | PCM.DCSUM1 ---
Discharge Summary - Hospital Course Free Text/Narrative:: Discharge Dx: ESBL UTI [place]-vesicular fistula Leukocytosis Anemia SERGEY on CKD HPI: Patient is an 80-year-old male with a history of bladder cancer, prostate cancer and chronic use of suprapubic catheter for was brought to the ER due to generalized weakness and fatigue for 2 days. Otherwise the patient denies headache, dizziness, chest pain, abdominal pain, nausea, vomiting, fever or chills. Patient recalled that he had a cough a few days ago. He was hospitalized due to urosepsis in the past. In the ER, urinalysis compatible with infection. Suprapubic catheter was replaced into the ER. chest x-ray show a small density within the left lung base other due to atelectasis or small area of pneumonia if patient has infectious symptoms. He was admitted to our hospital on 12/26/2019 due to UTI. Hospital course: On presentation patient found to have leukocytosis with presumed urinary source. The patient did grow out gram-negative rods in the urine culture. The patient's urine culture was reviewed at time of presentation as he has previou sly been colonized with multiple bacteria secondary to suprapubic catheter. The patient had been started on Rocephin predicated on previous sensitivities however the patient was found to have ESBL in urine culture. Pt was started on Ertapenem secondary to ESBL. Discussed with the patient need to have outpatient follow up with primary surgeon for evaluation/treatment of colo-vesicular fistula. Suspect that the patient is high risk for ongoing complications from the colo-vesicular fistula given development of discharge patient's serum creatinine has improved to 1.6 it was 2.1 at time of admission. - Discharge Data Discharge Date: 10/02/20 Discharge Disposition: Home, Self-Care 01 Condition: Good - Referral to Home Health Primary Care Physician: Silvano Gregorio MD Patient to have outpatient infusions of Ertapenem x 7 days for ESBL. - Discharge Diagnosis/Problem(s) (1) UTI, Urinary tract infectious disease SNOMED Code(s): 85871022 ICD Code: N39.0 - URINARY TRACT INFECTION, SITE NOT SPECIFIED Status: Acute Current Visit: Yes - Patient Summary/Data Consults: Consultations 09/28/20 18:43 OT Evaluation and Treatment [CONS] Routine PT Evaluation and Treatment [CONS] Routine - Patient Instructions Diet: Diabetic Diet Wound/Incision Care: Change Dressing Daily Notify Provider of: Fever, Increased Pain, Swelling and Redness, Nausea and/or Vomiting - Discharge Plan *PRESCRIPTION DRUG MONITORING PROGRAM REVIEWED*: No *COPY OF PRESCRIPTION DRUG MONITORING REPORT IN PATIENT KYLE: No Prescriptions/Med Rec: Ertapenem [INVanz] 1 gm IV DAILY 7 Days #7 vial Home Medications: Home Meds Bicalutamide [Casodex] 50 mg PO DAILY 03/21/15 [History] Leuprolide Acetate [Lupron Depot] 1 dose IM ASDIRECTED 03/21/15 [History] Simvastatin [Zocor] 40 mg PO DAILY 03/21/15 [History] Chlorthalidone 12.5 mg PO DAILY 12/26/19 [History] Non-Formulary Medication [NF Drug] 1 applic TOP Q6H PRN 12/26/19 [History] Sodium Bicarbonate 650 mg PO DAILY 12/26/19 [History] Glimepiride 1 mg PO DAILY 09/28/20 [History] Multivitamin 1 tab PO DAILY 09/28/20 [History] Ertapenem [INVanz] 1 gm IV DAILY 7 Days #7 vial 10/02/20 [Rx] Oxygen Therapy Mode: Room Air Patient Handouts: Type 2 Diabetes Mellitus, Diagnosis, Adult, Sepsis, Diagnosis, Adult Forms: ED Department Discharge Referrals: Silvano Gregorio MD [Primary Care Provider] - - Discharge Summary/Plan Comment DC Time >30 min.: Yes - Patient Data Vitals - Most Recent: Last Vital Signs Temp 97.9 F 10/02/20 07:35 Pulse 80 10/02/20 07:35 Resp 16 10/02/20 07:35 BP 114/75 10/02/20 07:35 Pulse Ox 97 10/02/20 07:35 Weight - Most Recent: 189 lb I&O - Last 24 hours: Intake & Output 10/01/20 10/02/20 10/02/20 22:59 06:59 14:59 Intake Total 1240 300 Output Total 1250 1125 Balance -10 -825 Lab Results - Last 24 hrs: Laboratory Results - last 24 hr 10/01/20 10/01/20 10/02/20 Range/Units 17:17 21:57 06:01 WBC 6.04 (4.23-9.07) K/mm3 RBC 3.74 L (4.63-6.08) M/mm3 Hgb 10.8 L (13.7-17.5) gm/dl Hct 33.1 L (40.1-51.0) % MCV 88.5 (79.0-92.2) fl MCH 28.9 (25.7-32.2) pg MCHC 32.6 (32.2-35.5) g/dl RDW Std Deviation 41.5 (35.1-43.9) fL Plt Count 281 (163-337) K/mm3 MPV 9.6 (9.4-12.3) fl Neut % (Auto) 49.5 (34.0-67.9) % Lymph % (Auto) 31.3 (21.8-53.1) % [place] % (Auto) 15.4 H (5.3-12.2) % Eos % (Auto) 3.1 (0.8-7.0) Baso % (Auto) 0.5 (0.1-1.2) % Neut # (Auto) 2.99 (1.78-5.38) K/mm3 Lymph # (Auto) 1.89 (1.32-3.57) K/mm3 [place] # (Auto) 0.93 H (0.30-0.82) K/mm3 Eos # (Auto) 0.19 (0.04-0.54) K/mm3 Baso # (Auto) 0.03 (0.01-0.08) K/mm3 Manual Slide Review Abnormal smear Sodium (136-145) mEq/L Potassium (3.5-5.1) mEq/L Chloride (98-107) mEq/L Carbon Dioxide (21-32) mEq/L Anion Gap (5-15) BUN (7-18) mg/dL Creatinine (0.7-1.3) mg/dL Est Cr Clr Drug Dosing mL/min Estimated GFR (MDRD) (>60) mL/min BUN/Creatinine Ratio (14-18) Glucose (83-115) mg/dL POC Glucose 138 H 209 H (70-99) mg/dL Calcium (8.5-10.1) mg/dL Total Bilirubin (0.2-1.0) mg/dL AST (15-37) U/L ALT (16-63) U/L Alkaline Phosphatase (46-116) U/L Total Protein (6.4-8.2) g/dl Albumin (3.4-5.0) g/dl Globulin gm/dL Albumin/Globulin Ratio (1-2) 10/02/20 10/02/20 Range/Units 06:01 06:27 WBC (4.23-9.07) K/mm3 RBC (4.63-6.08) M/mm3 Hgb (13.7-17.5) gm/dl Hct (40.1-51.0) % MCV (79.0-92.2) fl MCH (25.7-32.2) pg MCHC (32.2-35.5) g/dl RDW Std Deviation (35.1-43.9) fL Plt Count (163-337) K/mm3 MPV (9.4-12.3) fl Neut % (Auto) (34.0-67.9) % Lymph % (Auto) (21.8-53.1) % [place] % (Auto) (5.3-12.2) % Eos % (Auto) (0.8-7.0) Baso % (Auto) (0.1-1.2) % Neut # (Auto) (1.78-5.38) K/mm3 Lymph # (Auto) (1.32-3.57) K/mm3 [place] # (Auto) (0.30-0.82) K/mm3 Eos # (Auto) (0.04-0.54) K/mm3 Baso # (Auto) (0.01-0.08) K/mm3 Manual Slide Review Sodium 131 L (136-145) mEq/L Potassium 4.3 (3.5-5.1) mEq/L Chloride 98 (98-107) mEq/L Carbon Dioxide 23 (21-32) mEq/L Anion Gap 14.3 (5-15) BUN 26 H (7-18) mg/dL Creatinine 1.8 H (0.7-1.3) mg/dL Est Cr Clr Drug Dosing 34.28 mL/min Estimated GFR (MDRD) 36 (>60) mL/min BUN/Creatinine Ratio 14.4 (14-18) Glucose 142 H (83-115) mg/dL POC Glucose 134 H (70-99) mg/dL Calcium 8.7 (8.5-10.1) mg/dL Total Bilirubin 0.2 (0.2-1.0) mg/dL AST 22 (15-37) U/L ALT 33 (16-63) U/L Alkaline Phosphatase 86 (46-116) U/L Total Protein 7.3 (6.4-8.2) g/dl Albumin 2.8 L (3.4-5.0) g/dl Globulin 4.5 gm/dL Albumin/Globulin Ratio 0.6 L (1-2) STARLA Results - Last 24 hrs: Microbiology 09/28/20 16:02 Aerobic Blood Culture - Preliminary Blood - Venous - Lab Draw NO GROWTH AFTER 3 DAYS Anaerobic Blood Culture - Preliminary NO GROWTH AFTER 3 DAYS 09/28/20 15:55 Aerobic Blood Culture - Preliminary Blood - Venous NO GROWTH AFTER 3 DAYS Anaerobic Blood Culture - Preliminary NO GROWTH AFTER 3 DAYS 09/28/20 17:40 Urine Culture - Preliminary Urine, Suprapubic Bladder Asp (Esbl) Escherichia Coli Aerococcus Urinae Med Orders - Current: Current Medications Acetaminophen (Acetaminophen 325 Mg Tab) 650 mg PO Q6H PRN PRN Reason: Pain (Mild 1-3)/fever Last Admin: 09/29/20 23:27 Dose: 650 mg Documented by: Albuterol/Ipratropium (Albuterol/Ipratropium 3.0-0.5 Mg/3 Ml Neb Soln) 3 ml NEB Q4H PRN PRN Reason: Shortness Of Breath/wheezing Chlorthalidone (Chlorthalidone 25 Mg Tab) 12.5 mg PO DAILY [facility] Last Admin: 10/02/20 08:09 Dose: 12.5 mg Documented by: Docusate Sodium (Docusate Sodium 100 Mg Cap) 100 mg PO BID PRN PRN Reason: Constipation Heparin Sodium (Porcine) (Heparin Sodium 5,000 Units/Ml Vial) 5,000 units SUBCUT Q8HR [facility] Last Admin: 10/02/20 05:40 Dose: 5,000 units Documented by: Hydralazine HCl (Hydralazine 20 Mg/Ml Sdv) 10 mg IVPUSH Q4H PRN PRN Reason: Hypertension Promethazine HCl 12.5 mg/ (Sodium Chloride) 50.5 mls @ 100 mls/hr IV Q6H PRN PRN Reason: Nausea/Vomiting Azithromycin 500 mg/ Sodium (Chloride) 250 mls @ 250 mls/hr IV Q24H [facility] Last Admin: 10/01/20 13:40 Dose: 250 mls/hr Documented by: Ertapenem 1 gm/ Sodium (Chloride) 50 mls @ 100 mls/hr IV DAILY@1800 [facility] Last Admin: 10/01/20 18:01 Dose: 100 mls/hr Documented by: Insulin Human Lispro (Insulin Lispro 100 Unit/Ml) 0 unit SUBCUT QIDACANDBED [facility]; Protocol Last Admin: 10/02/20 06:42 Dose: Not Given Documented by: Multivitamins/Minerals/Vitamin C (Multivitamin Tab) 1 tab PO DAILY [facility] Last Admin: 10/02/20 08:09 Dose: 1 tab Documented by: Simvastatin (Simvastatin 40 Mg Tab) 40 mg PO DAILY [facility] Last Admin: 10/02/20 08:09 Dose: 40 mg Documented by: Sodium Bicarbonate (Sodium Bicarbonate 650 Mg Tab) 650 mg PO DAILY [facility] Last Admin: 10/02/20 08:09 Dose: 650 mg Documented by: Sodium Chloride (Sodium Chloride 0.9% 10 Ml Syringe) 10 ml FLUSH ASDIRECTED PRN PRN Reason: Keep Vein Open Last Admin: 09/28/20 16:00 Dose: 10 ml Documented by: Discontinued Medications Sodium Chloride (Normal Saline) 1,000 mls @ 150 mls/hr IV NOW STA Stop: 09/28/20 22:45 Last Admin: 09/28/20 17:20 Dose: 150 mls/hr Documented by: Ceftriaxone Sodium 2 gm/ (Sodium Chloride) 100 mls @ 200 mls/hr IV ONETIME ONE Stop: 09/28/20 18:04 Last Admin: 09/28/20 17:45 Dose: 200 mls/hr Documented by: Lactated Ringer's (Ringers, Lactated) 1,000 mls @ 80 mls/hr IV ASDIRECTED [facility] Last Admin: 09/30/20 05:18 Dose: 80 mls/hr Documented by: Ceftriaxone Sodium 1 gm/ (Sodium Chloride) 100 mls @ 200 mls/hr IV Q24H [facility] Last Admin: 09/30/20 17:32 Dose: 200 mls/hr Documented by: Sodium Chloride (Normal Saline) 500 mls @ 200 mls/hr IV .BOLUS ONE Stop: 09/28/20 21:44 Last Admin: 09/28/20 20:00 Dose: 200 mls/hr Documented by: Insulin Human Lispro (Insulin Lispro 100 Units/Ml 3 Ml Vial) 0 unit SUBCUT QIDACANDBED [facility]; Protocol Last Admin: 09/30/20 17:51 Dose: Not Given Documented by: Morphine Sulfate (Morphine 2 Mg/Ml Syringe) 2 mg IVPUSH Q4H PRN PRN Reason: Pain (severe 7-10) Stop: 09/29/20 18:45 Non-Formulary Medication (Leuprolide Acetate) 1 dose IM ASDIRECTED [facility] Sodium Bicarbonate (Sodium Bicarbonate 650 Mg Tab) 650 mg PO BID [facility]
[2020-10-02 12:15] VITALS: BP 120/66; PULSE 96
[2020-10-02] MEDS: Azithromycin 500 MG in Sodium Chloride 0.9% 250 ML IV SCH (12:44)
[2020-10-02] MEDS ORDERED: Ertapenem 1 GM in Sodium Chloride 0.9% 50 ML IV SCH (14:00)
--- NOTE | 2020-10-02 17:38 | PCM.SN.2 ---
- Free Text/Narrative Note: 10/02/20 1000 Consult request for PICC placement. Dr and patient states IV antibiotics for 7-10 days. PICC not indicated for short term IV therapy. Patient has adequate veins. Discussed IV managment for patient instead of PICC with patient, family and Dr. All agree to proceed with IV use only and not place a PICC line. Tristan
--- NOTE | 2020-10-10 07:05 | PCM.EKG ---
#1 Interpretation EKG Date: 09/28/20 Time: 15:30 Rhythm: Other Rate (Beats/Min): 115 (Occasional PVCs) [place]: LAD-Left [place] Deviation (Mild left axis deviation -14 degrees) P-Wave: Present QRS: Other (Initial poor R wave progression) ST-T: Other (Diffuse early repolarization pattern) QT: Normal
== END 2020-10-02 15:02 | disposition home or self-care (01) | DRG 698 ==
LOC: JD.ED 15:25 → JD.MS 18:26
PROVIDERS: ADMIT Internal Medicine; ATTEND Internal Medicine
DX: T83.510A Infection and inflammatory reaction due to cystostomy catheter, initial encounter (principal); R53.1 Weakness; A41.51 Sepsis due to Escherichia coli [E. coli]; J18.9 Pneumonia, unspecified organism; A41.89 Other specified sepsis; N39.0 Urinary tract infection, site not specified; E87.1 Hypo-osmolality and hyponatremia; N17.9 Acute kidney failure, unspecified; N32.1 Vesicointestinal fistula; D84.9 Immunodeficiency, unspecified; E11.22 Type 2 diabetes mellitus with diabetic chronic kidney disease; F17.210 Nicotine dependence, cigarettes, uncomplicated; R33.9 Retention of urine, unspecified; H54.7 Unspecified visual loss; N18.32 Chronic kidney disease, stage 3b; Z20.822 Contact with and (suspected) exposure to COVID-19; E78.00 Pure hypercholesterolemia, unspecified; M79.606 Pain in leg, unspecified; G89.29 Other chronic pain; Z85.46 Personal history of malignant neoplasm of prostate; Z85.51 Personal history of malignant neoplasm of bladder; Z98.49 Cataract extraction status, unspecified eye; Z79.899 Other long term (current) drug therapy; Z79.84 Long term (current) use of oral hypoglycemic drugs; Z93.6 Other artificial openings of urinary tract status
CPT/HCPCS: 36415; 51702; 71045; 80053; 81001; 83605; 85007; 85027; 85610; 86140; 87040 ×2; 87086; 87088 ×2; 87184; 87186; 96365; 99285; J0696; J7030; U0002; 82947; 83735; 83880; 84100; 84484; 85025; 94762; 97116-GP; 97162-GP; 97165-GO; 97530-GO; 99223; 99233; 99239; 99283; A9270-GY; J0456; J1335; J1644; J7040; J7050; J7120

== ENCOUNTER 2022-11-28 17:16 | Emergency (ER) | payer MEDICARE, BC ==
[2022-11-28 18:04] LABS: BASOPHILS ABSOLUTE AUTO 0.02 K/mm3 (0.01-0.08); BASOPHILS PERCENT AUTO 0.2 % (0.1-1.2); EOSINOPHILS ABSOLUTE AUTO 0.03 K/mm3 (0.04-0.54); EOSINOPHILS PERCENT AUTO 0.3 (0.8-7.0); HEMOGLOBIN 8.4 gm/dl (13.7-17.5); IMMATURE GRAN ABSOLUTE AUTO 0.02 K/mm3 (0.00-0.10); IMMATURE GRAN PERCENT AUTO 0.2 % (<=1.0); LYMPHOCYTES ABSOLUTE AUTO 1.11 K/mm3 (1.32-3.57); LYMPHOCYTES PERCENT AUTO 9.6 % (21.8-53.1); MEAN CORPUSCULAR HEMOGLOBIN 27.4 pg (25.7-32.2); MEAN CORPUSCULAR HGB CONC 31.1 g/dl (32.2-35.5); MEAN CORPUSCULAR VOLUME 87.9 fl (79.0-92.2); MONOCYTES ABSOLUTE AUTO 1.04 K/mm3 (0.30-0.82); NEUTROPHILS ABSOLUTE AUTO 9.36 K/mm3 (1.78-5.38); NEUTROPHILS PERCENT AUTO 80.7 % (34.0-67.9); PLATELET COUNT,PLT 302 K/mm3 (163-337); RED BLOOD CELL COUNT 3.07 M/mm3 (4.63-6.08); WHITE BLOOD CELL COUNT,WBC 11.58 K/mm3 (4.23-9.07)
[2022-11-28] MEDS ORDERED: Sodium Chloride 0.9% 1,000 ML IV ONE ×2 (18:04→19:43)
[2022-11-28] MEDS ORDERED: Sodium Chloride 0.9% 10 ML Syringe FLUSH PRN (18:04)
[2022-11-28 18:23] LABS: INR 0.98; PROTHROMBIN TIME 10.5 SECONDS (9.7-12.0)
[2022-11-28 18:24] LABS: PTT,PARTIAL THROMBOPLSTIN TIME 32.4 SECONDS (21.7-31.4)
[2022-11-28 18:35] LABS: A/G RATIO 0.7 (1-2); ALBUMIN 2.8 g/dl (3.4-5.0); BILIRUBIN TOTAL 0.4 mg/dL (0.2-1.0); BUN/CREATININE RATIO 18.1 (14-18); CALCIUM 8.7 mg/dL (8.5-10.1); CREATININE 2.7 mg/dL (0.7-1.3); EST CRCL DRUG DOSING (CG) 22.08 mL/min; PROTEIN TOTAL,TP 7.1 g/dl (6.4-8.2)
[2022-11-28 18:43] LABS: LACTIC ACID 2.6 mmol/L (0.4-2.0)
[2022-11-28 18:50] LABS: C-REACTIVE PROTEIN 18.3 mg/dL (<1.0)
[2022-11-28] MEDS ORDERED: Piperacillin/Tazobactam 4.5 GM in Sodium Chloride 0.9% 100 ML IV ONE (19:19)
[2022-11-28 19:29] LABS: APPEARANCE,URINE CLOUDY (Clear); BILIRUBIN,URINE NEGATIVE (Negative); COLOR,URINE YELLOW (Yellow); GLUCOSE,URINE NEGATIVE (Negative); KETONES,URINE NEGATIVE (Negative); LEUKOCYTE ESTERASE,URINE 1+ (Negative); NITRITE,URINE NEGATIVE (Negative); OCCULT BLOOD,URINE 2+ (Negative); PROTEIN,URINE 3+ (Negative); UROBILINOGEN,URINE 0.2 (0.2-1.0)
[2022-11-28] MEDS ORDERED: Levofloxacin/Dextrose 5%-Water 750 MG in Premix Bag 1 BAG IV ONE (19:42)
[2022-11-28 20:12] LABS: SQUAMOUS EPITHELIAL CELLS,UR 0-5 /hpf (0-5); WBC CLUMPS,URINE FEW /hpf (NOT SEEN); WBC,URINE 40-50 /hpf (0-5)
[2022-11-28 20:13] LABS: BACTERIA,URINE MANY /hpf (FEW); FINE GRANULAR CASTS,URINE 0-5 /lpf (0-5); HYALINE CASTS,URINE 0-5 /lpf (0-5); MUCUS,URINE RARE /hpf (FEW)
[2022-11-28 22:38] VITALS: BP 134/71; PULSE 88
== END 2022-11-28 22:30 | disposition home or self-care (01) ==
LOC: JD.ED 17:16
DX: N12 Tubulo-interstitial nephritis, not specified as acute or chronic (principal); E78.00 Pure hypercholesterolemia, unspecified; I10 Essential (primary) hypertension; J44.9 Chronic obstructive pulmonary disease, unspecified; E11.9 Type 2 diabetes mellitus without complications; Z79.84 Long term (current) use of oral hypoglycemic drugs; Z79.899 Other long term (current) drug therapy
CPT/HCPCS: 36415; 51705; 80053; 81001; 83605; 85025; 85610; 85730; 86140; 87040; 87086; 93005; 96361; 96365; 99285; J1956; J3490; J7030; 93010; 99284

== ENCOUNTER 2022-12-12 06:54 | Day surgery (SDC) | payer MEDICARE, BC ==
[~2022-12-12 06:54] MED LIST: Lactated Ringers 1,000 ML IV SCH; Sodium Chloride 0.9% 10 ML Syringe FLUSH PRN; Sodium Chloride 0.9% 10 ML Syringe FLUSH SCH
[2022-12-12] MEDS ORDERED: Propofol 200 MG/20 ML SDV ONE (07:00)
[2022-12-12] MEDS ORDERED: Midazolam 1 MG/ML 2 ML SDV ONE (07:00)
[2022-12-12] MEDS ORDERED: Lidocaine 1% 2 ML ONE (07:00)
[2022-12-12] MEDS ORDERED: fentaNYL 100 MCG/2 ML SDV ONE (07:01)
[2022-12-12] MEDS ORDERED: Bupivacaine 0.5% 30 ML SDV ONE (07:14)
[2022-12-12] MEDS ORDERED: Lidocaine 1% 30 ML SDV ONE (07:14)
[2022-12-12] MEDS ORDERED: Ondansetron 4 MG/2 ML SDV IVPUSH PRN (07:29)
[2022-12-12] MEDS ORDERED: fentaNYL 100 MCG/2 ML SDV IVPUSH PRN (07:29)
[2022-12-12] MEDS ORDERED: ceFAZolin 2 GM Vial ONE (08:22)
[2022-12-12 11:24] VITALS: BP 133/74; PULSE 76
== END 2022-12-12 10:55 | disposition home or self-care (01) ==
LOC: JD.SDS 06:54
PROVIDERS: ATTEND Podiatrist Foot & Ankle Surgery
DX: M86.672 Other chronic osteomyelitis, left ankle and foot (principal); I73.9 Peripheral vascular disease, unspecified; E11.40 Type 2 diabetes mellitus with diabetic neuropathy, unspecified; L97.522 Non-pressure chronic ulcer of other part of left foot with fat layer exposed; I10 Essential (primary) hypertension; E78.5 Hyperlipidemia, unspecified; F17.210 Nicotine dependence, cigarettes, uncomplicated; E78.00 Pure hypercholesterolemia, unspecified; Z79.899 Other long term (current) drug therapy; Z79.82 Long term (current) use of aspirin; Z98.890 Other specified postprocedural states; J44.9 Chronic obstructive pulmonary disease, unspecified
CPT/HCPCS: 28810; 82947; J0690; J2250; J2704; J3010; J3490; J7120

== ENCOUNTER 2022-12-31 21:29 | Emergency (ER) | payer MEDICARE, BC ==
[2023-01-01 00:58] VITALS: PULSE 93
[2023-01-01 00:59] VITALS: BP 150/92
== END 2022-12-31 23:35 | disposition home or self-care (01) ==
LOC: JD.ED 21:29
DX: Z53.21 Procedure and treatment not carried out due to patient leaving prior to being seen by health care provider (principal)

== ENCOUNTER 2023-01-31 21:41 | Emergency (ER) | payer MEDICARE, BC ==
[2023-01-31] MEDS ORDERED: Sodium Chloride 0.9% 1,000 ML IV ONE (22:08)
[2023-01-31 22:16] LABS: APPEARANCE,URINE CLOUDY (Clear); BILIRUBIN,URINE NEGATIVE (Negative); COLOR,URINE YELLOW (Yellow); GLUCOSE,URINE NEGATIVE (Negative); KETONES,URINE NEGATIVE (Negative); LEUKOCYTE ESTERASE,URINE 3+ (Negative); NITRITE,URINE POSITIVE (Negative); OCCULT BLOOD,URINE 2+ (Negative); PH,URINE 5.5 (5.0-8.0); PROTEIN,URINE 3+ (Negative); UROBILINOGEN,URINE 0.2 (0.2-1.0)
[2023-01-31 22:25] LABS: BASOPHILS PERCENT AUTO 0.3 % (0.0-1.0); EOSINOPHILS PERCENT AUTO 0.3 % (0.0-6.0); HEMATOCRIT 28.8 % (42.0-52.0); HEMOGLOBIN 9.4 gm/dl (14.0-18.0); IMMATURE GRAN ABSOLUTE AUTO 0.04 K/mm3 (0.00-0.05); IMMATURE GRAN PERCENT AUTO 0.4 % (0.0-0.4); LYMPHOCYTES ABSOLUTE AUTO 0.8 K/mm3 (1.0-4.8); LYMPHOCYTES PERCENT AUTO 8.5 % (24.0-44.0); MEAN CORPUSCULAR HEMOGLOBIN 28.8 pg (28.0-32.0); MEAN CORPUSCULAR HGB CONC 32.6 g/dl (32.0-36.0); MEAN CORPUSCULAR VOLUME 88.3 fl (83.0-99.0); MEAN PLATELET VOLUME 9.4 fl (9.4-12.4); MONOCYTES ABSOLUTE AUTO 0.9 K/mm3 (0.0-0.8); MONOCYTES PERCENT AUTO 9.6 % (0.0-8.0); NEUTROPHILS ABSOLUTE AUTO 7.2 K/mm3 (1.8-7.7); NEUTROPHILS PERCENT AUTO 80.9 % (41.0-71.0); PLATELET COUNT,PLT 229 K/mm3 (150-400); RED BLOOD CELL COUNT 3.26 M/mm3 (4.52-5.90); WHITE BLOOD CELL COUNT,WBC 8.94 K/mm3 (3.9-11.3)
[2023-01-31 22:37] LABS: RBC,URINE 20-30 /hpf (0-5); WBC,URINE >100 /hpf (0-5)
[2023-01-31 22:38] LABS: BACTERIA,URINE MANY /hpf (FEW); MUCUS,URINE FEW /hpf (FEW)
[2023-01-31 22:53] LABS: A/G RATIO 0.7 (1-2); ANION GAP 18.8 (5-15); BILIRUBIN TOTAL 0.4 mg/dL (0.2-1.0); BUN/CREATININE RATIO 16.4 (14-18); CALCIUM 8.6 mg/dL (8.5-10.1); CREATININE 2.5 mg/dL (0.7-1.3); EST CRCL DRUG DOSING (CG) 23.85 mL/min; POTASSIUM,K 3.8 mEq/L (3.5-5.1); PROTEIN TOTAL,TP 7.5 g/dl (6.4-8.2)
[2023-01-31] MEDS ORDERED: Sulfamethoxazole/Trimethoprim 800-160 MG Tab PO ONE (23:01)
[2023-01-31 23:22] LABS: C-REACTIVE PROTEIN 24.7 mg/dL (<1.0)
[2023-01-31 23:47] VITALS: BP 140/94; PULSE 88
== END 2023-01-31 23:47 | disposition home or self-care (01) ==
LOC: JD.ED 21:41
DX: N39.0 Urinary tract infection, site not specified (principal); I10 Essential (primary) hypertension; E78.00 Pure hypercholesterolemia, unspecified; E11.9 Type 2 diabetes mellitus without complications; Z79.899 Other long term (current) drug therapy; Z86.16 Personal history of COVID-19
CPT/HCPCS: 36415; 80053; 81001; 85025; 86140; 87086; 87088; 87186; 96360; 99284; A9270; J7030

== ENCOUNTER 2025-01-22 16:40 | Emergency (ER) | payer MEDICARE, BC ==
[2025-01-22 18:04] LABS: BASOPHILS ABSOLUTE AUTO 0.0 K/mm3 (0.0-0.2); BASOPHILS PERCENT AUTO 0.5 % (0.0-1.0); EOSINOPHILS ABSOLUTE AUTO 0.1 K/mm3 (0.0-0.4); EOSINOPHILS PERCENT AUTO 0.6 % (0.0-6.0); IMMATURE GRAN ABSOLUTE AUTO 0.03 K/mm3 (0.00-0.05); IMMATURE GRAN PERCENT AUTO 0.4 % (0.0-0.4); LYMPHOCYTES ABSOLUTE AUTO 0.9 K/mm3 (1.0-4.8); LYMPHOCYTES PERCENT AUTO 11.4 % (24.0-44.0); MEAN PLATELET VOLUME 9.7 fl (9.4-12.4); MONOCYTES ABSOLUTE AUTO 1.0 K/mm3 (0.0-0.8); MONOCYTES PERCENT AUTO 11.7 % (0.0-8.0); NEUTROPHILS ABSOLUTE AUTO 6.2 K/mm3 (1.8-7.7); NEUTROPHILS PERCENT AUTO 75.4 % (41.0-71.0); NRBC ABSOLUTE 0.00 (0.00-0.02); NRBC PERCENT 0.0 % (0.0-0.2); RED BLOOD CELL COUNT 3.40 M/mm3 (4.52-5.90); WHITE BLOOD CELL COUNT,WBC 8.22 K/mm3 (3.9-11.3)
[2025-01-22 18:07] LABS: PLATELET COUNT,PLT 318 K/mm3 (150-400)
[2025-01-22 18:10] LABS: INR 1.01
[2025-01-22 18:21] LABS: A/G RATIO 0.7 (1-2); ALANINE AMINOTRANSFERASE,ALT 22.0 U/L (16-63); ASPARTATE AMNIOTRANSFERASE,AST 20.0 U/L (15-37); BILIRUBIN TOTAL 0.3 mg/dL (0.2-1.0); BLOOD UREA NITROGEN,BUN 39.0 mg/dL (7-18); CARBON DIOXIDE,CO2 26.0 mEq/L (21-32); CHLORIDE,CL 100.0 mEq/L (98-107); CREATINE KINASE,CK 41.0 U/L (39-308); CREATININE 2.3 mg/dL (0.7-1.3); EST CRCL DRUG DOSING (CG) 25.01 mL/min; ESTIMATED GFR 27.0 mL/min (>60); GLUCOSE RANDOM 141.0 mg/dL (70-99); POTASSIUM,K 4.4 mEq/L (3.5-5.1); PROTEIN TOTAL,TP 7.5 g/dl (6.4-8.2); SODIUM,NA 135.0 mEq/L (136-145); TROPONIN I HIGH SENSITIVITY 25.0 pg/mL (<=76)
[2025-01-22 19:18] LABS: APPEARANCE,URINE CLOUDY (Clear); GLUCOSE,URINE NEGATIVE (Negative); OCCULT BLOOD,URINE 1+ (Negative)
[2025-01-22 19:30] LABS: SQUAMOUS EPITHELIAL CELLS,UR 0-5 /hpf (0-5); WBC CLUMPS,URINE FEW /hpf (NOT SEEN)
[2025-01-22 20:32] VITALS: BP 141/69; PULSE 93
== END 2025-01-22 20:08 | disposition home or self-care (01) ==
LOC: JD.ED 16:40
DX: N39.0 Urinary tract infection, site not specified (principal); I12.9 Hypertensive chronic kidney disease with stage 1 through stage 4 chronic kidney disease, or unspecified chronic kidney disease; N18.4 Chronic kidney disease, stage 4 (severe); E11.22 Type 2 diabetes mellitus with diabetic chronic kidney disease; J44.9 Chronic obstructive pulmonary disease, unspecified; E78.00 Pure hypercholesterolemia, unspecified; Z79.899 Other long term (current) drug therapy; Z79.84 Long term (current) use of oral hypoglycemic drugs; Z79.02 Long term (current) use of antithrombotics/antiplatelets
CPT/HCPCS: 36415; 71045; 80053; 81001; 82550; 83605; 83690; 83735; 83880; 84484; 85025; 85610; 87086; 87088; 87186; 93005; 96374; 99285; J0696; 93010; 99283

== ENCOUNTER 2025-02-21 18:08 | Emergency (ER) | payer MEDICARE, BC ==
[2025-02-21] MEDS ORDERED: Sodium Chloride 0.9% 10 ML Syringe FLUSH PRN (18:10)
[2025-02-21 18:38] LABS: BASOPHILS ABSOLUTE AUTO 0.0 K/mm3 (0.0-0.2); BASOPHILS PERCENT AUTO 0.3 % (0.0-1.0); EOSINOPHILS ABSOLUTE AUTO 0.0 K/mm3 (0.0-0.4); EOSINOPHILS PERCENT AUTO 0.1 % (0.0-6.0); IMMATURE GRAN ABSOLUTE AUTO 0.07 K/mm3 (0.00-0.05); IMMATURE GRAN PERCENT AUTO 0.4 % (0.0-0.4); LYMPHOCYTES ABSOLUTE AUTO 1.0 K/mm3 (1.0-4.8); LYMPHOCYTES PERCENT AUTO 6.5 % (24.0-44.0); MEAN PLATELET VOLUME 9.2 fl (9.4-12.4); MONOCYTES ABSOLUTE AUTO 1.0 K/mm3 (0.0-0.8); MONOCYTES PERCENT AUTO 6.0 % (0.0-8.0); NEUTROPHILS ABSOLUTE AUTO 13.8 K/mm3 (1.8-7.7); NEUTROPHILS PERCENT AUTO 86.7 % (41.0-71.0); NRBC ABSOLUTE 0.00 (0.00-0.02); NRBC PERCENT 0.0 % (0.0-0.2); PLATELET COUNT,PLT 318 K/mm3 (150-400); RED BLOOD CELL COUNT 3.28 M/mm3 (4.52-5.90); WHITE BLOOD CELL COUNT,WBC 15.94 K/mm3 (3.9-11.3)
[2025-02-21 18:52] LABS: INR 1.05
[2025-02-21 19:08] LABS: A/G RATIO 0.7 (1-2); ALANINE AMINOTRANSFERASE,ALT 27 U/L (16-63); ASPARTATE AMNIOTRANSFERASE,AST 18 U/L (15-37); BILIRUBIN TOTAL 0.4 mg/dL (0.2-1.0); BLOOD UREA NITROGEN,BUN 41 mg/dL (7-18); CARBON DIOXIDE,CO2 22 mEq/L (21-32); CHLORIDE,CL 103 mEq/L (98-107); CREATININE 2.8 mg/dL (0.7-1.3); ESTIMATED GFR 21 mL/min (>60); GLUCOSE RANDOM 158 mg/dL (70-99); POTASSIUM,K 4.7 mEq/L (3.5-5.1); PROTEIN TOTAL,TP 7.4 g/dl (6.4-8.2); SODIUM,NA 137 mEq/L (136-145); TROPONIN I HIGH SENSITIVITY 27 pg/mL (<=76)
[2025-02-21 19:09] LABS: APPEARANCE,URINE SLT CLOUDY (Clear); GLUCOSE,URINE NEGATIVE (Negative); OCCULT BLOOD,URINE 2+ (Negative)
[2025-02-21 19:19] LABS: EPITHELIAL CELLS,URINE 0-5 /hpf (0-5)
[2025-02-21 20:19] VITALS: BP 146/81; PULSE 89
== END 2025-02-21 20:18 | disposition home or self-care (01) ==
LOC: JD.ED 18:08
DX: N39.0 Urinary tract infection, site not specified (principal); W19.XXXA Unspecified fall, initial encounter
CPT/HCPCS: 36415; 51702; 70450; 71045; 80053; 81001; 83735; 83880; 84484; 85025; 85610; 86140; 87086; 93005; 96361; 96374; 99284; J0696; J7030